=== PATIENT | male | born 1945 | race Caucasian/White ===

== ENCOUNTER 2016-02-27 20:24 | Inpatient (IN) | payer MEDICARE, MEDICAID ==
[~2016-02-27] VITALS: Ht 180.3 cm; Wt 106.1 kg
[~2016-02-27 20:24] MED LIST: ALLO100 PO; COLA100C3 PO; COUM4TAB PO; COUM5TAB PO; FURO1TAB60 PO; GEMF600 PO; ISOS30TA15 PO; METO-309 PO; NEUR600T PO; PAXI10TA2 PO; POTA-163 PO; PRED20 PO; SYMB160A INH; TAMS5CAP PO; ZOCO80TA PO
[2016-02-27 20:25] VITALS: O2SAT 93
[2016-02-27 20:37] VITALS: BP 107/61; PULSE 112; RESP 35; TEMP 97.7; O2SAT 77
--- NOTE | 2016-02-27 20:44 | PD ---
HPI Chief Complaint: Respiratory Distress Time Seen by Provider: 20:31 Travel History International Travel<30 days: No Contact w/Intl Traveler<30days: No History of Present Illness HPI 70 y/o male presents by ambulance with shortness of breath. On CPAP his oxygen saturation was 76 on arrival. Patient can talk in very short sentences through BiPAP and denies any chest pain. He confirms he does not want to be intubated and has a DNR status sheet with him. Significant additional history limited on initial evaluation. The ambulance team gave him 100 mg of Lasix and a dose of nitroglycerin additionally PFSH Past Medical History Narrative Medical By records Arthritis: Yes Asthma: No Autoimmune Disease: No Anxiety: Yes Depression: Yes Heart Rhythm Problems: Yes Cancer: No Cardiac Catheterization: Yes Cardiovascular Problems: Yes ([place], CHF, CABG, AICD 2009) High Cholesterol: Yes Chemotherapy: No Chest Pain: No Congestive Heart Failure: No COPD: No Cerebrovascular Accident: No Coronary Artery Disease: Yes Diabetes: No Diminished Hearing: No Endocrine: No Gastrointestinal Disorders: Yes (GERD) Genitourinary: No Headaches: Yes Hiatal Hernia: No Hypertension: Yes Immune Disorder: No Implanted Vascular Access Dvce: Yes Kidney Stones: No Musculoskeletal: Yes (OA, HX OF R TOTAL HIP) Neurologic: Yes (SHORT TERM MEMORY LOSS, HX OF SEIZURES) Psychiatric: Yes (COGNITIVE MEMORY LOSS, HX OF ANTISOCIAL PERSONALITY DISORDER) Reproductive: No Respiratory: Yes Immunizations Current: No Myocardial Infarction: Yes Radiation Therapy: No Renal Failure: No Seizures: Yes Sickle Cell Disease: No Sleep Apnea: No Thyroid Disease: No Past Surgical History Narrative Surgical By records Abdominal Surgery: No AICD: Yes (MEDTRONIC) Cardiac Surgery: Yes (3 VESSEL BYPASS , AICD IMPLANTED 2009) Coronary Artery Bypass Graft: Yes (3 VESSELS) Ear Surgery: No Endocrine Surgery: No Eye Surgery: No Genitourinary Surgery: Yes (PROSTATE) Gynecologic Surgery: No Joint Replacement: No Oral Surgery: Yes (MED INDUCED SEIZURES) Pacemaker: Yes Thoracic Surgery: No Other Surgery: Yes Social History Narrative Social History By records Alcohol Use: No Tobacco Use: Yes (2 PPD) Substance Use: No Allergies-Medications (Allergen,Severity, Reaction): Coded Allergies: Depakote (Verified Allergy, Severe, SEIZURES, 02/27/16) "doesn't control seizures" Dilantin (Verified Allergy, Severe, SEIZURES, 02/27/16) "doesn't control seizures" Tetanus Toxoid (Verified Allergy, Severe, SWELLING, 02/27/16) MAJOR LOCAL SWELLING *MDRO Multi-Drug Resistant Organism (Verified Allergy, Unknown, 02/27/16) Klebsiella pneumoniae ESBL + 08/2012 Reported Meds & Prescriptions Reported Meds & Active Scripts Active Prednisone 20 Mg Tab 20 Mg PO DAILY Symbicort Inh (Budesonide/Formoterol Fumarate) 160-4.5 Mcg/Act Aero 1 Puff INH Q12HR Lasix (Furosemide) 40 Mg Tab 40 Mg PO DAILY 30 Days Reported Metoprolol Tartrate 25 Mg Tab 25 Mg PO BID Metformin (Metformin HCl) 500 Mg Tab 500 Mg PO BIDPC With meals Flomax (Tamsulosin HCl) 0.4 Mg Cap 0.4 Mg PO HS Zocor (Simvastatin) 80 Mg Tab 80 Mg PO HS Coumadin (Warfarin) 5 Mg Tab 5 Mg PO DAILY, SAT & SUN Coumadin (Warfarin) 4 Mg Tab 4 Mg PO DAILY, MON-MON Neurontin (Gabapentin) 600 Mg Tab 1,200 Mg PO TID Colace (Docusate Sodium) 100 Mg Cap 100 Mg PO BID Potassium Chloride ER (Potassium Chloride) 20 Meq Tab 20 Meq PO DAILY Paxil (Paroxetine HCl) 10 Mg Tab 10 Mg PO DAILY Isosorbide Dinitrate 30 Mg Tab 30 Mg PO DAILY Zyloprim (Allopurinol) 100 Mg Tab 100 Mg PO DAILY Review of Systems ROS Limitations: Clinical Condition Physical Exam Exam Limitations: Clinical Condition Narrative General: In severe distress, focused exam performed Skin: Diaphoretic Eyes: Pupils equal Cardiovascular: irregular rate and rhythm Respiratory: Increased respiratory effort noted, Rales bilaterally Abdomen: Soft, nontender Extremities: Mild edema bilaterally Neuro: Moves all extremities, answers basic questions in short sentences, eyes open Data Data Last Documented VS Vital Signs Date Time Temp Pulse Resp B/P Pulse Ox O2 Delivery O2 Flow Rate FiO2 02/27/16 22:02 65 20 116/70 98 BiPAP 50 02/27/16 20:37 97.7 Orders Electrocardiogram (02/27/16 20:31) Complete Blood Count With Diff (02/27/16 20:31) Comprehensive Metabolic Panel (02/27/16 20:31) Prothrombin Time / Inr (Pt) (02/27/16 20:31) Act Partial Throm Time (Ptt) (02/27/16 20:31) Lactic Acid Sepsis Protocol (02/27/16 20:31) Magnesium (Mg) (02/27/16 20:31) Phosphorus (Po4) (02/27/16 20:31) Ckmb (Isoenzyme) Profile (02/27/16 20:31) Troponin I (02/27/16 20:31) Urinalysis - C+S If Indicated (02/27/16 20:31) Blood Culture (02/27/16 20:31) Chest, Single Ap (02/27/16 20:31) Blood Glucose (02/27/16 20:31) Ecg Monitoring (02/27/16 20:31) Iv Access Insert/Monitor (02/27/16 20:31) Oximetry (02/27/16 20:31) Oxygen Administration (02/27/16 20:31) Urinary Catheter Insert/Apply (02/27/16 20:31) Resp Bipap / Cpap Non Invas Vt (02/27/16 ) Code Status (02/27/16 20:40) Arterial Blood Gas (Abg) (02/27/16 21:30) B-Type Natriuretic Peptide (02/27/16 22:27) Cefepime Inj (Maxipime Inj) (02/27/16 22:29) Azithromycin Inj (Zithromax Inj) (02/27/16 22:29) Admit Order (Ed Use Only) (02/27/16 22:39) Labs Laboratory Tests Test 02/27/16 02/27/16 02/27/16 20:40 20:50 21:40 White Blood Count 11.5 TH/MM3 Red Blood Count 4.28 MIL/MM3 Hemoglobin 14.1 GM/DL Hematocrit 42.3 % Mean Corpuscular Volume 98.7 FL Mean Corpuscular Hemoglobin 32.8 PG Mean Corpuscular Hemoglobin 33.3 % Concent Red Cell Distribution Width 13.2 % Platelet Count 264 TH/MM3 Mean Platelet Volume 7.8 FL Neutrophils (%) (Auto) 52.5 % Lymphocytes (%) (Auto) 36.5 % Monocytes (%) (Auto) 8.8 % Eosinophils (%) (Auto) 1.8 % Basophils (%) (Auto) 0.4 % Neutrophils # (Auto) 6.1 TH/MM3 Lymphocytes # (Auto) 4.2 TH/MM3 Monocytes # (Auto) 1.0 TH/MM3 Eosinophils # (Auto) 0.2 TH/MM3 Basophils # (Auto) 0.0 TH/MM3 CBC Comment DIFF FINAL Differential Comment Prothrombin Time 25.0 SEC Prothromb Time International 2.2 RATIO Ratio Activated Partial 39.9 SEC Thromboplast Time Sodium Level 135 MEQ/L Potassium Level 3.7 MEQ/L Chloride Level 98 MEQ/L Carbon Dioxide Level 23.9 MEQ/L Anion Gap 13 MEQ/L Blood Urea Nitrogen 28 MG/DL Creatinine 1.78 MG/DL Estimat Glomerular Filtration 38 ML/MIN Rate Random Glucose 300 MG/DL Lactic Acid Level 5.5 mmol/L Calcium Level 8.9 MG/DL Phosphorus Level 5.5 MG/DL Magnesium Level 2.1 MG/DL Total Bilirubin 0.3 MG/DL Aspartate Amino Transf 12 U/L (AST/SGOT) Alanine Aminotransferase 17 U/L (ALT/SGPT) Alkaline Phosphatase 58 U/L Total Creatine Kinase 83 U/L Troponin I 0.05 NG/ML Total Protein 7.9 GM/DL Albumin 3.8 GM/DL Urine Color YELLOW Urine Turbidity CLEAR Urine pH 6.0 Urine Specific [place] 1.011 Urine Protein NEG mg/dL Urine Glucose (UA) NEG mg/dL Urine Ketones NEG mg/dL Urine Occult Blood NEG Urine Nitrite NEG Urine Bilirubin NEG Urine Urobilinogen LESS THAN 2.0 MG/DL Urine Leukocyte Esterase NEG Urine RBC LESS THAN 1 /hpf Urine WBC LESS THAN 1 /hpf Urine Hyaline Casts 5 /lpf Microscopic Urinalysis Comment CULT NOT INDICATED Blood Gas Puncture Site RT RADIAL Blood Gas Patient Temperature 98.6 Blood Gas HCO3 24 mmol/L Blood Gas Base Excess -1.8 mmol/L Blood Gas Oxygen Saturation 92 % Arterial Blood pH 7.31 Arterial Blood Partial 49 mmHg Pressure CO2 Arterial Blood Partial 363 mmHG Pressure O2 Arterial Blood Oxygen Content 19.8 Vol % Arterial Blood 5.1 % Carboxyhemoglobin Arterial Blood Methemoglobin 2.1 % Blood Gas Hemoglobin 14.6 G/DL Oxygen Delivery Device BIPAP 12PS 8 PEEP Blood Gas Inspired Oxygen 100 % MDM Medical Decision Making Medical Screen Exam Complete: Yes Emergency Medical Condition: Yes Medical Record Reviewed: Yes (past history confirm, prior EKG reviewed, recent hospitalization with non-STEMI at end of January) Interpretation(s) EKG is atrial fibrillation at 105 with left bundle branch block which limits full interpretation CBC & BMP Diagram 02/27/16 20:40 Last 24 hours Impressions Chest X-Ray 02/27/162030 Signed Impressions: Service Date/Time: Saturday, February 27, 2016 20:57 - CONCLUSION: Findings consistent with cardiac decompensation CHF Hakan Chilel MD lactic acid is elevated at 5.5 ABG shows pH of 7.3 and PCO2 of 48 with PO2 of 363 so we'll decrease FiO2 to 40 % and continue pressor support of 12 and decreased PEEP to 6 and will continue to monitor Differential Diagnosis [place], CHF exacerbation, pneumonia, anemia, renal failure..... Narrative Course will check labs, cxr, ekg and place on bipap and follow, already received Lasix and nitroglycerin On recheck patient feels better on BiPAP and oxygen saturation is 96%. We'll continue to monitor Patient has improved on BiPAP and with review of gas Will titrate down FiO2. He 'll need to be closely monitored in the ICU. His lactate is significantly elevated at 5.5 so will add antibiotic therapy of cefepime and azithromycin to cover but given he isn't an active CHF exacerbation he clearly does not need IV fluid hydration and would worsen in regards if given fluids and lactate is likely elevated given significant CHF exacerbation. Critical Care Narrative Aggregate critical care time was 55 minutes. Time to perform other separately billable procedures was not included in the critical care time. My time did not include minutes spent treating any other patients simultaneously or on activities that did not directly contribute to the patient's treatment. The services I provided to this patient were to treat and/or prevent clinically significant deterioration that could result in: Respiratory failure, [place] I provided critical care services requiring my management, as noted below: Chart data review, documentation time, medication orders and management, vital sign assessments/reviewing monitor data, ordering and reviewing lab tests, ordering and interpreting/reviewing x-rays and diagnostic studies, care of the patient and discussion of the patient with the admitting physicians. Physician Communication Physician Communication dr beal agrees to admit Diagnosis Primary Impression: CHF exacerbation Qualified Code: I50.9 - Acute on chronic congestive heart failure, unspecified congestive heart failure type Additional Impressions: Acute hypercapnic respiratory failure Renal insufficiency Lactic acidosis Admitting Information Admitting Physician Requests: Admit Zabrina Almanzar MD Feb 27, 2016 20:44 Zabrina Almanzar MD Feb 27, 2016 20:44
[2016-02-27 20:52] VITALS: RESP 35; O2SAT 99
[2016-02-27 21:10] VITALS: BP 100/56; PULSE 76; RESP 30; O2SAT 100
--- NOTE | 2016-02-27 21:10 | RADRPT ---
EXAM DATE/TIME: 02/27/2016 20:57 [facility] COMPARISON: CHEST SINGLE AP, December 23, 2013, 10:52. CHEST SINGLE AP, February 09, 2016, 0:49. INDICATIONS : Short of Breath MEDICAL HISTORY : Hypertension. Chronic obstructive pulmonary disease. SURGICAL HISTORY : Pacemaker. CABG. ENCOUNTER: Initial ACUITY: 1 day PAIN SCORE: 0/10 LOCATION: Bilateral chest FINDINGS: Note is evidence of prior median sternotomy cardiac surgery is left ventricular cardiomegaly and a bi polar pacemaker AICD device overlying the left hemithorax. Pulmonary vascularity is prominent particu larly in the bases with perivascular edema consistent with CHF CONCLUSION: Findings consistent with cardiac decompensation CHF Hakan Chilel MD on February 27, 2016 at 21:07 Board Certified Radiologist. This report was verified electronically.
[2016-02-27 21:13] LABS: AUTOMATED NEUTROPHIL # 6.1 TH/MM3 (1.8-7.7); BASOPHIL % 0.4 % (0.0-2.0); EOSINOPHIL # 0.2 TH/MM3 (0-0.4); EOSINOPHIL % 1.8 % (0.0-4.0); HEMATOCRIT 42.3 % (39.0-51.0); HEMO FLAGS DIFF FINAL; LYMPH % 36.5 % (9.0-44.0); LYMPHOCYTE # 4.2 TH/MM3 (1.0-4.8); MEAN CELL VOLUME 98.7 FL (80.0-100.0); MEAN CORPUSCULAR HEMOGLOBIN 32.8 PG (27.0-34.0); MEAN CORPUSCULAR HGB CONC 33.3 % (32.0-36.0); MONO % 8.8 % (0.0-8.0); NEUT % 52.5 % (16.0-70.0); PLATELET COUNT 264 TH/MM3 (150-450); RED BLOOD COUNT 4.28 MIL/MM3 (4.50-5.90); RED CELL DISTRIBUTION WIDTH 13.2 % (11.6-17.2); WHITE BLOOD COUNT 11.5 TH/MM3 (4.0-11.0)
[2016-02-27 21:24] LABS: APTT (PATIENT) 39.9 SEC (24.3-30.1); INTERNATIONAL NORMALIZED RATIO 2.2 RATIO
[2016-02-27 21:34] LABS: ANION GAP 13 MEQ/L (5-15); AST (GOT) 12 U/L (15-37); BICARBONATE 23.9 MEQ/L (21.0-32.0); BLOOD UREA NITROGEN 28 MG/DL (7-18); CHLORIDE 98 MEQ/L (98-107); GLOMERULAR FILTRATION RATE 38 ML/MIN (>89); MAGNESIUM 2.1 MG/DL (1.5-2.5); POTASSIUM 3.7 MEQ/L (3.5-5.1); SODIUM (NA) 135 MEQ/L (136-145)
[2016-02-27 21:35] LABS: BLOOD, URINE NEG (NEG); COMMENT (UR) CULT NOT INDICATED; CULTURE IF INDICATED CULT NOT INDICATED; GLUCOSE,URINE NEG (NEG); HYALINE CAST, URINE 5 /lpf (RARE); KETONE, URINE NEG (NEG); NITRITE,URINE NEG (NEG); URINE COLOR YELLOW (YELLW/STRAW)
[2016-02-27 21:38] LABS: ALKALINE PHOSPHATASE 58 U/L (45-117); ALT (GPT) 17 U/L (12-78); TOTAL BILIRUBIN ADULT 0.3 MG/DL (0.2-1.0)
[2016-02-27 21:54] LABS: CREATINE KINASE 83 U/L (39-308)
[2016-02-27 22:02] VITALS: BP 116/70; PULSE 65; RESP 20; O2SAT 98
[2016-02-27] MEDS ORDERED: METF500T PO (22:25)
[2016-02-27] MEDS ORDERED: METO25TA3 PO (22:25)
[2016-02-27] MEDS ORDERED: AZITHROMYCIN INJ 500 MG in SODIUM CHLOR 0.9% 250 ML INJ 250 ML IV STA (22:29)
[2016-02-27] MEDS ORDERED: CEFEPIME INJ 2,000 MG in SODIUM CHLORIDE 0.9% INJ 100 ML IV STA (22:29)
[2016-02-27 22:34] LABS: BLOOD GAS BASE EXCESS -1.8 mmol/L (-2-2); BLOOD GAS CARBOXYHEMOGLOBIN 5.1 % (0-4); BLOOD GAS HCO3 24 mmol/L (22-26); BLOOD GAS METHEMOGLOBIN 2.1 % (0-2); BLOOD GAS O2 HGB SATURATION 92 % (90-100); BLOOD GAS OXYGEN CONTENT 19.8 Vol % (12.0-20.0); BLOOD GAS PCO2 49 mmHg (38-42); BLOOD GAS PO2 363 mmHG (61-120); BLOOD GAS TOTAL HGB 14.6 G/DL (12.0-16.0); TEMP CORR TO 98.6
[2016-02-27 22:35] LABS: CRITICAL VALUE YES; DRAW SITE RT RADIAL; FIO2 100 %; NUMBER OF ARTERIAL PUNCTURES 1; OXYGEN DEVICE BIPAP 12PS 8 PEEP; STAT YES; ULNAR PULSE PRESENT
[2016-02-27 22:54] LABS: LACTIC ACID GHOST NOT REPORTABLE
[2016-02-27 23:00] VITALS: O2SAT 99
[2016-02-27] MEDS ORDERED: GLUCAGON 1 MG/ML VIAL OTHER PRN (23:00)
[2016-02-27] MEDS ORDERED: MORPHINE SULFATE 4 MG/ML INJ IV PRN (23:00)
[2016-02-27] MEDS ORDERED: ACETAMINOPHEN 325 MG TAB PO PRN (23:00)
[2016-02-27] MEDS ORDERED: SODIUM CHLORIDE 0.9% FLUSH 5 ML FLUSH FLUSH PRN (23:00)
[2016-02-27] MEDS ORDERED: DEXTROSE 50% IN WATER 50 ML VIAL(D50) IV PUSH PRN (23:00)
[2016-02-27] MEDS ORDERED: ONDANSETRON HCL 4 MG/2 ML VIAL IVP PRN (23:00)
[2016-02-27] MEDS ORDERED: BISACODYL 10 MG SUPP PR PRN (23:00)
[2016-02-27] MEDS ORDERED: ACETAMINOPHEN/HYDROcodone 325 MG/5 MG TAB PO PRN (23:00)
--- NOTE | 2016-02-27 23:02 | HHI.HP ---
[facility] Non-Staff Admission Diagnosis chf exacerbation Diagnoses: (1) CHF exacerbation Diagnosis: Principal (2) COPD (chronic obstructive pulmonary disease) Diagnosis: Principal (3) Acute hypercapnic respiratory failure Diagnosis: Principal (4) Lactic acidosis Diagnosis: Principal (5) KATE (acute kidney injury) Diagnosis: Principal (6) DNR (do not resuscitate) Diagnosis: Principal Travel History International Travel<30 Days: No Contact w/Intl Traveler <30 Da: No Traveled to Known Affected Are: No History of Present Illness This is a 70-year-old DNR male with a PMH of Anxiety, Depression, CHF (Echo w/ EF 40-45%), CAD s/p CABG, AICD, COPD, Tobacco Abuse and DM who was brought to the ER by EMS secondary to SOB and acute respiratory failure. On EMS arrival, O2 sat 77% on RA, s/p Lasix 100mg IV and placed on CPAP. Currently on BIPAP w/ FIO2 50%, O2 sat 98%. Pt confirms he is DNR/DNI. Denies fevers or chills. BP 100/56, HR 76, RR 30, O2 sat 100% on BiPAP w/ 100% FIO2. WBC 11.5. Creatinine 1.78, previously 1.23 on 02/10/16. Lactic Acid 5.5. Troponin 0.05. INR 2.2. UA negative. CXR with cardiac decompensation, CHF. Review of Systems Other ROS: Limited secondary to being on BiPAP however largely negative. Past Family Social History Past Medical History PMH: Anxiety, Depression, CHF (Echo 02/09/16 w/ EF 40-45%), CAD s/p CABG, AICD , COPD, Tobacco Abuse and DM Past Surgical History PAST SURGICAL HISTORY: AICD, CABG, Prostate Surgery Allergies: Coded Allergies: Depakote (Verified Allergy, Severe, SEIZURES, 02/27/16) "doesn't control seizures" Dilantin (Verified Allergy, Severe, SEIZURES, 02/27/16) "doesn't control seizures" Tetanus Toxoid (Verified Allergy, Severe, SWELLING, 02/27/16) MAJOR LOCAL SWELLING *MDRO Multi-Drug Resistant Organism (Verified Allergy, Unknown, 02/27/16) Klebsiella pneumoniae ESBL + 08/2012 Family History PAST FAMILY HISTORY: Reviewed, positive for DM and CAD. Social History PAST SOCIAL HISTORY: Smokes 2ppd. Negative for alcohol or drugs. Physical Exam Vital Signs Vital Signs Date Time Temp Pulse Resp B/P Pulse Ox O2 Delivery O2 Flow Rate FiO2 02/27/16 22:02 65 20 116/70 98 BiPAP 50 02/27/16 21:10 76 30 100/56 100 BiPAP 100 02/27/16 20:52 35 99 BiPAP 100 02/27/16 20:40 86 35 97 BiPAP 100 02/27/16 20:37 97.7 112 35 107/61 77 Physical Exam PE: GENERAL: Middle-aged white male in no acute distress. Currently on BiPAP HEENT: PERRLA, EOMI. No scleral icterus or conjunctival pallor. No lid lag or facial droop. CARDIOVASCULAR: Regular rate and rhythm. No obvious murmurs to auscultation. No chest tenderness to palpation. RESPIRATORY: No obvious rhonchi or wheezing. Clear to auscultation. Breath sounds equal bilaterally, decreased at bases. GASTROINTESTINAL: Abdomen soft, non-tender, nondistended. BS normal. MUSCULOSKELETAL: Extremities without clubbing, cyanosis, or edema. No obvious deformities. NEUROLOGICAL: Awake, alert and oriented x4. No focal neurologic deficits. Moving both upper and lower extremities spontaneously. Laboratory Laboratory Tests Test 02/27/16 02/27/16 02/27/16 20:40 20:50 21:40 White Blood Count 11.5 Red Blood Count 4.28 Hemoglobin 14.1 Hematocrit 42.3 Mean Corpuscular Volume 98.7 Mean Corpuscular Hemoglobin 32.8 Mean Corpuscular Hemoglobin 33.3 Concent Red Cell Distribution Width 13.2 Platelet Count 264 Mean Platelet Volume 7.8 Neutrophils (%) (Auto) 52.5 Lymphocytes (%) (Auto) 36.5 Monocytes (%) (Auto) 8.8 Eosinophils (%) (Auto) 1.8 Basophils (%) (Auto) 0.4 Neutrophils # (Auto) 6.1 Lymphocytes # (Auto) 4.2 Monocytes # (Auto) 1.0 Eosinophils # (Auto) 0.2 Basophils # (Auto) 0.0 CBC Comment DIFF FINAL Differential Comment Prothrombin Time 25.0 Prothromb Time International 2.2 Ratio Activated Partial 39.9 Thromboplast Time Sodium Level 135 Potassium Level 3.7 Chloride Level 98 Carbon Dioxide Level 23.9 Anion Gap 13 Blood Urea Nitrogen 28 Creatinine 1.78 Estimat Glomerular Filtration 38 Rate Random Glucose 300 Lactic Acid Level 5.5 Calcium Level 8.9 Phosphorus Level 5.5 Magnesium Level 2.1 Total Bilirubin 0.3 Aspartate Amino Transf 12 (AST/SGOT) Alanine Aminotransferase 17 (ALT/SGPT) Alkaline Phosphatase 58 Total Creatine Kinase 83 Troponin I 0.05 Total Protein 7.9 Albumin 3.8 Urine Color YELLOW Urine Turbidity CLEAR Urine pH 6.0 Urine Specific [place] 1.011 Urine Protein NEG Urine Glucose (UA) NEG Urine Ketones NEG Urine Occult Blood NEG Urine Nitrite NEG Urine Bilirubin NEG Urine Urobilinogen LESS THAN 2.0 Urine Leukocyte Esterase NEG Urine RBC LESS THAN 1 Urine WBC LESS THAN 1 Urine Hyaline Casts 5 Microscopic Urinalysis Comment CULT NOT INDICATED Blood Gas Puncture Site RT RADIAL Blood Gas Patient Temperature 98.6 Blood Gas HCO3 24 Blood Gas Base Excess -1.8 Blood Gas Oxygen Saturation 92 Arterial Blood pH 7.31 Arterial Blood Partial 49 Pressure CO2 Arterial Blood Partial 363 Pressure O2 Arterial Blood Oxygen Content 19.8 Arterial Blood 5.1 Carboxyhemoglobin Arterial Blood Methemoglobin 2.1 Blood Gas Hemoglobin 14.6 Oxygen Delivery Device BIPAP 12PS 8 PEEP Blood Gas Inspired Oxygen 100 Date/Time Procedure Status Source Growth 02/27/16 20:40 Aerobic Blood Culture Received Blood Peripheral Pending 02/27/16 20:40 Anaerobic Blood Culture Received Blood Peripheral Pending Result Diagram: 02/27/16203902/27/162039 Assessment and Plan Problem List: (1) CHF (congestive heart failure) ICD Code: I50.9 Status: Acute (2) COPD (chronic obstructive pulmonary disease) ICD Code: J44.9 Status: Acute (3) Acute hypercapnic respiratory failure ICD Code: J96.02 Status: Acute (4) Lactic acidosis ICD Code: E87.2 Status: Acute (5) KATE (acute kidney injury) ICD Code: N17.9 Status: Acute (6) Tobacco abuse ICD Code: Z72.0 Status: Acute (7) DNR (do not resuscitate) ICD Code: Z66 Status: Acute Assessment and Plan A/P: 1. Acute Respiratory Failure: Hypercapnic. Likely multifactorial-CHF and COPD. O2 sat 77% on RA upon EMS arrival, currently on BIPAP weaned to 60% FIO2 w/ O2 sat 96%. Continue BIPAP, wean as tolerated. Pt confirms DNR/DNI status. 2. CHF: Acute on Chronic. Systolic. Echo 02/09/16 w/ EF 40-45%. BNP pending. CXR w/ CHF, images reviewed by me. S/p Lasix 100mg IV en route to ER , continue Lasix 40mg IV bid-caution w/ renal insufficiency. 3. COPD: Chronic Respiratory Failure w/ Acute Exacerbation. DuoNeb q4h and q2h prn. Resume home MDI. 4. Lactic Acidosis: Lactate 5.5, likely secondary to hypoxia rather than Sepsis. No infectious etiology noted, however will treat empirically for CAP w / Rocephin/Zithro. Repeat Lactic Acid in am. 5. KATE: Creatinine 1.78, previously 1.23 on 02/10/16. Likely dehydration from increased respiratory losses in combination w/ diuretic therapy. U/a negative, repeat labs in am. 6. DM: Sliding scale w/ Accu-Cheks. 7. DVT Prophylaxis: On Coumadin, INR therapeutic at 2.2. 8. Social work for d/c planning as needed. 9. Case discussed w/ ER physician at length. Physician Certification 2 Midnight Certification Type: Admission for Inpatient Services Order for Inpatient Services The services are ordered in accordance with Medicare regulations or non- Medicare payer requirements, as applicable. In the case of services not specified as inpatient-only, they are appropriately provided as inpatient services in accordance with the 2-midnight benchmark. Estimated LOS (days): 2 days is the estimated time the patient will need to remain in the hospital, assuming treatment plan goals are met and no additional complications. Post-Hospital Plan: Not yet determined Problem Qualifiers (1) CHF exacerbation: Qualified Code: I50.9 - Acute on chronic congestive heart failure, unspecified congestive heart failure type Carmen Jewell MD Feb 27, 2016 23:01
[2016-02-27] MEDS ORDERED: RESP: ALBUTEROL 2.5 MG/IPRATROPIUM 0.5 MG NEB (PRN) NEB (23:30)
[2016-02-28] VITALS (14 sets, daily range): BP systolic 98–130; BP diastolic 58–89; PULSE 61–89; RESP 16–22; TEMP 97.8–99; O2SAT 93–99
[2016-02-28] MEDS ORDERED: AZITHROMYCIN INJ 500 MG in SODIUM CHLOR 0.9% 250 ML INJ 250 ML IV SCH ×2 (01:00→23:00)
[2016-02-28] MEDS: cefTRIAXone INJ 1,000 MG in SODIUM CHLORIDE 0.9% INJ 100 ML IV SCH ×2 (02:00→23:06)
--- NOTE | 2016-02-28 05:18 | PD.CONS ---
[facility] Service Critical Care Medicine Consult Requested By Dr. Almanzar Reason for Consult CHF, respiratory failure on Bipap Primary Care Physician Non-Staff History of Present Illness 70 year-old male with past medical history of ischemic cardiomyopathy with chronic systolic heart failure (EF 40-45%), prior CABG, AICD, atrial fibrillation on chronic anticoagulation with warfarin, COPD, tobacco abuse, CKD stage III, with history of medical nonadherence who presents to [facility] with shortness of breath which she states began yesterday evening. He states he has had a very minimal nonproductive cough. He denies chest pain or hemoptysis. [facility] administered Lasix 100 mg IV and nitroglycerin. He was placed on CPAP per [facility] and arrived with sats in mid 70s. Was placed on Bipap per Dr. Almanzar, 01/27 and FIO2 was titrated to 40%. He indicated he is DNR/DNI to Dr. Almanzar and he confirms this to me as well. Following diuretics, he has had 1500 UOP. He has just been taken off Bipap and appears comfortable on 4 L nasal cannula with sats 99%. He is admitted to the hospitalist service. Review of Systems Respiratory: COMPLAINS OF: Shortness of breath Cardiovascular: COMPLAINS OF: Lower Extremity Edema Past Family Social History Allergies: Coded Allergies: Depakote (Verified Allergy, Severe, SEIZURES, 02/27/16) "doesn't control seizures" Dilantin (Verified Allergy, Severe, SEIZURES, 02/27/16) "doesn't control seizures" Tetanus Toxoid (Verified Allergy, Severe, SWELLING, 02/27/16) MAJOR LOCAL SWELLING *MDRO Multi-Drug Resistant Organism (Verified Allergy, Unknown, 02/27/16) Klebsiella pneumoniae ESBL + 08/2012 Past Medical History Hypertension Coronary artery disease with prior myocardial infarction Prior history of CABG Chronic systolic heart failure with ejection fraction of 40-45% Atrial fibrillation on chronic anticoagulations with warfarin Chronic kidney disease stage III COPD Tobacco abuse Depression Diabetes Peripheral neuropathy Past Surgical History 3 vessel CABG AICD 2009 Prostatectomy Social History He is an ongoing smoker 2 packs of cigarettes per day Denies use of alcohol or illicit drugs Physical Exam Vital Signs Vital Signs Date Time Temp Pulse Resp B/P Pulse Ox O2 Delivery O2 Flow Rate FiO2 02/28/16 04:00 65 02/28/16 04:00 98.0 65 19 109/76 94 02/28/16 03:41 97.8 65 19 130/77 94 02/28/16 01:30 99 4.00 02/28/16 00:01 70 18 114/66 99 BiPAP 40 02/27/16 23:00 99 40 02/27/16 22:02 65 20 116/70 98 BiPAP 50 02/27/16 21:10 76 30 100/56 100 BiPAP 100 02/27/16 20:52 35 99 BiPAP 100 02/27/16 20:40 86 35 97 BiPAP 100 02/27/16 20:37 97.7 112 35 107/61 77 02/27/16 20:25 93 100 Physical Exam Temp 97.8 HR 60s BP 136/77 sats 99% 4 L NC GENERAL: Well-nourished, well-developed patient sitting up in ED [facility]. SKIN: Warm and dry. HEAD: Atraumatic. Normocephalic. EYES: No scleral icterus. No injection or drainage. ENT: No nasal bleeding or discharge. Mucous membranes pink and moist. NECK: Trachea midline. No JVD. CARDIOVASCULAR: irregularly irregular. No murmurs rubs or gallops. RESPIRATORY: Bibasilar rales, breathing comfortably without accesssory muscle use. . GASTROINTESTINAL: Abdomen soft, non-tender, nondistended. MUSCULOSKELETAL: Extremities without clubbing, cyanosis, . 1+ bipedal edema. NEUROLOGICAL: Awake and alert. No obvious cranial nerve deficits. Motor grossly within normal limits. Normal speech. Laboratory Laboratory Tests Test 02/27/16 02/27/16 02/27/16 20:40 20:50 21:40 White Blood Count 11.5 Red Blood Count 4.28 Hemoglobin 14.1 Hematocrit 42.3 Mean Corpuscular Volume 98.7 Mean Corpuscular Hemoglobin 32.8 Mean Corpuscular Hemoglobin 33.3 Concent Red Cell Distribution Width 13.2 Platelet Count 264 Mean Platelet Volume 7.8 Neutrophils (%) (Auto) 52.5 Lymphocytes (%) (Auto) 36.5 Monocytes (%) (Auto) 8.8 Eosinophils (%) (Auto) 1.8 Basophils (%) (Auto) 0.4 Neutrophils # (Auto) 6.1 Lymphocytes # (Auto) 4.2 Monocytes # (Auto) 1.0 Eosinophils # (Auto) 0.2 Basophils # (Auto) 0.0 CBC Comment DIFF FINAL Differential Comment Prothrombin Time 25.0 Prothromb Time International 2.2 Ratio Activated Partial 39.9 Thromboplast Time Sodium Level 135 Potassium Level 3.7 Chloride Level 98 Carbon Dioxide Level 23.9 Anion Gap 13 Blood Urea Nitrogen 28 Creatinine 1.78 Estimat Glomerular Filtration 38 Rate Random Glucose 300 Lactic Acid Level 5.5 Calcium Level 8.9 Phosphorus Level 5.5 Magnesium Level 2.1 Total Bilirubin 0.3 Aspartate Amino Transf 12 (AST/SGOT) Alanine Aminotransferase 17 (ALT/SGPT) Alkaline Phosphatase 58 Total Creatine Kinase 83 Troponin I 0.05 Total Protein 7.9 Albumin 3.8 B-Type Natriuretic Peptide 1162 Urine Color YELLOW Urine Turbidity CLEAR Urine pH 6.0 Urine Specific [place] 1.011 Urine Protein NEG Urine Glucose (UA) NEG Urine Ketones NEG Urine Occult Blood NEG Urine Nitrite NEG Urine Bilirubin NEG Urine Urobilinogen LESS THAN 2.0 Urine Leukocyte Esterase NEG Urine RBC LESS THAN 1 Urine WBC LESS THAN 1 Urine Hyaline Casts 5 Microscopic Urinalysis Comment CULT NOT INDICATED Blood Gas Puncture Site RT RADIAL Blood Gas Patient Temperature 98.6 Blood Gas HCO3 24 Blood Gas Base Excess -1.8 Blood Gas Oxygen Saturation 92 Arterial Blood pH 7.31 Arterial Blood Partial 49 Pressure CO2 Arterial Blood Partial 363 Pressure O2 Arterial Blood Oxygen Content 19.8 Arterial Blood 5.1 Carboxyhemoglobin Arterial Blood Methemoglobin 2.1 Blood Gas Hemoglobin 14.6 Oxygen Delivery Device BIPAP 12PS 8 PEEP Blood Gas Inspired Oxygen 100 Date/Time Procedure Status Source Growth 02/27/16 20:40 Aerobic Blood Culture Received Blood Peripheral Pending 02/27/16 20:40 Anaerobic Blood Culture Received Blood Peripheral Pending Result Diagram: 02/27/16203902/27/162039 Assessment and Plan Assessment and Plan NEURO: Depression Peripheral neuropathy Continue Paxil 10 mg po daily Continue gabapentin 1200 tid RESP: Acute hypercapnic and hypoxemic respiratory failure on BiPAP (resolved) Pulmonary edema, improved COPD Nasal cannula wean as tolerated. Use BiPAP as needed. s/p Lasix 100 mg IV per [facility]. Lasix 40 mg IV q12 Continue Symbicort q 12 hours Continue DuoNeb every 4 hours. Albuterol every 2 hours when necessary. CV: Acute decompensated heart failure Chronic systolic heart failure Atrial fibrillation Hypertension Hyperlipidemia Continue Isordil 30 mg po daily Continue pravastatin 80 mg by mouth daily at bedtime Continue Lasix as per above. On chronic anticoagulation with warfarin for A. fib. INR is therapeutic GI: Heart healthy diet, 2000-calorie ADA FEN/RENAL: Chronic kidney disease stage III Regalado is in place as he is on diuretics. After his respiratory status improves Regalado catheter removed. ID: Leukocytosis Has been started on empiric antimicrobial coverage with ceftriaxone and azithromycin per primary team. HEME: Chronic anticoagulation Monitor CBC On chronic anticoagulation with warfarin for A. fib. INR is therapeutic ENDO: Diabetes mellitus Metformin on hold. Low-dose insulin sliding scale with bedside glucose AC/hs PROPH: Anticoagulation with warfarin will provide DVT prophylaxis as well. Stress ulcer prophylaxis is not indicated. ACCESS: Peripheral IV providing adequate access at this time. Level 3 consult. Patient has responded to diuresis and is currently off BiPAP. He is on nasal cannula and appears comfortable. Continue management per hospitalist service. Ana Muro MD Feb 28, 2016 05:18
[2016-02-28 05:45] LABS: AUTOMATED NEUTROPHIL # 8.3 TH/MM3 (1.8-7.7); BASOPHIL # 0.1 TH/MM3 (0-0.2); EOSINOPHIL % 0.3 % (0.0-4.0); HEMATOCRIT 38.8 % (39.0-51.0); HEMO FLAGS DIFF FINAL; LYMPHOCYTE # 1.4 TH/MM3 (1.0-4.8); MEAN CELL VOLUME 95.6 FL (80.0-100.0); MEAN CORPUSCULAR HEMOGLOBIN 32.4 PG (27.0-34.0); MEAN CORPUSCULAR HGB CONC 33.9 % (32.0-36.0); MONO % 9.8 % (0.0-8.0); NEUT % 75.9 % (16.0-70.0); PLATELET COUNT 212 TH/MM3 (150-450); RED BLOOD COUNT 4.06 MIL/MM3 (4.50-5.90); WHITE BLOOD COUNT 10.9 TH/MM3 (4.0-11.0)
[2016-02-28 06:20] LABS: ALKALINE PHOSPHATASE 50 U/L (45-117); ALT (GPT) 25 U/L (12-78); ANION GAP 7 MEQ/L (5-15); AST (GOT) 152 U/L (15-37); BLOOD UREA NITROGEN 26 MG/DL (7-18); CHLORIDE 100 MEQ/L (98-107); GLOMERULAR FILTRATION RATE 54 ML/MIN (>89); INTERNATIONAL NORMALIZED RATIO 2.6 RATIO; POTASSIUM 3.7 MEQ/L (3.5-5.1); PROTHROMBIN TIME - PATIENT 29.4 SEC (9.8-11.6); SODIUM (NA) 136 MEQ/L (136-145); TOTAL BILIRUBIN ADULT 0.4 MG/DL (0.2-1.0)
[2016-02-28] MEDS: INSULIN ASPART SUPPLEMENTAL SCALE SQ SCH ×4 (06:39→20:39)
[2016-02-28] MEDS: RESP: ALBUTEROL 2.5 MG/IPRATROPIUM 0.5 MG NEB (SCH) NEB ×4 (07:32→19:36)
--- NOTE | 2016-02-28 08:47 | HHI.FPPN ---
Subjective Remarks Admitted to the ICU overnight secondary to hypoxemia requiring BiPAP. Patient is now stable on 2 L nasal cannula. He denies any shortness of breath or chest pain. Denies cough or fever. States he is feeling much better than yesterday. (Lacey Mooney MD R3) Objective Vitals Vital Signs Date Time Temp Pulse Resp B/P Pulse Ox O2 Delivery O2 Flow Rate FiO2 02/28/16 07:33 97 Nasal Cannula 3.00 02/28/16 06:00 61 02/28/16 04:00 65 02/28/16 04:00 98.0 65 19 109/76 94 02/28/16 03:41 97.8 65 19 130/77 94 02/28/16 02:05 99 Nasal Cannula 3.00 02/28/16 02:00 94 Nasal Cannula 3.00 02/28/16 01:30 99 4.00 02/28/16 00:01 70 18 114/66 99 BiPAP 40 02/27/16 23:00 99 40 02/27/16 22:02 65 20 116/70 98 BiPAP 50 02/27/16 21:10 76 30 100/56 100 BiPAP 100 02/27/16 20:52 35 99 BiPAP 100 02/27/16 20:40 86 35 97 BiPAP 100 02/27/16 20:37 97.7 112 35 107/61 77 02/27/16 20:25 93 100 I/O 02/27/16 02/27/16 02/27/16 02/28/16 02/28/16 02/28/16 07:00 15:00 23:00 07:00 15:00 23:00 Intake Total 400 ml Output Total 2300 ml Balance -1900 ml Intake Oral 250 ml IV Total 150 ml Output Urine Total 2300 ml # Bowel Movements 0 (Lacey Mooney MD R3) Result Diagram: 02/28/1652402/28/16 0525 Objective Remarks Gen.: No acute distress. On 2 L nasal cannula satting 96% Head: Normocephalic. Atraumatic. EENT: Pupils equal round and reactive to light. Nose without drainage. Airway intact. Throat without injection. Cardiovascular: Regular rate and rhythm. No murmurs, rubs or gallops. Respiratory: Lungs clear to auscultation bilaterally. No wheezes or rhonchi. Abdomen: Soft, nontender, nondistended. No peritoneal signs. Musculoskeletal: No gross deformities. No edema. Skin: No obvious rashes or erythema. Neuro: Sensory and motor grossly intact. Cranial nerves II through XII grossly intact. Psych: Appropriate mood and affect (Lacey Mooney MD R3) A/P Assessment and Plan 70-year-old male with a past medical history significant for COPD, CAD, CHF, AICD, status post CABG and diabetes mellitus presented to the emergency department with acute respiratory failure. 1. Acute respiratory failure: Patient has been successfully weaned off BiPAP and is now stable on 2 L nasal cannula. Patient is DNR/DNI. Will likely need oxygen upon discharge, walk test ordered. 2. CHF: Acute on chronic. Echo 02/09/16 with EF of 4045%. BNP 1587. Continue Lasix 40 mg IV twice a day. 3. COPD: Continue home medications. Oxygen as above. Treatment for community- acquired pneumonia with Rocephin/azithromycin. 4. Lactic acidosis: Resolved. 5.5 on admission now 1.7. Likely secondary to acute respiratory failure not sepsis. 5. Acute Kidney injury: Creatinine improving. Monitor 6. Diabetes mellitus: Sliding scale insulin with Accu-Cheks 7. FEN Fluids: Hep-Lock IV. Continue aggressive diuresis for acute on chronic CHF exacerbation Electrolytes: Replete when necessary Nutrition: Diet heart healthy Transfer to floor today. (Lacey Mooney MD R3) Attending Attestation Patient seen and examined. Case reviewed and discussed with the resident team. Agree with plan of care as discussed with me and documented in the resident note. (Shelley Lowry MD) Problem List: (1) CHF exacerbation Status: Acute (2) COPD (chronic obstructive pulmonary disease) Status: Chronic (3) DNR (do not resuscitate) Status: Acute (4) KATE (acute kidney injury) Status: Acute (5) Lactic acidosis Status: Acute (6) Acute hypercapnic respiratory failure Status: Acute (Lacey Mooney MD R3) Problem Qualifiers (1) CHF exacerbation: Qualified Code: I50.9 - Acute on chronic congestive heart failure, unspecified congestive heart failure type Lacey Mooney MD R3 Feb 28, 2016 08:47 Shelley Lowry MD Feb 28, 2016 15:50
[2016-02-28] MEDS: BUDESONIDE-FORMOTEROL 160/4.5 MCG INHALER INH SCH ×2 (08:50→20:44)
[2016-02-28] MEDS: FUROSEMIDE 40 MG/4 ML VIAL IV PUSH SCH ×2 (08:52→16:07)
[2016-02-28] MEDS: PARoxetine HCL 20 MG TAB PO SCH (08:56)
[2016-02-28] MEDS: METOPROLOL TARTRATE 25 MG TAB PO SCH ×2 (08:56→20:38)
[2016-02-28] MEDS: SODIUM CHLORIDE 0.9% FLUSH 5 ML FLUSH FLUSH SCH ×2 (08:56→20:39)
[2016-02-28] MEDS: GABAPENTIN 300 MG CAP PO SCH ×3 (08:56→16:07)
[2016-02-28] MEDS: ALLOPURINOL 100 MG TAB PO SCH (08:56)
[2016-02-28] MEDS: ISOSORBIDE DINITRATE 10 MG TAB PO SCH (10:24)
--- NOTE | 2016-02-28 16:39 | EKG ---
Date Performed: 02/27/2016 Time Performed: 20:29:35 PTAGE: 70 years EKG: ATRIAL FIBRILLATION WITH RAPID VENTRICULAR RESPONSE Left bundle branch block with secondary ST/T wave changes ABNORMAL ECG Compared to the PREVIOUS TRACING from 02/09/16 14:23, now in atrial fibrillation with further LBBB DOCTOR: Contreras Mike Interpretating Date/Time 02/28/2016 16:37:48
[2016-02-28] MEDS ORDERED: PRAVASTATIN SOD 80 MG TAB PO SCH (21:00)
[2016-02-28] MEDS ORDERED: TAMSULOSIN HCL 0.4 MG CAP PO SCH (21:00)
[2016-02-29 00:15] VITALS: BP 102/60; PULSE 81; RESP 20; TEMP 98.5; O2SAT 93
[2016-02-29 04:00] VITALS: BP 100/57; PULSE 63; RESP 18; TEMP 98.1; O2SAT 95
[2016-02-29 06:08] LABS: AUTOMATED NEUTROPHIL # 7.2 TH/MM3 (1.8-7.7); BASOPHIL % 0.4 % (0.0-2.0); EOSINOPHIL % 0.4 % (0.0-4.0); HEMATOCRIT 37.4 % (39.0-51.0); HEMO FLAGS DIFF FINAL; LYMPH % 17.9 % (9.0-44.0); LYMPHOCYTE # 1.8 TH/MM3 (1.0-4.8); MEAN CELL VOLUME 95.1 FL (80.0-100.0); MEAN CORPUSCULAR HEMOGLOBIN 32.4 PG (27.0-34.0); MEAN CORPUSCULAR HGB CONC 34.1 % (32.0-36.0); MONO % 10.8 % (0.0-8.0); NEUT % 70.5 % (16.0-70.0); PLATELET COUNT 203 TH/MM3 (150-450); RED BLOOD COUNT 3.93 MIL/MM3 (4.50-5.90); RED CELL DISTRIBUTION WIDTH 13.5 % (11.6-17.2); WHITE BLOOD COUNT 10.1 TH/MM3 (4.0-11.0)
[2016-02-29 06:26] LABS: BICARBONATE 33.3 MEQ/L (21.0-32.0); POTASSIUM 3.4 MEQ/L (3.5-5.1)
[2016-02-29] MEDS: INSULIN ASPART SUPPLEMENTAL SCALE SQ SCH ×2 (06:31→12:22)
[2016-02-29] MEDS ORDERED: POTASSIUM CHLORIDE 10 MEQ CONTROLLED RELEASE TAB PO ONE (07:15)
[2016-02-29 08:00] VITALS: BP 120/57; PULSE 60; PULSE 66; RESP 22; TEMP 97.6; O2SAT 96
[2016-02-29 08:13] VITALS: O2SAT 95
[2016-02-29] MEDS: RESP: ALBUTEROL 2.5 MG/IPRATROPIUM 0.5 MG NEB (SCH) NEB ×2 (08:13→11:36)
--- NOTE | 2016-02-29 08:51 | MB ---
cc: VALE CAMACHO MD DATE OF CONSULTATION 02/29/2016 REASON FOR CONSULTATION V-tach. HISTORY OF PRESENT ILLNESS Ms. Ring is a 70-year-old man who does have a history of an ischemic cardiomyopathy with ICD. He was admitted at the end of last month for CHF secondary to non-compliance. He was discharged home and had been doing well. He reports this week that he had several nights with bad food, so he had several bags of Cheetos for dinner. He subsequently had progressive shortness of breath which precipitated his visit. ALLERGIES DEPAKOTE. DILANTIN. TETANUS. PAST MEDICAL HISTORY: Significant for - 1. CAD with prior infarction. 2. COPD. 3. CHF. 4. Tobacco abuse. 5. Chronic kidney disease. OUTPATIENT MEDICATIONS 1. Symbicort. 2. Prednisone. 3. Flomax. 4. Coumadin. 5. Neurontin. 6. Paxil. 7. Zyloprim. 8. Metoprolol. 9. Metformin. 10. Docusate. 11. Gemfibrozil. 12. Simvastatin. 13. Lasix. 14. Imdur. 15. Potassium. FAMILY HISTORY Noncontributory. REVIEW OF SYSTEMS Except as mentioned in the HPI, all 12 systems are negative. PHYSICAL EXAMINATION Vital Signs; 98.1, 63, 18, 100/57. General: He is a well-appearing man who is in no apparent distress. Neck: Free from JVD. Lungs: Bilaterally clear auscultation. Cardiovascular Examination: We have a normal S1 and S2. No rubs or gallops are appreciated. Abdomen: Soft. Extremities: Free from edema. EKG There does appear to be a wide complex tachycardia. It is not clear if this is paced or not at this point. IMPRESSIONS V-tach - The patient certainly has a history of an ischemic cardiomyopathy with an ICD. He is on metoprolol and I would continue the same. No further evaluation is indicated at this time. Acute on chronic systolic heart failure - This is clearly secondary to noncompliance. I am going to switch the patient to p.o. and it is reasonable for him to be discharged today as he is clearly back to baseline. Ischemic cardiomyopathy - As above. The patient is on beta-edouard. Disposition - Would like to get the patient back to his facility today. Karishma Juarez/SSB /8:18 AM 8:40 AM
[2016-02-29] MEDS: ALLOPURINOL 100 MG TAB PO SCH (08:54)
[2016-02-29] MEDS: METOPROLOL TARTRATE 25 MG TAB PO SCH (08:54)
[2016-02-29] MEDS: ISOSORBIDE DINITRATE 10 MG TAB PO SCH (08:54)
[2016-02-29] MEDS: GABAPENTIN 300 MG CAP PO SCH ×2 (08:54→12:22)
[2016-02-29] MEDS: PARoxetine HCL 20 MG TAB PO SCH (08:55)
[2016-02-29] MEDS: SODIUM CHLORIDE 0.9% FLUSH 5 ML FLUSH FLUSH SCH (08:56)
[2016-02-29] MEDS: BUDESONIDE-FORMOTEROL 160/4.5 MCG INHALER INH SCH (08:56)
[2016-02-29] MEDS ORDERED: FUROSEMIDE 40 MG TAB PO SCH (09:00)
--- NOTE | 2016-02-29 09:28 | HHI.PR ---
Subjective Remarks Follow up for systolic CHF exacerbated by too much salt intake. Mr. Ring is currently doing well. No acute concerns. Denies any chest pain, SOB, fever, chills. Objective Vitals Vital Signs Date Time Temp Pulse Resp B/P Pulse Ox O2 Delivery O2 Flow Rate FiO2 02/29/16 08:13 95 Nasal Cannula 2.00 02/29/16 04:00 98.1 63 18 100/57 95 02/29/16 01:40 20 02/29/16 00:15 98.5 81 20 102/60 93 02/28/16 20:00 99.0 84 18 108/61 94 02/28/16 20:00 Nasal Cannula 2.00 02/28/16 20:00 89 02/28/16 19:37 94 Nasal Cannula 2.00 02/28/16 16:00 98.8 73 16 98/61 94 02/28/16 12:00 98.3 64 16 102/58 94 02/28/16 11:32 93 Nasal Cannula 2.00 02/28/16 10:00 63 I/O 02/28/16 02/28/16 02/28/16 02/29/16 02/29/16 02/29/16 07:00 15:00 23:00 07:00 15:00 23:00 Intake Total 400 ml 612 ml 320 ml 590 ml Output Total 2300 ml 1370 ml 900 ml 450 ml Balance -1900 ml -758 ml -580 ml 140 ml Intake Oral 250 ml 580 ml 320 ml 240 ml IV Total 150 ml 32 ml 0 ml 350 ml Output Urine Total 2300 ml 1370 ml 900 ml 450 ml # Bowel Movements 0 0 Result Diagram: 02/29/1644 02/29/1644 Imaging Last Impressions Chest X-Ray 02/27/162030 Signed Impressions: Service Date/Time: Saturday, February 27, 2016 20:57 - CONCLUSION: Findings consistent with cardiac decompensation CHF Hakan Chilel MD Objective Remarks GENERAL: Alert, NAD. SKIN: Warm and dry. HEAD: Normocephalic. EYES: No scleral icterus. No injection or drainage. NECK: Supple, trachea midline. No JVD or lymphadenopathy. CARDIOVASCULAR: Regular rate and rhythm without murmurs, gallops, or rubs. RESPIRATORY: Breath sounds equal bilaterally. No accessory muscle use. GASTROINTESTINAL: Abdomen soft, non-tender, nondistended. MUSCULOSKELETAL: No cyanosis, or edema. BACK: Nontender without obvious deformity. No CVA tenderness. Procedures None. A/P Problem List: (1) CHF (congestive heart failure) ICD Code: I50.9 Status: Acute (2) COPD (chronic obstructive pulmonary disease) ICD Code: J44.9 Status: Chronic (3) Acute hypercapnic respiratory failure ICD Code: J96.02 Status: Acute (4) Lactic acidosis ICD Code: E87.2 Status: Acute (5) KATE (acute kidney injury) ICD Code: N17.9 Status: Acute (6) Tobacco abuse ICD Code: Z72.0 Status: Acute (7) DNR (do not resuscitate) ICD Code: Z66 Status: Acute Assessment and Plan 70-year-old male with a past medical history significant for COPD, CAD, CHF, AICD, status post CABG and diabetes mellitus presented to the emergency department with acute respiratory failure. 1. Acute respiratory failure: Patient has been successfully weaned off BiPAP and is now stable on 2 L nasal cannula. Patient is DNR/DNI. walk test ordered and pending. 2. CHF: Acute on chronic. Echo 02/09/16 with EF of 4045%. BNP 1587. Continue Lasix 40 mg PO once day on discharge. Will keep additional lasix 20mg Qday PRN if weight changes more than 3 lbs. 3. COPD: Continue home medications. Patient's respiratory symptoms were likely due to CHF exacerbation not from infectious etiology. 4. Lactic acidosis: Resolved. 5.5 on admission now 1.7. Likely secondary to acute respiratory failure not sepsis. Patient received empiric abx with Ceftriaxone and Azithromycin. Will continue azithromycin 250mg Qday X 4 days. 5. Acute Kidney injury: Creatinine 1.78 --> 1.3, 1.4. Expect creatinine to improve once we reduce Lasix dosage. Will repeat BMP in one week. 6. Diabetes mellitus: Sliding scale insulin with Accu-Cheks Discussed with Manager Php who cleared patient for discharge. DNR. On warfarin, INR 2.6. Kimberly Edgar DO Feb 29, 2016 9:27 am
[2016-02-29] MEDS ORDERED: FURO1TAB62 PO (09:38)
[2016-02-29] MEDS ORDERED: AZIT250T3 PO (09:38)
[2016-02-29] MEDS ORDERED: OXYGENTANK NAS.CANULA (09:43)
[2016-02-29 12:00] VITALS: BP 119/56; PULSE 42; RESP 22; TEMP 97.8; O2SAT 91
[2016-08-08] MEDS ORDERED: COLA100C PO (13:33)
[2016-08-08] MEDS ORDERED: ISOS60TA PO (13:33)
== END 2016-02-29 12:31 | DRG 291 ==
LOC: NEPC 20:24 → NEDA 22:41 → HIME 02-28 03:22 → N04A 02-28 10:45
PROVIDERS: ADMIT Hospitalist; ATTEND Hospitalist
PROC: 5A09357 Assistance with Respiratory Ventilation, Less than 24 Consecutive Hours, Continuous Positive Airway Pressure (ICD-10-PCS; principal; 2016-02-27)
DX: I13.0 Hypertensive heart and chronic kidney disease with heart failure and stage 1 through stage 4 chronic kidney disease, or unspecified chronic kidney disease (principal); J96.21 Acute and chronic respiratory failure with hypoxia; J96.22 Acute and chronic respiratory failure with hypercapnia; I50.23 Acute on chronic systolic (congestive) heart failure; J18.9 Pneumonia, unspecified organism; N17.9 Acute kidney failure, unspecified; I47.2 Ventricular tachycardia; E87.2 Acidosis; N18.3 Chronic kidney disease, stage 3 (moderate); J44.1 Chronic obstructive pulmonary disease with (acute) exacerbation; J44.0 Chronic obstructive pulmonary disease with (acute) lower respiratory infection; E11.22 Type 2 diabetes mellitus with diabetic chronic kidney disease; I48.91 Unspecified atrial fibrillation; E86.0 Dehydration; M19.90 Unspecified osteoarthritis, unspecified site; F60.2 Antisocial personality disorder; I25.2 Old myocardial infarction; I25.10 Atherosclerotic heart disease of native coronary artery without angina pectoris; K21.9 Gastro-esophageal reflux disease without esophagitis; I44.7 Left bundle-branch block, unspecified; I25.5 Ischemic cardiomyopathy; G62.9 Polyneuropathy, unspecified; E78.5 Hyperlipidemia, unspecified; F32.9 Major depressive disorder, single episode, unspecified; F41.9 Anxiety disorder, unspecified; F17.210 Nicotine dependence, cigarettes, uncomplicated; Z66 Do not resuscitate; Z79.01 Long term (current) use of anticoagulants; Z79.84 Long term (current) use of oral hypoglycemic drugs; Z88.7 Allergy status to serum and vaccine; Z88.8 Allergy status to other drugs, medicaments and biological substances; Z95.1 Presence of aortocoronary bypass graft; Z95.810 Presence of automatic (implantable) cardiac defibrillator; Z96.641 Presence of right artificial hip joint; Z91.19 Patient's noncompliance with other medical treatment and regimen
CPT/HCPCS: 36600; 51702; 71010; 80048; 80053; 81001; 82550; 82805; 82948; 83605; 83735; 83880; 84100; 84484; 85025; 85610; 85730; 87040; 93005; 94002; 94620; 94640; 94664; J0456; J0692; J0696; J1815; J1940; J7050

== ENCOUNTER 2016-08-19 11:34 | Observation (INO) | payer MEDICARE, MEDICAID ==
[~2016-08-19] VITALS: Ht 182.9 cm; Wt 94.0 kg
[2016-08-19] VITALS (7 sets, daily range): BP systolic 113–118; BP diastolic 67–75; PULSE 60–65; RESP 18–20; TEMP 97.2–97.9; O2SAT 93–99
[~2016-08-19 11:34] MED LIST changes: -ALLO100 PO; +COLA100C PO; -COLA100C3 PO; -ISOS30TA15 PO; +ISOS60TA PO; +METF500T PO; -METO-309 PO; +METO25TA3 PO; +OXYGENTANK NAS.CANULA; -ZOCO80TA PO
--- NOTE | 2016-08-19 12:07 | PD ---
HPI Chief Complaint: Respiratory Distress Time Seen by Provider: 12:03 Travel History International Travel<30 days: No Contact w/Intl Traveler<30days: No Traveled to known affect area: No History of Present Illness HPI 70-year-old male that presents to the ED for evaluation of shortness of breath with exertion. Patient has had this for the past 2-3 weeks. Patient lives at the assisted living facility and his been noted to whenever he exerts himself he gets some chest discomfort as well as shortness of breath. Has a history chronic bypass. He has a history of COPD and CHF. He states that he is compliant with his medications and takes Coumadin. Per patient he the fibular went off about a week ago. He states that the chest pain feels like a pressure. Per patient he continues to smoke and per patient he quit "5 days ago ". He denies any abdominal discomfort but per paramedics she was being treated for a UTI with pain in his left flank that he complained of. Patient states that his pain at this time is 2 out of 10. Per patient when he sits or lays he has no symptoms. Patient is supposed to have an appointment with his doctor soon but he stated that he couldn't wait anymore because of the symptoms and inability to ambulate without getting short of breath which is what made him come here. PFSH Past Medical History Hx Anticoagulant Therapy: Yes (COUMADIN) Arthritis: Yes Asthma: No Autoimmune Disease: No Anxiety: Yes Depression: Yes Heart Rhythm Problems: Yes Cancer: No Cardiac Catheterization: Yes Cardiovascular Problems: Yes High Cholesterol: Yes Chemotherapy: No Chest Pain: No Congestive Heart Failure: No COPD: No Cerebrovascular Accident: No Coronary Artery Disease: Yes Diabetes: Yes Patient Takes Glucophage: Yes Diminished Hearing: No Endocrine: No Gastrointestinal Disorders: Yes (GERD) Genitourinary: No Headaches: Yes Hiatal Hernia: No Hypertension: Yes Immune Disorder: No Implanted Vascular Access Dvce: Yes Kidney Stones: No Musculoskeletal: Yes (OA, HX OF R TOTAL HIP) Neurologic: Yes (SHORT TERM MEMORY LOSS, HX OF SEIZURES) Psychiatric: Yes (COGNITIVE MEMORY LOSS, HX OF ANTISOCIAL PERSONALITY DISORDER) Reproductive: No Respiratory: Yes Immunizations Current: No Myocardial Infarction: Yes Radiation Therapy: No Renal Failure: No Seizures: Yes Sickle Cell Disease: No Sleep Apnea: No Thyroid Disease: No Tetanus Vaccination: Unknown Influenza Vaccination: No ?: Not Past Surgical History Abdominal Surgery: No AICD: Yes ([employer]) Cardiac Surgery: Yes (3 VESSEL BYPASS , AICD IMPLANTED 2009) Coronary Artery Bypass Graft: Yes (3 VESSELS) Ear Surgery: No Endocrine Surgery: No Eye Surgery: No Genitourinary Surgery: Yes (PROSTATE) Gynecologic Surgery: No Joint Replacement: No Oral Surgery: Yes (MED INDUCED SEIZURES) Pacemaker: Yes Thoracic Surgery: No Other Surgery: Yes Social History Alcohol Use: No Tobacco Use: No ("QUIT 4 DAYS AGO") Substance Use: No Allergies-Medications (Allergen,Severity, Reaction): Coded Allergies: Depakote (Verified Allergy, Severe, SEIZURES, 08/08/16) "doesn't control seizures" Dilantin (Verified Allergy, Severe, SEIZURES, 08/08/16) "doesn't control seizures" Tetanus Toxoid (Verified Allergy, Severe, SWELLING, 08/08/16) MAJOR LOCAL SWELLING *MDRO Multi-Drug Resistant Organism (Verified Allergy, Unknown, 08/08/16) Klebsiella pneumoniae ESBL + 08/2012 Reported Meds & Prescriptions Reported Meds & Active Scripts Active Oxygen tank (Oxygen) 1 Ea Tank 2 Liter AJ.[email or web address] CONTINUOUS Oxygen Concentrator Portable Gaseous 2 L/min via Nasal Cannula Continuous For 99 months Prednisone 20 Mg Tab 20 Mg PO DAILY Symbicort Inh (Budesonide/Formoterol Fumarate) 160-4.5 Mcg/Act Aero 1 Puff INH Q12HR Lasix (Furosemide) 40 Mg Tab 40 Mg PO DAILY 30 Days Reported Colace (Docusate Sodium) 100 Mg Capsule 100 Mg PO BID Isosorbide Mononitrate ER (Isosorbide Mononitrate) 60 Mg Tab 60 Mg PO DAILY Metoprolol Tartrate 25 Mg Tab 25 Mg PO BID Metformin (Metformin HCl) 500 Mg Tab 500 Mg PO BIDPC With meals Flomax (Tamsulosin HCl) 0.4 Mg Cap 0.4 Mg PO HS Coumadin (Warfarin) 5 Mg Tab 5 Mg PO DAILY, SAT & SUN Coumadin (Warfarin) 4 Mg Tab 4 Mg PO DAILY, MON-FRI Neurontin (Gabapentin) 600 Mg Tab 1,200 Mg PO TID Lopid (Gemfibrozil) 600 Mg Tab 600 Mg PO BIDAC Take 30 minutes prior to breakfast and dinner Potassium Chloride ER (Potassium Chloride) 20 Meq Tab 20 Meq PO DAILY Paxil (Paroxetine HCl) 10 Mg Tab 10 Mg PO DAILY Review of Systems Except as stated in HPI: all other systems reviewed are Neg Physical Exam Narrative GENERAL: SKIN: Warm and dry. HEAD: Atraumatic. Normocephalic. EYES: Pupils equal and round. No scleral icterus. No injection or drainage. ENT: No nasal bleeding or discharge. Mucous membranes pink and moist. Tongue is midline. No uvula deviation. NECK: Trachea midline. No JVD. CARDIOVASCULAR: Regular rate and rhythm. No murmurs, S3, S4. RESPIRATORY: No accessory muscle use. Clear to auscultation. Breath sounds equal bilaterally. GASTROINTESTINAL: Abdomen soft, non-tender, nondistended. Hepatic and splenic margins not palpable. MUSCULOSKELETAL: Extremities without clubbing, cyanosis, or edema. No obvious deformities. Full range of motion of the upper and lower extremities bilaterally. 2+ pulses bilaterally. NEUROLOGICAL: Awake and alert. No obvious cranial nerve deficits. Motor grossly within normal limits. Five out of 5 muscle strength in the arms and legs. Normal speech. PSYCHIATRIC: Appropriate mood and affect; insight and judgment normal. Data Data Last Documented VS Vital Signs Date Time Temp Pulse Resp B/P Pulse Ox O2 Delivery O2 Flow Rate FiO2 08/19/16 11:52 66 18 100 Room Air 08/19/16 11:52 97.9 117/73 Orders Electrocardiogram (08/19/16 11:43) Complete Blood Count With Diff (08/19/16 11:43) Comprehensive Metabolic Panel (08/19/16 11:43) Ckmb (Isoenzyme) Profile (08/19/16 11:43) Troponin I (08/19/16 11:43) B-Type Natriuretic Peptide (08/19/16 11:43) Prothrombin Time / Inr (Pt) (08/19/16 11:43) Act Partial Throm Time (Ptt) (08/19/16 11:43) Urinalysis - C+S If Indicated (08/19/16 11:43) Magnesium (Mg) (08/19/16 11:43) Chest, Single Ap (08/19/16 11:43) Iv Access Insert/Monitor (08/19/16 11:43) Ecg Monitoring (08/19/16 11:43) Oximetry (08/19/16 11:43) Furosemide Inj (Lasix Inj) (08/19/16 13:00) Admit Order (Ed Use Only) (08/19/16 13:39) Labs Laboratory Tests Test 08/19/16 11:58 White Blood Count 6.0 TH/MM3 Red Blood Count 3.97 MIL/MM3 Hemoglobin 12.8 GM/DL Hematocrit 37.8 % Mean Corpuscular Volume 95.3 FL Mean Corpuscular Hemoglobin 32.3 PG Mean Corpuscular Hemoglobin 33.9 % Concent Red Cell Distribution Width 15.0 % Platelet Count 199 TH/MM3 Mean Platelet Volume 8.9 FL Neutrophils (%) (Auto) 70.2 % Lymphocytes (%) (Auto) 17.2 % Monocytes (%) (Auto) 10.4 % Eosinophils (%) (Auto) 1.7 % Basophils (%) (Auto) 0.5 % Neutrophils # (Auto) 4.2 TH/MM3 Lymphocytes # (Auto) 1.0 TH/MM3 Monocytes # (Auto) 0.6 TH/MM3 Eosinophils # (Auto) 0.1 TH/MM3 Basophils # (Auto) 0.0 TH/MM3 CBC Comment DIFF FINAL Differential Comment Prothrombin Time 23.1 SEC Prothromb Time International 2.0 RATIO Ratio Activated Partial 40.4 SEC Thromboplast Time Sodium Level 134 MEQ/L Potassium Level 4.2 MEQ/L Chloride Level 100 MEQ/L Carbon Dioxide Level 29.4 MEQ/L Anion Gap 5 MEQ/L Blood Urea Nitrogen 15 MG/DL Creatinine 1.11 MG/DL Estimat Glomerular Filtration 66 ML/MIN Rate Random Glucose 94 MG/DL Calcium Level 9.1 MG/DL Magnesium Level 2.0 MG/DL Total Bilirubin 0.9 MG/DL Aspartate Amino Transf 15 U/L (AST/SGOT) Alanine Aminotransferase 21 U/L (ALT/SGPT) Alkaline Phosphatase 57 U/L Total Creatine Kinase 67 U/L Troponin I LESS THAN 0.02 NG/ML B-Type Natriuretic Peptide 2078 PG/ML Total Protein 6.7 GM/DL Albumin 3.4 GM/DL MDM Medical Decision Making Medical Screen Exam Complete: Yes Emergency Medical Condition: Yes Medical Record Reviewed: Yes Interpretation(s) Last Impressions Chest X-Ray 08/19/16 1143 Signed Impressions: Service Date/Time: Friday, August 19, 2016 11:47 - CONCLUSION: Mild congestive failure with minimal parenchymal changes right base. Pacemaker. Michael Xie MD FACR CBC & BMP Diagram 08/19/16 11:58 troponin negative CKMB negative BNP in the 1999s Coags with INR of 2 Differential Diagnosis CHF exacerbation versus ACS versus kidney injury versus COPD exacerbation versus COPD versus UTI versus sepsis Narrative Course 70-year-old male that presents to the ED for evaluation of shortness of breath. Patient was properly examined and was found to have signs and symptoms concerning for cardiac versus COPD. On exam patient doesn't really have much wheezing. He is asymptomatic as long as he does not ambulate. He chronically uses oxygen. Labs and imaging showed what appears to be CHF. This time patient is not symptomatic malaise he ambulate. With ambulation patient's symptoms are reproduced and his O2 does come down. At this time recommend admission for CHF exacerbation. Patient in agreement with this plan. [employer] the common evaluated the patient and states that patient only had one episode of DVT that required 1 shock which she is sexually terminated the rhythm on 14 August. Otherwise no other arrhythmias or abnormalities noted on the pacemaker. HEPAS was paged and Dr Diaz agrees with plan. Diagnosis Primary Impression: CHF exacerbation Qualified Code: I50.9 - Acute on chronic congestive heart failure, unspecified congestive heart failure type Admitting Information Admitting Physician Requests: Santo Perez Aug 19, 2016 12:07
[2016-08-19 12:20] LABS: AUTOMATED NEUTROPHIL # 4.2 TH/MM3 (1.8-7.7); BASOPHIL % 0.5 % (0.0-2.0); EOSINOPHIL # 0.1 TH/MM3 (0-0.4); EOSINOPHIL % 1.7 % (0.0-4.0); HEMATOCRIT 37.8 % (39.0-51.0); HEMO FLAGS DIFF FINAL; LYMPH % 17.2 % (9.0-44.0); MEAN CELL VOLUME 95.3 FL (80.0-100.0); MEAN CORPUSCULAR HEMOGLOBIN 32.3 PG (27.0-34.0); MEAN CORPUSCULAR HGB CONC 33.9 % (32.0-36.0); MONO % 10.4 % (0.0-8.0); NEUT % 70.2 % (16.0-70.0); PLATELET COUNT 199 TH/MM3 (150-450); RED BLOOD COUNT 3.97 MIL/MM3 (4.50-5.90)
--- NOTE | 2016-08-19 12:23 | RADRPT ---
EXAM DATE/TIME: 08/19/2016 11:47 [facility] COMPARISON: CHEST SINGLE AP, February 27, 2016, 20:57. INDICATIONS : Chest pain and shortness of breath. MEDICAL HISTORY : Hypertension. Myocardial infarction. Chronic obstructive pulmonary disease. SURGICAL HISTORY : CABG. Pacemaker. ENCOUNTER: Initial ACUITY: 1 day PAIN SCORE: 7/10 LOCATION: Bilateral chest FINDINGS: Pacer is implanted on the left. The heart is enlarged with mild interstitial edema and minimal paren chymal changes in the right base. The portion of the bony skeleton visualized is unremarkable. CONCLUSION: Mild congestive failure with minimal parenchymal changes right base. Pacemaker. Michael Xie MD FACR on August 19, 2016 at 12:19 Board Certified Radiologist. This report was verified electronically.
[2016-08-19 12:34] LABS: APTT (PATIENT) 40.4 SEC (24.3-30.1); PROTHROMBIN TIME - PATIENT 23.1 SEC (9.8-11.6)
[2016-08-19 12:39] LABS: ANION GAP 5 MEQ/L (5-15); AST (GOT) 15 U/L (15-37); BICARBONATE 29.4 MEQ/L (21.0-32.0); BLOOD UREA NITROGEN 15 MG/DL (7-18); CHLORIDE 100 MEQ/L (98-107); GLOMERULAR FILTRATION RATE 66 ML/MIN (>89); POTASSIUM 4.2 MEQ/L (3.5-5.1); SODIUM (NA) 134 MEQ/L (136-145)
[2016-08-19 12:40] LABS: ALT (GPT) 21 U/L (12-78)
[2016-08-19 12:44] LABS: ALKALINE PHOSPHATASE 57 U/L (45-117); TOTAL BILIRUBIN ADULT 0.9 MG/DL (0.2-1.0)
[2016-08-19 12:50] LABS: CREATINE KINASE 67 U/L (39-308)
[2016-08-19] MEDS ORDERED: FUROSEMIDE 40 MG/4 ML VIAL IV PUSH ONE (13:00)
[2016-08-19 14:08] LABS: BLOOD, URINE NEG (NEG); GLUCOSE,URINE NEG (NEG); KETONE, URINE NEG (NEG); NITRITE,URINE NEG (NEG); PH, URINE 6.5 (5.0-8.5); URINE COLOR LIGHT-YELLOW (YELLW/STRAW)
[2016-08-19 14:17] LABS: COMMENT (UR) CULT NOT INDICATED; CULTURE IF INDICATED CULT NOT INDICATED
--- NOTE | 2016-08-19 14:23 | EKG ---
Date Performed: 08/19/2016 Time Performed: 12:10:53 PTAGE: 70 years EKG: ELECTRONIC ATRIAL PACEMAKER ELECTRONIC VENTRICULAR PACEMAKER ABNORMAL RHYTHM ECG COMPARED T O PRIOR ELECTROCARDIOGRAM, Dual-chamber pacemaker is present. PREVIOUS TRACING : 02/27/2016 20.29 DOCTOR: Edy Xavier Interpretating Date/Time 08/19/2016 14:22:23
[2016-08-19] MEDS ORDERED: WARFARIN SOD 4 MG TAB PO SCH (16:00)
[2016-08-19] MEDS: GEMFIBROZIL 600 MG TAB PO SCH (16:39)
[2016-08-19] MEDS: WARFARIN SOD 5 MG TAB PO SCH (16:39)
--- NOTE | 2016-08-19 17:49 | HHI.HP ---
[facility] Service [facility] Primary Care Physician Non-Staff Admission Diagnosis CHF exacerbation, dyspnea with exertion Diagnoses: Chief Complaint: Shortness Of breath and generalized weakness Travel History International Travel<30 Days: No Contact w/Intl Traveler <30 Da: No Traveled to Known Affected Are: No History of Present Illness Patient is a very pleasant 70-year-old female who is a resident of [facility]-living [facility], history of ischemic cardiomyopathy status post AICD, on chronic nasal cannula 2-3 L/m who states that he is still pretty much independent occasionally uses a walker for long walks. Was brought into the emergency room complaining of shortness of breath which patient states started about a week ago associated with generalized weakness. Patient weighs himself and noted that he gained 3 pounds. Baseline two-pillow orthopnea. This morning with worsening shortness of breath. Denies any chest pains. Some mild leg swelling. Prompted consult to ER and was noted to be in elevated BNP and heart failure. Patient was promptly given IV Lasix with good results. Patient admitted overnight for observation. Patient denies any fever chills nausea vomiting diarrhea constipation. States about 5 days ago there was one episode of VT noted. Review of Systems Constitutional: DENIES: Diaphoretic episodes, Fatigue, Fever, Weight gain, Weight loss, Chills, Dizziness, Change in appetite, Night Sweats Endocrine: DENIES: Heat/cold intolerance, Polydipsia, Polyuria, Polyphagia Eyes: DENIES: Blurred vision, Diplopia, Eye inflammation, Eye pain, Vision loss , Photosensitivity, Double Vision Ears, nose, mouth, throat: DENIES: Tinnitus, Hearing loss, Vertigo, Nasal discharge, Oral lesions, Throat pain, Hoarseness, Ear Pain, Running Nose, Epistaxis, Sinus Pain, Toothache, Odynophagia Respiratory: COMPLAINS OF: Shortness of breath Cardiovascular: COMPLAINS OF: Dyspnea on Exertion, Lower Extremity Edema Gastrointestinal: DENIES: Abdominal pain, Black stools, Bloody stools, Constipation, Diarrhea, Nausea, Vomiting, Difficulty Swallowing, Anorexia Genitourinary: DENIES: Sexual dysfunction, Urinary frequency, Urinary incontinence, Urgency, Hematuria, Dysuria, Nocturia, Penile Discharge, Testicular Pain, Testicular Swelling Musculoskeletal: DENIES: Joint pain, Muscle aches, Stiffness, Joint Swelling, Back pain, Neck pain Integumentary: DENIES: Abnormal pigmentation, Nail changes, Pruritus, Rash Hematologic/lymphatic: DENIES: Bruising, Lymphadenopathy Immunologic/allergic: DENIES: Eczema, Urticaria Neurologic: DENIES: Abnormal gait, Headache, Localized weakness, Paresthesias, Seizures, Speech Problems, Tremor, Poor Balance Psychiatric: DENIES: Anxiety, Confusion, Mood changes, Depression, Hallucinations, Agitation, Suicidal Ideation, Homicidal Ideation, Delusions Past Family Social History Past Medical History History of hypertension History of ischemic cardiomyopathy with known ejection fraction of 20-25% status post AICD pacemaker History of chronic kidney insufficiency Past Surgical History CABG Bladder surgery Female surgery Reported Medications Metformin 500 mg twice a day metoprolol 25 mg twice a day Symbicort 160/4.5 g one puff twice a day Flomax 0.4 mg daily gabapentin 1200 mg by mouth every 8 Coumadin 4 mg Monday through Monday 5 mg Monday Lasix 40 mg daily Imdur 60 mg daily Paxil 10 mg daily Kader 20 mEq daily Colace 100 mg twice a day Lopid 600 mg twice a day Allergies: Coded Allergies: Depakote (Verified Allergy, Severe, SEIZURES, 08/08/16) "doesn't control seizures" Dilantin (Verified Allergy, Severe, SEIZURES, 08/08/16) "doesn't control seizures" Tetanus Toxoid (Verified Allergy, Severe, SWELLING, 08/08/16) MAJOR LOCAL SWELLING *MDRO Multi-Drug Resistant Organism (Verified Allergy, Unknown, 08/08/16) Klebsiella pneumoniae ESBL + 08/2012 Family History Noncontributory Social History Patient stills states smoked but quit 4 days ago No alcohol use since 45 years ago next and denies any IV drug use Physical Exam Vital Signs Vital Signs Date Time Temp Pulse Resp B/P Pulse Ox O2 Delivery O2 Flow Rate FiO2 08/19/16 15:30 60 18 115/71 93 Nasal Cannula 2 08/19/16 13:00 65 18 118/70 96 Room Air 08/19/16 11:52 66 18 100 Room Air 08/19/16 11:52 99 Room Air 08/19/16 11:52 97.9 60 18 117/73 99 Room Air 08/19/16 11:49 97.9 60 20 117/73 99 Physical Exam GENERAL: This is a well-nourished, well-developed patient, in no apparent distress. On exam able to talk in full sentences SKIN: No rashes, ecchymoses or lesions. Cool and dry. HEAD: Atraumatic. Normocephalic. No temporal or scalp tenderness. EYES: Pupils equal round and reactive. Extraocular motions intact. No scleral icterus. No injection or drainage. ENT: Nose without bleeding, purulent drainage or septal hematoma. Throat without erythema, tonsillar hypertrophy or exudate. Uvula midline. Airway patent. NECK: Trachea midline. No JVD or lymphadenopathy. Supple, nontender, no meningeal signs. CARDIOVASCULAR: Regular rate and rhythm soft 2/6 systolic murmur left sternal border RESPIRATORY: Decreased Breath sounds equal bilaterally. No wheezes, rales, or rhonchi. GASTROINTESTINAL: Abdomen soft, non-tender, nondistended. No hepato-splenomegaly , or palpable masses. No guarding. MUSCULOSKELETAL: Extremities without clubbing, cyanosis, or edema. No joint tenderness, effusion, or edema noted. No calf tenderness. Negative Homans sign bilaterally. Trace pretibial edema NEUROLOGICAL: Awake and alert. Cranial nerves II through XII intact. Motor and sensory grossly within normal limits. Five out of 5 muscle strength in all muscle groups. Normal speech. Laboratory Laboratory Tests Test 08/19/16 08/19/16 11:58 13:55 White Blood Count 6.0 Red Blood Count 3.97 Hemoglobin 12.8 Hematocrit 37.8 Mean Corpuscular Volume 95.3 Mean Corpuscular Hemoglobin 32.3 Mean Corpuscular Hemoglobin 33.9 Concent Red Cell Distribution Width 15.0 Platelet Count 199 Mean Platelet Volume 8.9 Neutrophils (%) (Auto) 70.2 Lymphocytes (%) (Auto) 17.2 Monocytes (%) (Auto) 10.4 Eosinophils (%) (Auto) 1.7 Basophils (%) (Auto) 0.5 Neutrophils # (Auto) 4.2 Lymphocytes # (Auto) 1.0 Monocytes # (Auto) 0.6 Eosinophils # (Auto) 0.1 Basophils # (Auto) 0.0 CBC Comment DIFF FINAL Differential Comment Prothrombin Time 23.1 Prothromb Time International 2.0 Ratio Activated Partial 40.4 Thromboplast Time Sodium Level 134 Potassium Level 4.2 Chloride Level 100 Carbon Dioxide Level 29.4 Anion Gap 5 Blood Urea Nitrogen 15 Creatinine 1.11 Estimat Glomerular Filtration 66 Rate Random Glucose 94 Calcium Level 9.1 Magnesium Level 2.0 Total Bilirubin 0.9 Aspartate Amino Transf 15 (AST/SGOT) Alanine Aminotransferase 21 (ALT/SGPT) Alkaline Phosphatase 57 Total Creatine Kinase 67 Troponin I LESS THAN 0.02 B-Type Natriuretic Peptide 2078 Total Protein 6.7 Albumin 3.4 Urine Color LIGHT-YELLOW Urine Turbidity CLEAR Urine pH 6.5 Urine Specific [place] 1.004 Urine Protein NEG Urine Glucose (UA) NEG Urine Ketones NEG Urine Occult Blood NEG Urine Nitrite NEG Urine Bilirubin NEG Urine Urobilinogen LESS THAN 2.0 Urine Leukocyte Esterase NEG Urine RBC LESS THAN 1 Urine WBC LESS THAN 1 Microscopic Urinalysis Comment CULT NOT INDICATED Result Diagram: 08/19/16 1158 08/19/16 1158 Imaging Last 24 hours Impressions Chest X-Ray 08/19/16 1143 Signed Impressions: Service Date/Time: Friday, August 19, 2016 11:47 - CONCLUSION: Mild congestive failure with minimal parenchymal changes right base. Pacemaker. Michael Xie MD FACR Assessment and Plan Assessment and Plan 70-year-old male with acute CHF with a background of ischemic cardiomyopathy known EF of 15-20% We'll increase Lasix to 40 mg twice a day Continue on medications home meds Will add a stool regimen lisinopril 2.5 mg daily Continue on Coumadin. History of diabetes type 2 continue on metformin History of COPD continue O2 nasal cannula. Continue on inhalers. Continue on prednisone- decrease to 10 mg po daily- maintenance dose on monitor History of BPH continue Flomax If stable tomorrow discharged back to [facility] and of dictation Discussed Condition With Patient Claudine Diaz MD Aug 19, 2016 17:49
[2016-08-19] MEDS: GABAPENTIN 400 MG CAP PO SCH (18:30)
[2016-08-19] MEDS: metFORMIN HCL 500 MG TAB PO SCH (18:30)
[2016-08-19] MEDS: LISINOPRIL 5 MG TAB PO SCH ×2 (19:30→23:56)
[2016-08-19] MEDS: METOPROLOL TARTRATE 25 MG TAB PO SCH (21:00)
[2016-08-19] MEDS ORDERED: TAMSULOSIN HCL 0.4 MG CAP PO SCH (21:00)
[2016-08-19] MEDS ORDERED: FUROSEMIDE 20 MG TAB PO SCH (21:00)
[2016-08-19] MEDS: DOCUSATE SODIUM 100 MG CAP PO SCH (23:56)
[2016-08-19] MEDS: BUDESONIDE-FORMOTEROL 160/4.5 MCG INHALER INH SCH (23:57)
[2016-08-19] MEDS: FUROSEMIDE 40 MG TAB PO SCH (23:57)
[2016-08-20 04:25] VITALS: BP 102/64; PULSE 60; RESP 20; TEMP 98.1; O2SAT 95
[2016-08-20] MEDS: GEMFIBROZIL 600 MG TAB PO SCH ×2 (06:39→16:13)
[2016-08-20 08:23] VITALS: BP 116/70; PULSE 60; RESP 20; TEMP 98; O2SAT 95
[2016-08-20] MEDS: BUDESONIDE-FORMOTEROL 160/4.5 MCG INHALER INH SCH (08:40)
[2016-08-20] MEDS: FUROSEMIDE 40 MG TAB PO SCH (08:41)
[2016-08-20] MEDS: LISINOPRIL 5 MG TAB PO SCH (08:41)
[2016-08-20] MEDS: DOCUSATE SODIUM 100 MG CAP PO SCH (08:41)
[2016-08-20] MEDS: metFORMIN HCL 500 MG TAB PO SCH (08:41)
[2016-08-20] MEDS: GABAPENTIN 400 MG CAP PO SCH ×2 (08:41→13:10)
[2016-08-20] MEDS: METOPROLOL TARTRATE 25 MG TAB PO SCH (08:42)
[2016-08-20] MEDS ORDERED: POTASSIUM CHLORIDE 20 MEQ CONTROLLED RELEASE TAB PO SCH (09:00)
[2016-08-20] MEDS ORDERED: predniSONE 20 MG TAB PO SCH (09:00)
[2016-08-20] MEDS ORDERED: PARoxetine HCL 20 MG TAB PO SCH (09:00)
[2016-08-20] MEDS ORDERED: ISOSORBIDE MONONITRATE 60 MG TAB PO SCH (09:00)
[2016-08-20 10:54] LABS: BICARBONATE 34.8 MEQ/L (21.0-32.0); POTASSIUM 3.4 MEQ/L (3.5-5.1)
[2016-08-20 11:48] VITALS: BP 120/70; PULSE 68; RESP 18; TEMP 97.9; O2SAT 96
--- NOTE | 2016-08-20 14:08 | HHI.PR ---
Subjective Remarks patient feeling better up and ambulating laying almost flat in bed Objective Vitals Vital Signs Date Time Temp Pulse Resp B/P Pulse Ox O2 Delivery O2 Flow Rate FiO2 08/20/16 11:48 97.9 68 18 120/70 96 08/20/16 09:49 Nasal Cannula 3.00 08/20/16 08:23 98.0 60 20 116/70 95 08/20/16 04:25 98.1 60 20 102/64 95 08/19/16 23:46 97.6 60 18 116/75 95 08/19/16 22:00 95 Nasal Cannula 3.00 08/19/16 19:14 97.2 60 20 113/67 96 08/19/16 15:30 60 18 115/71 93 Nasal Cannula 2 I/O 08/19/16 08/19/16 08/19/16 08/20/16 08/20/16 08/20/16 07:00 15:00 23:00 07:00 15:00 23:00 Output Total 1300 ml 1600 ml 300 ml Balance -1300 ml -1600 ml -300 ml Output Urine Total 1300 ml 1600 ml 300 ml # Voids 3 4 Result Diagram: 08/19/16 1158 08/20/16 1000 Imaging Last 72 hours Impressions Chest X-Ray 08/19/16 1143 Signed Impressions: Service Date/Time: Friday, August 19, 2016 11:47 - CONCLUSION: Mild congestive failure with minimal parenchymal changes right base. Pacemaker. Michael Xie MD FACR Objective Remarks awake and alert, nad anicteric lungs no rales or wheezes regular rhythm abdomen soft, nontender extremities no edema neuro exam- unremarkable A/P Assessment and Plan 70-year-old male with acute CHF with a background of ischemic cardiomyopathy known EF of 15-20%- improved -Lasix to 40 mg twice a day- Continue on medications home meds - added lisinopril 2.5 mg daily Continue on Coumadin 5 mg daily. INR as OP monitoring History of diabetes type 2 continue on metformin History of COPD continue O2 nasal cannula. Continue on inhalers. Continue on prednisone decrease to 10 mg daily History of BPH continue Flomax DC to [facility] today- patient agrees- does not want any skilled Diet- heart health activity as tolerated no strenuous activity New Meds- Lasix 40 mg bid Lisinopril 2.5 mg po daily KCl 20 meq po bid Prednisone 10 mg daily- taper per PO EDMOND continue home meds doses FF up with PCP in 2-3 days - Monday Claudine Diaz MD Aug 20, 2016 14:08
[2016-08-20] MEDS ORDERED: POTASSIUM CHLORIDE 20 MEQ CONTROLLED RELEASE TAB PO ONE (14:15)
[2016-08-20] MEDS ORDERED: LISI-519 PO (14:16)
[2016-08-20] MEDS ORDERED: FURO40TA PO (14:16)
[2016-08-20] MEDS ORDERED: PRED10 PO ×2 (14:17→14:40)
[2016-08-20] MEDS ORDERED: POTA20TA5 PO (14:25)
[2016-08-20] MEDS ORDERED: COUM5TAB PO (14:29)
--- NOTE | 2016-08-20 14:31 | HHI.DS ---
Discharge Summary Admission Date Aug 19, 2016 at 13:41 Discharge Date: Aug 20, 2016 Admitting Diagnosis CHF exacerbation, dyspnea with exertion (1) Acute exacerbation of CHF (congestive heart failure) ICD Code: I50.9 Diagnosis: Principal Procedures none Brief History - From Admission Patient is a very pleasant 70-year-old female who is a resident of [facility] assisted-living [facility], history of ischemic cardiomyopathy status post AICD, on chronic nasal cannula 2-3 L/m who states that he is still pretty much independent occasionally uses a walker for long walks. Was brought into the emergency room complaining of shortness of breath which patient states started about a week ago associated with generalized weakness. Patient weighs himself and noted that he gained 3 pounds. Baseline two-pillow orthopnea. This morning with worsening shortness of breath. Denies any chest pains. Some mild leg swelling. Prompted consult to ER and was noted to be in elevated BNP and heart failure. Patient was promptly given IV Lasix with good results. Patient admitted overnight for observation. Patient denies any fever chills nausea vomiting diarrhea constipation. States about 5 days ago there was one episode of VT noted. CBC/BMP: 08/19/16 1158 08/20/16 1000 Significant Findings Laboratory Tests Test 08/19/16 08/20/16 11:58 10:00 Red Blood Count 3.97 MIL/MM3 (4.50-5.90) Hemoglobin 12.8 GM/DL (13.0-17.0) Hematocrit 37.8 % (39.0-51.0) Neutrophils (%) (Auto) 70.2 % (16.0-70.0) Monocytes (%) (Auto) 10.4 % (0.0-8.0) Prothrombin Time 23.1 SEC (9.8-11.6) Activated Partial 40.4 SEC Thromboplast Time (24.3-30.1) Sodium Level 134 MEQ/L (136-145) Estimat Glomerular Filtration 66 ML/MIN (>89) 63 ML/MIN (>89) Rate Troponin I LESS THAN 0.02 NG/ML (0.02-0.05) B-Type Natriuretic Peptide 2078 PG/ML (0-100) Potassium Level 3.4 MEQ/L (3.5-5.1) Carbon Dioxide Level 34.8 MEQ/L (21.0-32.0) Anion Gap 4 MEQ/L (5-15) Random Glucose 148 MG/DL (74-106) Imaging Last 72 hours Impressions Chest X-Ray 08/19/16 1143 Signed Impressions: Service Date/Time: Friday, August 19, 2016 11:47 - CONCLUSION: Mild congestive failure with minimal parenchymal changes right base. Pacemaker. Michael Xie MD FACR PE at Discharge awake and alert, nad, good sats anicteric lungs no rales or wheezes regular rhythm abdomen soft, nontender extremities no edema neuro exam- unremarkable Pt update on day of discharge good sats no shortness of breath or chest pains Hospital Course 70-year-old male with acute CHF with a background of ischemic cardiomyopathy known EF of 15-20%- improved -Lasix to 40 mg twice a day- Continue on medications home meds - added lisinopril 2.5 mg daily Continue on Coumadin 5 mg daily. INR as OP monitoring History of diabetes type 2 continue on metformin History of COPD continue O2 nasal cannula. Continue on inhalers. Continue on prednisone decrease to 10 mg daily History of BPH continue Flomax DC to INTERMEDIATE today- patient agrees- does not want any skilled Diet- heart health activity as tolerated no strenuous activity New Meds- Lasix 40 mg bid Lisinopril 2.5 mg po daily KCl 20 meq po bid Prednisone 10 mg daily- taper per INTERMEDIATE continue home meds doses FF up with PCP in 2-3 days - Monday Pt Condition on Discharge: Stable Discharge Disposition: ACLF/PO Discharge Time: <= 30 minutes Discharge Instructions DIET: Follow Instructions for: Heart Healthy Diet Speech Therapy-Diet Recommends: Regular Activities you can perform: Weight Bearing as Andre Activities to Avoid: Prolonged Standing, Strenuous Activity Follow up Referrals: PCP Follow-up - 08/22/16 with PO director New Orders: BASIC METABOLIC PROF - 08/22/16 PT/INR - 08/22/16 New Medications: Prednisone (Prednisone) 10 Mg Tab 10 MG PO DAILY COPD Days 7 Ref 0 TAB Furosemide (Furosemide) 40 Mg Tab 40 MG PO BID@09,18 CMP Days 30 TAB Lisinopril (Lisinopril) 5 Mg Tab 2.5 MG PO DAILY CMP Days 30 TAB Potassium Chloride Microencaps (Potassium Chloride Microencaps) 20 Meq Tab 20 MEQ PO BID CMP Days 30 TAB Warfarin (Coumadin) 5 Mg Tab 5 MG PO DAILY@1600 CMP Days 30 TAB Continued Medications: Budesonide-Formoterol Inh (Symbicort Inh) 160-4.5 Mcg/Act Aero 1 PUFF INH Q12HR #1 INHALER Docusate Sodium (Colace) 100 Mg Capsule 100 MG PO BID Gabapentin (Neurontin) 600 Mg Tab 1200 MG PO TID #60 Ref 0 TAB Gemfibrozil (Lopid) 600 Mg Tab 600 MG PO BIDAC Take 30 minutes prior to breakfast and dinner #60 Ref 0 TAB Isosorbide Mononitrate ER (Isosorbide Mononitrate ER) 60 Mg Tab 60 MG PO DAILY Prevent Chest Pain #30 Ref 0 TAB Metformin (Metformin) 500 Mg Tab 500 MG PO BIDPC With meals Blood Sugar Management #60 Ref 0 TAB Metoprolol Tartrate (Metoprolol Tartrate) 25 Mg Tab 25 MG PO BID #60 Ref 0 TAB Paroxetine (Paxil) 10 Mg Tab 10 MG PO DAILY #30 Ref 0 TAB Tamsulosin (Flomax) 0.4 Mg Cap 0.4 MG PO HS Manage Prostate Problems #30 Ref 0 CAP Discontinued Medications: Potassium Chloride ER (Potassium Chloride ER) 20 Meq Tab 20 MEQ PO DAILY Electrolyte Replacement #30 Ref 0 TAB Prednisone (Prednisone) 20 Mg Tab 20 MG PO DAILY #2 TAB Warfarin (Coumadin) 4 Mg Tab 4 MG PO DAILY, MON-FRI Prevent Blood Clot #30 Ref 0 TAB Warfarin (Coumadin) 5 Mg Tab 5 MG PO DAILY, SAT & SUN Blood Clot Prevention #30 Ref 0 TAB Claudine Diaz MD Aug 20, 2016 14:31
[2016-08-20] MEDS: WARFARIN SOD 5 MG TAB PO SCH (16:13)
[2016-08-21] MEDS ORDERED: predniSONE 10 MG TAB PO SCH (09:00)
== END 2016-08-20 18:29 ==
LOC: NEPC 11:34 → NEDA 13:41 → NEPGCP 16:10
PROVIDERS: ADMIT Internal Medicine; ATTEND Internal Medicine
DX: I13.0 Hypertensive heart and chronic kidney disease with heart failure and stage 1 through stage 4 chronic kidney disease, or unspecified chronic kidney disease (principal); E11.22 Type 2 diabetes mellitus with diabetic chronic kidney disease; I25.5 Ischemic cardiomyopathy; N18.9 Chronic kidney disease, unspecified; I50.9 Heart failure, unspecified; R53.1 Weakness; R01.1 Cardiac murmur, unspecified; R91.8 Other nonspecific abnormal finding of lung field; N39.0 Urinary tract infection, site not specified; R94.31 Abnormal electrocardiogram [ECG] [EKG]; R60.0 Localized edema; R06.00 Dyspnea, unspecified; I25.10 Atherosclerotic heart disease of native coronary artery without angina pectoris; I25.2 Old myocardial infarction; E78.00 Pure hypercholesterolemia, unspecified; F41.9 Anxiety disorder, unspecified; F32.9 Major depressive disorder, single episode, unspecified; N40.0 Benign prostatic hyperplasia without lower urinary tract symptoms; M19.90 Unspecified osteoarthritis, unspecified site; J44.9 Chronic obstructive pulmonary disease, unspecified; R06.02 Shortness of breath; K21.9 Gastro-esophageal reflux disease without esophagitis; R41.3 Other amnesia; F60.2 Antisocial personality disorder; Z87.891 Personal history of nicotine dependence; Z95.810 Presence of automatic (implantable) cardiac defibrillator; Z95.1 Presence of aortocoronary bypass graft; Z79.899 Other long term (current) drug therapy; Z79.84 Long term (current) use of oral hypoglycemic drugs; Z79.01 Long term (current) use of anticoagulants
CPT/HCPCS: 71010; 80048; 80053; 81001; 82550; 83735; 83880; 84484; 85025; 85610; 85730; 93005; 96374; 99285; G0378; J1940; J7512

== ENCOUNTER 2017-02-24 06:17 | Inpatient (IN) | payer MEDICARE, MEDICAID ==
[~2017-02-24] VITALS: Ht 182.9 cm; Wt 87.0 kg
[2017-02-24] VITALS (18 sets, daily range): BP systolic 116–202; BP diastolic 58–99; PULSE 71–107; RESP 17–30; TEMP 97.5–99; O2SAT 88–99
[~2017-02-24 06:17] MED LIST changes: -COLA100C PO; +COLA100C5 PO; -COUM4TAB PO; -FURO1TAB60 PO; +FURO40TA PO; +LISI-519 PO; -PAXI10TA2 PO; +PAXI10TA8 PO; -POTA-163 PO; +POTA20TA5 PO; +PRED10 PO; -PRED20 PO
[2017-02-24] MEDS ORDERED: SODIUM CHLORIDE 0.9% FLUSH 10 ML FLUSH IVF PRN (06:30)
[2017-02-24] MEDS ORDERED: methylPREDNISolone SOD SUCC 125 MG/2 ML VIAL IV PUSH ONE (06:30)
--- NOTE | 2017-02-24 06:49 | PD ---
HPI Chief Complaint: Respiratory Distress Time Seen by Provider: 06:25 Travel History International Travel<30 days: No Contact w/Intl Traveler<30days: No Traveled to known affect area: No History of Present Illness HPI 71-year-old male with history of CHF, COPD on home O2, brought in by EMS from home for evaluation of 2 days of worsening shortness of breath. EMS noted severe respiratory distress with poor air movement bilaterally with wheezes bilaterally with an O2 saturation in the 80s on room air. They administered 2 albuterol nebulized treatments as well as 125 mg of IV Solu-Medrol en route to the hospital. Upon arrival the patient is in moderate respiratory distress, speaking a few words at a time with very poor air movement bilaterally. He notes only minimal improvement with the treatment he had received by EMS. He states his symptoms have been progressively worsening over the last 2 days with shortness of breath at rest, worse with exertion. He denies chest pain. He has had a nonproductive cough. He has not noted any fevers or chills. He is also had some worsening bilateral lower extremity edema. He states his gum remover is Dr. Bolanos. [facility] Past Medical History Hx Anticoagulant Therapy: Yes (COUMADIN) Arthritis: Yes Asthma: No Autoimmune Disease: No Anxiety: Yes Depression: Yes Heart Rhythm Problems: Yes Cancer: No Cardiac Catheterization: Yes Cardiovascular Problems: Yes High Cholesterol: Yes Chemotherapy: No Chest Pain: Yes Congestive Heart Failure: Yes COPD: Yes Cerebrovascular Accident: No Coronary Artery Disease: Yes Diabetes: Yes Patient Takes Glucophage: Yes Diminished Hearing: No Endocrine: No Gastrointestinal Disorders: Yes (GERD) Genitourinary: No Headaches: Yes Hiatal Hernia: No Hypertension: Yes Immune Disorder: No Implanted Vascular Access Dvce: Yes Kidney Stones: No Musculoskeletal: Yes (OA, HX OF R TOTAL HIP) Neurologic: Yes (SHORT TERM MEMORY LOSS, HX OF SEIZURES) Psychiatric: Yes (COGNITIVE MEMORY LOSS, HX OF ANTISOCIAL PERSONALITY DISORDER) Reproductive: No Respiratory: Yes Integumentary: Yes Immunizations Current: No Myocardial Infarction: Yes Radiation Therapy: No Renal Failure: No Seizures: Yes Sickle Cell Disease: No Sleep Apnea: No Thyroid Disease: No Ulcer: Yes Past Surgical History Abdominal Surgery: No AICD: Yes (MEDTRONIC) Body Medical Devices: pacemaker Cardiac Surgery: Yes (3 VESSEL BYPASS , AICD IMPLANTED 2009) Coronary Artery Bypass Graft: Yes (3 VESSELS) Ear Surgery: No Endocrine Surgery: No Eye Surgery: No Genitourinary Surgery: Yes (PROSTATE) Gynecologic Surgery: No Joint Replacement: No Oral Surgery: Yes (MED INDUCED SEIZURES) Pacemaker: Yes Thoracic Surgery: No Other Surgery: Yes Social History Alcohol Use: No Tobacco Use: No ("QUIT 4 DAYS AGO") Substance Use: No Allergies-Medications (Allergen,Severity, Reaction): Coded Allergies: divalproex sodium (Unverified Allergy, Severe, SEIZURES, 02/24/17) "doesn't control seizures" phenytoin (Unverified Allergy, Severe, SEIZURES, 02/24/17) "doesn't control seizures" tetanus toxoid, adsorbed (Unverified Allergy, Severe, SWELLING, 02/24/17) MAJOR LOCAL SWELLING *MDRO Multi-Drug Resistant Organism (Verified Allergy, Unknown, 02/24/17) Klebsiella pneumoniae ESBL + 08/2012 Reported Meds & Prescriptions Reported Meds & Active Scripts Active Prednisone 10 Mg Tab 10 Mg PO DAILY 7 Days Coumadin (Warfarin) 5 Mg Tab 5 Mg PO DAILY@1600 30 Days Potassium Chloride Microencaps 20 Meq Tab 20 Meq PO BID 30 Days Prednisone 10 Mg Tab 10 Mg PO DAILY 7 Days Lisinopril 5 Mg Tab 2.5 Mg PO DAILY 30 Days Furosemide 40 Mg Tab 40 Mg PO BID@09,18 30 Days Oxygen tank (Oxygen) 1 Ea Tank 2 Liter AJ.CANULA CONTINUOUS Oxygen Concentrator Portable Gaseous 2 L/min via Nasal Cannula Continuous For 99 months Symbicort Inh (Budesonide/Formoterol Fumarate) 160-4.5 Mcg/Act Aero 1 Puff INH Q12HR Reported Colace (Docusate Sodium) 100 Mg Capsule 100 Mg PO BID Isosorbide Mononitrate ER (Isosorbide Mononitrate) 60 Mg Tab 60 Mg PO DAILY Metoprolol Tartrate 25 Mg Tab 25 Mg PO BID Metformin (Metformin HCl) 500 Mg Tab 500 Mg PO BIDPC With meals Flomax (Tamsulosin HCl) 0.4 Mg Cap 0.4 Mg PO HS Neurontin (Gabapentin) 600 Mg Tab 1,200 Mg PO TID Lopid (Gemfibrozil) 600 Mg Tab 600 Mg PO BIDAC Take 30 minutes prior to breakfast and dinner Paxil (Paroxetine HCl) 10 Mg Tab 10 Mg PO DAILY Review of Systems Except as stated in HPI: all other systems reviewed are Neg Physical Exam Narrative GENERAL: Well-developed, well-nourished, moderate to severe respiratory distress , speaking a few words at a time. SKIN: Focused skin assessment warm/dry. HEAD: Atraumatic. Normocephalic. EYES: Pupils equal and round. No scleral icterus. No injection or drainage. ENT: No nasal bleeding or discharge. Mucous membranes pink and moist. NECK: Trachea midline. No JVD. CARDIOVASCULAR: Regular rate and rhythm. RESPIRATORY: Moderate to severe respiratory distress. Speaking a few words at a time. Poor air movement bilaterally. Slight end expiratory wheezes bilaterally with slight rales noted at the bases bilaterally. GASTROINTESTINAL: Abdomen soft, non-tender, nondistended. MUSCULOSKELETAL: No obvious deformities. No clubbing. No cyanosis. Significant bilateral lower extremity edema from foot to thigh. NEUROLOGICAL: Awake and alert. No obvious cranial nerve deficits. Motor grossly within normal limits. Normal speech. PSYCHIATRIC: Appropriate mood and affect; insight and judgment normal. Data Data Last Documented VS Vital Signs Date Time Temp Pulse Resp B/P (MAP) Pulse Ox O2 Delivery O2 Flow Rate FiO2 02/24/17 06:47 22 99 BiPAP 02/24/17 06:38 100 02/24/17 06:23 97.5 122/77 (92) Orders Orders Complete Blood Count With Diff (02/24/17 06:25) Comprehensive Metabolic Panel (02/24/17 06:25) B-Type Natriuretic Peptide (02/24/17 06:25) Act Partial Throm Time (Ptt) (02/24/17 06:25) Prothrombin Time / Inr (Pt) (02/24/17 06:25) Ckmb (Isoenzyme) Profile (02/24/17 06:25) Troponin I (02/24/17 06:25) Arterial Blood Gas (Abg) (02/24/17 06:25) Influenzae A/B Antigen (02/24/17 06:25) Blood Culture (02/24/17 06:25) Iv Access Insert/Monitor (02/24/17 06:25) Electrocardiogram (02/24/17 06:25) Ecg Monitoring (02/24/17 06:25) Oximetry (02/24/17 06:25) Oxygen Administration (02/24/17 06:25) Chest, Single Ap (02/24/17 06:25) Sodium Chloride 0.9% Flush (Ns Flush) (02/24/17 06:30) Methylprednisolone So Succ Inj (Solumedr (02/24/17 06:30) Albuterol-Ipratropium Neb (Duoneb Neb) (02/24/17 06:30) Resp Bipap / Cpap Non Invas Vt (02/24/17 06:25) Ceftriaxone Inj (Rocephin Inj) (02/24/17 07:00) Azithromycin Inj (Zithromax Inj) (02/24/17 07:00) MDM Medical Decision Making Medical Screen Exam Complete: Yes Emergency Medical Condition: Yes Interpretation(s) EKG: A. fib rate 102, leftward axis, LVH, left bundle branch block pattern which is old, lateral ST depressions and T-wave inversions, no ST elevations. Differential Diagnosis Pulmonary edema, CHF, COPD exacerbation, pneumonia, pneumothorax, ACS, PE Narrative Course Patient's O2 saturation was 83% on 2 L nasal cannula with significant respiratory distress. He was placed on BiPAP and had almost immediate improvement in respiratory status. Chest x-ray was promptly read and shows some bilateral pulmonary edema with pulmonary infiltrate. The patient was started on IV Rocephin and azithromycin. At approximately 7:00 AM at the end of my shift the patient was signed out to oncoming provider Dr. Donohue who will follow up with labs, reassessments, and disposition the patient. Lyndon Burleson MD Feb 24, 2017 06:49
--- NOTE | 2017-02-24 06:50 | RADRPT ---
EXAM DATE/TIME: 02/24/2017 06:33 [facility] COMPARISON: CHEST SINGLE AP, December 23, 2013, 10:52. CHEST SINGLE AP, August 19, 2016, 11:47. INDICATIONS : Shortness of breath MEDICAL HISTORY : Hypertension. Myocardial infarction. Chronic obstructive pulmonary disease. SURGICAL HISTORY : CABG. Pacemaker. ENCOUNTER: Initial ACUITY: 1 day PAIN SCORE: 7/10 LOCATION: Bilateral chest FINDINGS: Single AP view of the chest. New left lower lobe pulmonary consolidation and small bilateral pleural effusions. 8 cm rounded opacity lateral left mid lung zone. AICD in place. Mild cardiac silhouette en largement. Old left clavicle fracture. CONCLUSION: 1. Left lower lobe consolidation and small bilateral pleural effusions. 2. Rounded lateral left midlung opacity may represent fluid within the major fissure or pulmonary par enchymal opacity. Lateral chest radiograph could be performed for further characterization. Nicolas Dsouza MD on February 24, 2017 at 6:46 Board Certified Radiologist. This report was verified electronically.
[2017-02-24] MEDS: RESP: ALBUTEROL 2.5 MG/IPRATROPIUM 0.5 MG NEB (SCH) INH ×4 (06:58→21:07)
[2017-02-24] MEDS ORDERED: AZITHROMYCIN INJ 500 MG in SODIUM CHLOR 0.9% 250 ML INJ 250 ML IV ONE (07:00)
[2017-02-24] MEDS ORDERED: cefTRIAXone INJ 1,000 MG in SODIUM CHLORIDE 0.9% INJ 100 ML IV ONE (07:00)
[2017-02-24] MEDS ORDERED: FURO20TA PO (07:06)
[2017-02-24] MEDS ORDERED: SPIR25TA PO (07:06)
[2017-02-24] MEDS ORDERED: VESI5TAB2 PO (07:06)
[2017-02-24] MEDS ORDERED: ISOS30TA3 PO (07:06)
[2017-02-24] MEDS ORDERED: BUME2TAB PO (07:06)
--- NOTE | 2017-02-24 07:10 | PD ---
Physical Exam Narrative Received sign out from previous team to follow up labs and admit. 71yo M with PMH of COPD, CHF here with sob for 1 day. Pt found to be in respiratory distress and saturating at 83% with 2L NC. Pt was placed on BIPAP by previous team and is doing much better. Pt evaluated at bedside and is feeling better, speaking in complete sentences. O2 sat is 100% but pt is on 100 % on BIPAP. Pt denies any chest pain. Coarse breath sounds bilaterally. Marked edema in bilateral lower extremity. CXR showed left lower lobe consolidation and small bilateral pleural effusions. Rounded lateral mid lung opacity may represent fluid within the major fissure or pulmonary parenchymal opacity. Pt given ceftriaxone and azithromycin as well as methylprednisolone and duonebs by previous team. Labs reviewed, no leukocytosis. BNP elevated at 713. K: 4.0 with slight hemolysis noted. BUN mildly elevated at 27 with normal creatinine at 1.18. Pt was initially normotensive, repeat BP at 7:19am showed BP of 202/99. Lasix 40mg IV given. Discussed with Dr. Garcia from ICU and accepted to her service. Data Data Last Documented VS Vital Signs Date Time Temp Pulse Resp B/P (MAP) Pulse Ox O2 Delivery O2 Flow Rate FiO2 02/24/17 07:19 71 20 202/99 (133) 96 Room Air 02/24/17 07:16 100 02/24/17 06:23 97.5 Orders Orders Complete Blood Count With Diff (02/24/17 06:25) Comprehensive Metabolic Panel (02/24/17 06:25) B-Type Natriuretic Peptide (02/24/17 06:25) Act Partial Throm Time (Ptt) (02/24/17 06:25) Prothrombin Time / Inr (Pt) (02/24/17 06:25) Ckmb (Isoenzyme) Profile (02/24/17 06:25) Troponin I (02/24/17 06:25) Arterial Blood Gas (Abg) (02/24/17 06:25) Influenzae A/B Antigen (02/24/17 06:25) Blood Culture (02/24/17 06:25) Iv Access Insert/Monitor (02/24/17 06:25) Electrocardiogram (02/24/17 06:25) Ecg Monitoring (02/24/17 06:25) Oximetry (02/24/17 06:25) Oxygen Administration (02/24/17 06:25) Chest, Single Ap (02/24/17 06:25) Sodium Chloride 0.9% Flush (Ns Flush) (02/24/17 06:30) Methylprednisolone So Succ Inj (Solumedr (02/24/17 06:30) Albuterol-Ipratropium Neb (Duoneb Neb) (02/24/17 06:30) Resp Bipap / Cpap Non Invas Vt (02/24/17 06:25) Ceftriaxone Inj (Rocephin Inj) (02/24/17 07:00) Azithromycin Inj (Zithromax Inj) (02/24/17 07:00) CKMB (02/24/17 06:35) CKMB% (02/24/17 06:35) Furosemide Inj (Lasix Inj) (02/24/17 08:00) Admit Order (Ed Use Only) (02/24/17 08:19) Labs Laboratory Tests Test 02/24/17 06:35 02/24/17 06:47 White Blood Count 6.0 TH/MM3 Red Blood Count 4.39 MIL/MM3 Hemoglobin 13.5 GM/DL Hematocrit 40.1 % Mean Corpuscular Volume 91.2 FL Mean Corpuscular Hemoglobin 30.8 PG Mean Corpuscular Hemoglobin Concent 33.7 % Red Cell Distribution Width 15.0 % Platelet Count 183 TH/MM3 Mean Platelet Volume 7.5 FL Neutrophils (%) (Auto) 71.9 % Lymphocytes (%) (Auto) 13.5 % Monocytes (%) (Auto) 13.1 % Eosinophils (%) (Auto) 0.2 % Basophils (%) (Auto) 1.3 % Neutrophils # (Auto) 4.3 TH/MM3 Lymphocytes # (Auto) 0.8 TH/MM3 Monocytes # (Auto) 0.8 TH/MM3 Eosinophils # (Auto) 0.0 TH/MM3 Basophils # (Auto) 0.1 TH/MM3 CBC Comment DIFF FINAL Differential Comment Prothrombin Time 33.0 SEC Prothromb Time International Ratio 3.3 RATIO Activated Partial Thromboplast Time 48.5 SEC Blood Urea Nitrogen 27 MG/DL Creatinine 1.18 MG/DL Random Glucose 108 MG/DL Total Protein 7.8 GM/DL Albumin 3.1 GM/DL Calcium Level 9.3 MG/DL Alkaline Phosphatase 64 U/L Aspartate Amino Transf (AST/SGOT) 126 U/L Alanine Aminotransferase (ALT/SGPT) 69 U/L Total Bilirubin 1.1 MG/DL Sodium Level 130 MEQ/L Potassium Level 4.0 MEQ/L Chloride Level 84 MEQ/L Carbon Dioxide Level 35.7 MEQ/L Anion Gap 10 MEQ/L Estimat Glomerular Filtration Rate 61 ML/MIN Total Creatine Kinase 257 U/L Creatine Kinase MB 3.4 NG/ML Troponin I 0.04 NG/ML B-Type Natriuretic Peptide 713 PG/ML Blood Gas Puncture Site LT RADIAL Blood Gas Patient Temperature 98.6 Blood Gas HCO3 35 mmol/L Blood Gas Base Excess 9.9 mmol/L Blood Gas Oxygen Saturation 98 % Arterial Blood pH 7.42 Arterial Blood Partial Pressure CO2 55 mmHg Arterial Blood Partial Pressure O2 142 mmHG Arterial Blood Oxygen Content 18.4 Vol % Arterial Blood Carboxyhemoglobin 1.1 % Arterial Blood Methemoglobin 0.5 % Blood Gas Hemoglobin 13.3 G/DL Oxygen Delivery Device BIPAP Blood Gas Ventilator Setting SEE COMMENTS Blood Gas Inspired Oxygen 100 % MDM Supervised Visit with SALVATORE: No Critical Care Narrative Aggregate critical care time was 35 minutes. Time to perform other separately billable procedures was not included in the critical care time. My time did not include minutes spent treating any other patients simultaneously or on activities that did not directly contribute to the patient's treatment. The services I provided to this patient were to treat and/or prevent clinically significant deterioration that could result in: Respiratory distress or . I provided critical care services requiring my management, as noted below: Chart data review, documentation time, medication orders and management, vital sign assessments/reviewing monitor data, ordering and reviewing lab tests, ordering and interpreting/reviewing x-rays and diagnostic studies, care of the patient and discussion of the patient with the admitting physicians. Diagnosis Primary Impression: Pulmonary edema Qualified Codes: J81.0 - Acute pulmonary edema Additional Impression: Pneumonia Qualified Codes: J18.1 - Lobar pneumonia, unspecified organism Admitting Information Admitting Physician Requests: Admit Rika Donohue DO Feb 24, 2017 07:10
[2017-02-24 07:12] LABS: AUTOMATED NEUTROPHIL # 4.3 TH/MM3 (1.8-7.7); BASOPHIL # 0.1 TH/MM3 (0-0.2); BASOPHIL % 1.3 % (0.0-2.0); EOSINOPHIL % 0.2 % (0.0-4.0); HEMATOCRIT 40.1 % (39.0-51.0); HEMOGLOBIN 13.5 GM/DL (13.0-17.0); LYMPH % 13.5 % (9.0-44.0); LYMPHOCYTE # 0.8 TH/MM3 (1.0-4.8); MEAN CELL VOLUME 91.2 FL (80.0-100.0); MEAN CORPUSCULAR HEMOGLOBIN 30.8 PG (27.0-34.0); MEAN CORPUSCULAR HGB CONC 33.7 % (32.0-36.0); MEAN PLATELET VOLUME 7.5 FL (7.0-11.0); MONO % 13.1 % (0.0-8.0); MONOCYTE # 0.8 TH/MM3 (0-0.9); NEUT % 71.9 % (16.0-70.0); PLATELET COUNT 183 TH/MM3 (150-450); RED BLOOD COUNT 4.39 MIL/MM3 (4.50-5.90)
[2017-02-24 07:26] LABS: INTERNATIONAL NORMALIZED RATIO 3.3 RATIO
[2017-02-24 07:42] LABS: ALBUMIN 3.1 GM/DL (3.4-5.0); ALKALINE PHOSPHATASE 64 U/L (45-117); ALT (GPT) 69 U/L (12-78); AST (GOT) 126 U/L (15-37); BICARBONATE 35.7 MEQ/L (21.0-32.0); BLOOD UREA NITROGEN 27 MG/DL (7-18); CALCIUM 9.3 MG/DL (8.5-10.1); CHLORIDE 84 MEQ/L (98-107); CREATININE 1.18 MG/DL (0.60-1.30); GLOMERULAR FILTRATION RATE 61 ML/MIN (>89); GLUCOSE,RANDOM 108 MG/DL (74-106); SODIUM (NA) 130 MEQ/L (136-145); TOTAL BILIRUBIN ADULT 1.1 MG/DL (0.2-1.0); TOTAL PROTEIN 7.8 GM/DL (6.4-8.2); TROPONIN I 0.04 NG/ML (0.02-0.05)
[2017-02-24] MEDS ORDERED: FUROSEMIDE 40 MG/4 ML VIAL IV PUSH ONE (08:00)
[2017-02-24] MEDS ORDERED: HEPARIN SODIUM - SQ 10,000 UNITS/ML VIAL SQ SCH (08:45)
[2017-02-24] MEDS ORDERED: RESP: ALBUTEROL 2.5 MG/IPRATROPIUM 0.5 MG NEB (PRN) INH (08:45)
[2017-02-24] MEDS ORDERED: MAGNESIUM HYDROXIDE SUSP 30 ML CUP PO PRN (08:45)
[2017-02-24] MEDS ORDERED: CHLORHEXIDINE GLUCONATE 2 % 1 PACK (2 CLOTHS) TOP PRN (08:45)
[2017-02-24] MEDS ORDERED: ACETAMINOPHEN 325 MG TAB PO PRN (08:45)
[2017-02-24] MEDS ORDERED: LACTULOSE SYRUP 20 GM/30 ML CUP PO PRN (08:45)
[2017-02-24] MEDS ORDERED: SODIUM CHLORIDE 0.9% FLUSH 10 ML FLUSH IV FLUSH PRN (08:45)
[2017-02-24] MEDS ORDERED: MISCELLANEOUS NURSING INFORMATION XX SCH (08:45)
[2017-02-24] MEDS ORDERED: BISACODYL 10 MG SUPP RECTAL PRN (08:45)
[2017-02-24] MEDS ORDERED: ONDANSETRON HCL 4 MG/2 ML VIAL IV PUSH PRN (08:45)
[2017-02-24] MEDS ORDERED: SENNOSIDES 8.6 MG TAB PO PRN (08:45)
[2017-02-24] MEDS: DOCUSATE SODIUM 50 MG/SENNA 8.6 MG TAB PO SCH ×2 (09:00→20:25)
[2017-02-24] MEDS: SODIUM CHLORIDE 0.9% FLUSH 10 ML FLUSH IV FLUSH SCH ×2 (09:00→20:25)
[2017-02-24] MEDS: FAMOTIDINE 20 MG/2 ML VIAL IV PUSH SCH ×2 (11:50→20:25)
--- NOTE | 2017-02-24 13:38 | HHI.HP ---
HPI Service Critical Care Medicine Primary Care Physician Non-Staff Admission Diagnosis Pulmonary edema, pneumonia Diagnosis: Travel History International Travel<30 Days: No Contact w/Intl Traveler <30 Da: No Traveled to Known Affected Are: No History of Present Illness This is a 71-year-old male with a PMH of CHF, COPD on home O2 @ 4LPM, with two- pillow orthopnea was brought in by EMS from home for evaluation of 2 days of worsening shortness of breath, no appetite, and malaise. Per EMS report the patient had severe respiratory distress with poor air movement bilaterally with wheezes bilaterally with an O2 saturation in the 80s on room air. They administered 2 albuterol nebulized treatments as well as 125 mg of IV Solu- Medrol en route to the hospital. Upon arrival to the ED, the patient was in moderate respiratory distress, speaking a few words at a time with very poor air movement bilaterally. He notes only minimal improvement with the treatment he had received by EMS. He denied chest pain. He has had a nonproductive cough. He has not noted any fevers or chills. He is also had some worsening bilateral lower extremity edema. His gauge operator is Dr. Bolanos. In the ED the patient was noted to be in A. fib RVR heart rate 101, and was placed on BiPAP, and given 40 mg of Lasix, and 40 mg of methylprednisolone with improvement of his symptoms. Critical care medicine was consulted. History PFSH Past Medical History Hx Anticoagulant Therapy: Yes (COUMADIN) Arthritis: Yes Asthma: No Autoimmune Disease: No Anxiety: Yes Depression: Yes Heart Rhythm Problems: Yes Cancer: No Cardiac Catheterization: Yes Cardiovascular Problems: Yes High Cholesterol: Yes Chemotherapy: No Chest Pain: Yes Congestive Heart Failure: Yes COPD: Yes Cerebrovascular Accident: No Coronary Artery Disease: Yes Diabetes: Yes Patient Takes Glucophage: Yes Diminished Hearing: No Endocrine: No Gastrointestinal Disorders: Yes (GERD) Genitourinary: No Headaches: Yes Hiatal Hernia: No Hypertension: Yes Immune Disorder: No Implanted Vascular Access Dvce: Yes Kidney Stones: No Musculoskeletal: Yes (OA, HX OF R TOTAL HIP) Neurologic: Yes (SHORT TERM MEMORY LOSS, HX OF SEIZURES) Psychiatric: Yes (COGNITIVE MEMORY LOSS, HX OF ANTISOCIAL PERSONALITY DISORDER) Reproductive: No Respiratory: Yes Integumentary: Yes Immunizations Current: No Myocardial Infarction: Yes Radiation Therapy: No Renal Failure: No Seizures: Yes Sickle Cell Disease: No Sleep Apnea: No Thyroid Disease: No Ulcer: Yes Past Surgical History Abdominal Surgery: No AICD: Yes (MEDTRONIC) Body Medical Devices: pacemaker Cardiac Surgery: Yes (3 VESSEL BYPASS , AICD IMPLANTED 2009) Coronary Artery Bypass Graft: Yes (3 VESSELS) Ear Surgery: No Endocrine Surgery: No Eye Surgery: No Genitourinary Surgery: Yes (PROSTATE) Gynecologic Surgery: No Joint Replacement: No Oral Surgery: Yes (MED INDUCED SEIZURES) Pacemaker: Yes Thoracic Surgery: No Other Surgery: Yes Social History Alcohol Use: No Tobacco Use: No ("QUIT 4 DAYS AGO") Substance Use: No Allergies-Medications Allergies-Medications (Allergen,Severity, Reaction): Coded Allergies: divalproex sodium (Unverified Allergy, Severe, SEIZURES, 02/24/17) "doesn't control seizures" phenytoin (Unverified Allergy, Severe, SEIZURES, 02/24/17) "doesn't control seizures" tetanus toxoid, adsorbed (Unverified Allergy, Severe, SWELLING, 02/24/17) MAJOR LOCAL SWELLING *MDRO Multi-Drug Resistant Organism (Verified Allergy, Unknown, 02/24/17) Klebsiella pneumoniae ESBL + 08/2012 Reported Meds & Prescriptions Reported Meds & Active Scripts Active Prednisone 10 Mg Tab 10 Mg PO DAILY 7 Days Coumadin (Warfarin) 5 Mg Tab 5 Mg PO DAILY@1600 30 Days Potassium Chloride Microencaps 20 Meq Tab 20 Meq PO BID 30 Days Prednisone 10 Mg Tab 10 Mg PO DAILY 7 Days Lisinopril 5 Mg Tab 2.5 Mg PO DAILY 30 Days Furosemide 40 Mg Tab 40 Mg PO BID@09,18 30 Days Oxygen tank (Oxygen) 1 Ea Tank 2 Liter AJ.CANULA CONTINUOUS Oxygen Concentrator Portable Gaseous 2 L/min via Nasal Cannula Continuous For 99 months Symbicort Inh (Budesonide/Formoterol Fumarate) 160-4.5 Mcg/Act Aero 1 Puff INH Q12HR Reported Colace (Docusate Sodium) 100 Mg Capsule 100 Mg PO BID Isosorbide Mononitrate ER (Isosorbide Mononitrate) 60 Mg Tab 60 Mg PO DAILY Metoprolol Tartrate 25 Mg Tab 25 Mg PO BID Metformin (Metformin HCl) 500 Mg Tab 500 Mg PO BIDPC With meals Flomax (Tamsulosin HCl) 0.4 Mg Cap 0.4 Mg PO HS Neurontin (Gabapentin) 600 Mg Tab 1,200 Mg PO TID Lopid (Gemfibrozil) 600 Mg Tab 600 Mg PO BIDAC Take 30 minutes prior to breakfast and dinner Paxil (Paroxetine HCl) 10 Mg Tab 10 Mg PO DAILY ROS Review of Systems Except as stated in HPI: all other systems reviewed are Neg Physical Exam Vital Signs Vital Signs Date Time Temp Pulse Resp B/P (MAP) Pulse Ox O2 Delivery O2 Flow Rate FiO2 02/24/17 10:26 95 45 02/24/17 09:50 95 17 118/77 (91) 97 BiPAP 02/24/17 09:00 96 45 02/24/17 07:19 71 20 202/99 (133) 96 Room Air 02/24/17 07:16 94 100 02/24/17 07:06 104 27 132/82 (99) 99 BiPAP 02/24/17 06:47 22 99 BiPAP 02/24/17 06:38 100 BiPAP 100 02/24/17 06:35 98 100 02/24/17 06:31 95 BiPAP 100 02/24/17 06:23 97.5 122/77 (92) 88 Physical Exam GENERAL: Well-developed well-nourished gentleman looking older than stated age currently on BiPAP, in mild respiratory distress SKIN: Warm and dry. HEAD: Atraumatic. Normocephalic. EYES: Pupils equal and round. No scleral icterus. No injection or drainage. ENT: No nasal bleeding or discharge. Mucous membranes pink and moist. NECK: Trachea midline. No JVD. CARDIOVASCULAR: Normal rate, irregular rhythm. RESPIRATORY: No accessory muscle use. Coarse expiratory wheezing bilaterally. Breath sounds equal bilaterally. Currently on BiPAP 14/5/0.75 GASTROINTESTINAL: Abdomen soft, non-tender, nondistended. No guarding. Normoactive bowel sounds MUSCULOSKELETAL: Extremities without clubbing, cyanosis, or edema. No obvious deformities. 3+ pedal / lower extremity edema NEUROLOGICAL: Awake and alert. RASS 0. No gross focal/sensory deficits. Follows commands in all 4 extremities. Laboratory Laboratory Tests Test 02/24/17 06:35 02/24/17 06:47 White Blood Count 6.0 Red Blood Count 4.39 Hemoglobin 13.5 Hematocrit 40.1 Mean Corpuscular Volume 91.2 Mean Corpuscular Hemoglobin 30.8 Mean Corpuscular Hemoglobin Concent 33.7 Red Cell Distribution Width 15.0 Platelet Count 183 Mean Platelet Volume 7.5 Neutrophils (%) (Auto) 71.9 Lymphocytes (%) (Auto) 13.5 Monocytes (%) (Auto) 13.1 Eosinophils (%) (Auto) 0.2 Basophils (%) (Auto) 1.3 Neutrophils # (Auto) 4.3 Lymphocytes # (Auto) 0.8 Monocytes # (Auto) 0.8 Eosinophils # (Auto) 0.0 Basophils # (Auto) 0.1 CBC Comment DIFF FINAL Differential Comment Prothrombin Time 33.0 Prothromb Time International Ratio 3.3 Activated Partial Thromboplast Time 48.5 Blood Urea Nitrogen 27 Creatinine 1.18 Random Glucose 108 Total Protein 7.8 Albumin 3.1 Calcium Level 9.3 Alkaline Phosphatase 64 Aspartate Amino Transf (AST/SGOT) 126 Alanine Aminotransferase (ALT/SGPT) 69 Total Bilirubin 1.1 Sodium Level 130 Potassium Level 4.0 Chloride Level 84 Carbon Dioxide Level 35.7 Anion Gap 10 Estimat Glomerular Filtration Rate 61 Total Creatine Kinase 257 Creatine Kinase MB 3.4 Troponin I 0.04 B-Type Natriuretic Peptide 713 Blood Gas Puncture Site LT RADIAL Blood Gas Patient Temperature 98.6 Blood Gas HCO3 35 Blood Gas Base Excess 9.9 Blood Gas Oxygen Saturation 98 Arterial Blood pH 7.42 Arterial Blood Partial Pressure CO2 55 Arterial Blood Partial Pressure O2 142 Arterial Blood Oxygen Content 18.4 Arterial Blood Carboxyhemoglobin 1.1 Arterial Blood Methemoglobin 0.5 Blood Gas Hemoglobin 13.3 Oxygen Delivery Device BIPAP Blood Gas Ventilator Setting SEE COMMENTS Blood Gas Inspired Oxygen 100 Date/Time Source Procedure Growth Status 02/24/17 06:35 Blood Peripheral Aerobic Blood Culture Pending Received 02/24/17 06:35 Blood Peripheral Anaerobic Blood Culture Pending Received 02/24/17 06:50 Nasal Washing Influenza Types A,B Antigen (CESAR) - Final NEGATIVE FOR FLU A AND B ANTIGEN.... Complete Result Diagram: 02/24/1763402/24/17634 Imaging Last Impressions Chest X-Ray 02/24/17624 Signed Impressions: Service Date/Time: Friday, February 24, 2017 06:33 - CONCLUSION: 1. Left lower lobe consolidation and small bilateral pleural effusions. 2. Rounded lateral left midlung opacity may represent fluid within the major fissure or pulmonary parenchymal opacity. Lateral chest radiograph could be performed for further characterization. Nicolas Dsouza MD Septic Shock Reassessment Septic shock perfusion: reassessment completed Caprini VTE Risk Assessment Caprini VTE Risk Assessment: Mod/High Risk (score >= 2) VTE Pharm Contraindication: Coagulopathy,INR elevated Caprini Risk Assessment Model Point Value = 1 Point Value = 2 Point Value = 3 Point Value = 5 Age 41-60 Minor surgery BMI > 25 kg/m2 Swollen legs Varicose veins or History of unexplained or recurrent spontaneous Oral contraceptives or hormone replacement Sepsis (< 1 month) Serious lung disease, including pneumonia (< 1 month) Abnormal pulmonary function Acute myocardial infarction Congestive heart failure (< 1 month) History of inflammatory bowel disease Medical patient at bed rest Age 61-74 Arthroscopic surgery Major open surgery (> 45 min) Laparoscopic surgery (> 45 min) Malignancy Confined to bed (> 72 hours) Immobilizing plaster cast Central venous access Age >= 75 History of VTE Family history of VTE Factor V Leiden Prothrombin [id number] Lupus anticoagulant Anticardiolipin antibodies Elevated serum homocysteine Heparin-induced thrombocytopenia Other congenital or acquired thrombophilia Stroke (< 1 month) Elective arthroplasty Hip, pelvis, or leg fracture Acute spinal cord injury (< 1 month) Prophylaxis Regimen Total Risk Factor Score Risk Level Prophylaxis Regimen 0-1 Low Early ambulation 2 Moderate Order ONE of the following: *Sequential Compression Device (SCD) *Heparin 5000 units SQ BID 3-4 Higher Order ONE of the following medications: *Heparin 5000 units SQ TID *Enoxaparin/Lovenox 40 mg SQ daily (WT < 150 kg, CrCl > 30 mL/min) *Enoxaparin/Lovenox 30 mg SQ daily (WT < 150 kg, CrCl > 10-29 mL/min) *Enoxaparin/Lovenox 30 mg SQ BID (WT < 150 kg, CrCl > 30 mL/min) AND/OR *Sequential Compression Device (SCD) 5 or more Highest Order ONE of the following medications: *Heparin 5000 units SQ TID (Preferred with Epidurals) *Enoxaparin/Lovenox 40 mg SQ daily (WT < 150 kg, CrCl > 30 mL/min) *Enoxaparin/Lovenox 30 mg SQ daily (WT < 150 kg, CrCl > 10-29 mL/min) *Enoxaparin/Lovenox 30 mg SQ BID (WT < 150 kg, CrCl > 30 mL/min) AND *Sequential Compression Device (SCD) Assessment and Plan Problem List: (1) Respiratory distress ICD Code: R06.00 - Dyspnea, unspecified Status: Acute (2) Hypoxia ICD Code: R09.02 - Hypoxemia Status: Acute (3) Demand ischemia ICD Code: I24.8 - Other forms of acute ischemic heart disease; R65.20 - Severe sepsis without septic shock Status: Acute (4) Sepsis ICD Code: A41.9 - Sepsis, unspecified organism Status: Acute (5) Chronic anticoagulation ICD Code: Z79.01 - assisted (current) use of anticoagulants Status: Chronic (6) CHF (congestive heart failure) ICD Code: I50.9 - Heart failure, unspecified Status: Acute (7) COPD (chronic obstructive pulmonary disease) ICD Code: J44.9 - Chronic obstructive pulmonary disease, unspecified Status: Chronic (8) Acute exacerbation of CHF (congestive heart failure) ICD Code: I50.9 - Heart failure, unspecified Status: Acute (9) Pneumonia ICD Code: J18.9 - Pneumonia, unspecified organism Status: Acute (10) Pulmonary edema ICD Code: J81.1 - Chronic pulmonary edema Status: Acute (11) CHF exacerbation ICD Code: I50.9 - Heart failure, unspecified Status: Acute (12) History of atrial fibrillation ICD Code: Z86.79 - History of atrial fibrillation Status: Acute (13) Diabetes mellitus, type II ICD Code: E11.9 - Type 2 diabetes mellitus Status: Acute (14) Hyperlipidemia ICD Code: E78.5 - Hyperlipidemia Status: Acute Assessment and Plan This is a 71-year-old male with past medical history significant for ischemic cardiomyopathy, with AICD. With a medical history significant for COPD and now presents with exacerbation of CHF and probable pneumonia. Discussion with patient he is a DNR however would like to be intubated if his respiratory status declines. Palliative medicine consulted for clarification of the fine goals of treatment. Admit to ICU. Plan by systems: Neurologic: Diabetic neuropathy Avoid long-acting sedative type medications Tylenol 650 mg every 6 hours when necessary for pain and/or temperature > 101.0 Patient normally on gabapentin 1200 mg 3 times a day, and paroxetine 10 mg/day will hold for now Respiratory: COPD Possible HCAP Pulmonary edema Home O2 dependency @4LPM Maintain O2 sat greater than 92% Continue BiPAP currently at 14/7 FiO2 of 0.45%, until you to wean FiO2 Duo nebs every 6 hours scheduled Patient received methylprednisolone 40 mg 1 dose in ED, continue methylprednisolone 40 mg twice a day Patient received Lasix 40 mg in the ED-greater than 600 cc output, continue Lasix 40 mg twice a day 02/24 chest x-ray Left lower lobe consolidation, a centimeter opacity lateral left midlung, small bilateral pleural effusions Patient's baseline is 2 pillow orthopnea with 4 L home O2 dependency Repeat chest x-ray in a.m. Obtain ABG Cardiovascular: CHF exacerbation Ischemic cardiomyopathy with AICD A. fib RVR History of hypertension Initial presentation patient in A. fib RVR HR 101, upon application of BiPAP HR normalized 80s Initial troponin 0.04, continue to follow trend Echo 02/09/16 EF 40-45%, mild MR, trace AR BMP 713 Continue Isordil 30 mg/day, metoprolol 25 mg twice a day, lisinopril 5 mg/day and spironolactone 25 mg/day Renal: Renal insufficiency Place Regalado catheter patient receiving diuretics to measure adequate urinary output -- Strict I/Os FEN/GI: Hypercholesterolemia GERD Electrolyte derangement Maintain nothing by mouth status except meds for now Bedside swallow this afternoon Zofran for nausea Famotidine GI prophylaxis Sodium 130, possible chronic continue to monitor Replete electrolytes per ICU protocol Continue gemfibrozil 600 mg twice a day Heme/ID: Chronic anticoagulation Patient normally on Coumadin 5 mg/day-INR 3.3 this a.m., will hold Coumadin dosing today Repeat INR in a.m.-maintain INR 2.0-3.0 Obtain urine and blood cultures Obtain pneumococcal antigen 02/24 Influenza A- negative Endocrine: Diabetes mellitus Glucose monitoring per ICU protocol Hold metformin -- SSI Prophylaxis: GI Prophylaxis Famotidine BID DVT Prophylaxis -- SCDs Patient on chronic anticoagulation, Coumadin, INR 3.3 Lines: Peripheral IVs 2. Central line if indicated Dispo: my billing statement This patient remains critically ill with one or more organ systems which are or may become a threat to life. I have spent in excess of 47 minutes discontinuously in the care and management of this patient. This time is exclusive of procedures, and includes, but is not limited to, evaluation of the patient, review of the medical record, discussions with family, consultants, nursing staff, or respiratory therapy, and documentation in the medical record. Code Status DNR, but patient requesting intubation if clinically indicated . Discussed Condition With Dr. Donohue, ED RN , PEARL TECHNICIAN at bedside (Susana) Problem Qualifiers (1) Pneumonia: Qualified Codes: J18.1 - Lobar pneumonia, unspecified organism (2) Pulmonary edema: Qualified Codes: J81.0 - Acute pulmonary edema Esther Garcia MD Feb 24, 2017 13:38
[2017-02-24] MEDS ORDERED: SODIUM PHOSPHATE INJ 30 MMOL in SODIUM CHLOR 0.9% 250 ML INJ 240 ML IV PRN (13:45)
[2017-02-24] MEDS ORDERED: POTASSIUM CHLORIDE 25 MEQ EFFERVESCENT TAB PO PRN (13:45)
[2017-02-24] MEDS ORDERED: MAGNESIUM SULFATE INJ 2 GM in SODIUM CHLORIDE 0.9% INJ 96 ML IV PRN (13:45)
[2017-02-24] MEDS ORDERED: POTASSIUM CHLOR 20 MEQ PREMIX 100 ML IV PRN (13:45)
[2017-02-24] MEDS ORDERED: POTASSIUM CHLOR 40 MEQ PREMIX 100 ML IV PRN ×2 (13:45)
[2017-02-24] MEDS ORDERED: POTASSIUM PHOSPHATE INJ 30 MMOL in SODIUM CHLOR 0.9% 250 ML INJ 250 ML IV PRN (13:45)
[2017-02-24] MEDS ORDERED: MAGNESIUM OXIDE 400 MG TAB PO PRN (13:45)
[2017-02-24] MEDS ORDERED: GLUCAGON 1 MG/ML VIAL OTHER PRN (13:45)
[2017-02-24] MEDS ORDERED: DEXTROSE 50% IN WATER 50 ML VIAL(D50) IV PUSH PRN (13:45)
[2017-02-24] MEDS ORDERED: MAGNESIUM SULFATE INJ 4 GM in SODIUM CHLORIDE 0.9% INJ 92 ML IV PRN (13:45)
[2017-02-24] MEDS ORDERED: POTASSIUM PHOSPHATE MONOBASIC 500 MG TAB PO/TUBE PRN (13:45)
[2017-02-24] MEDS ORDERED: POTASSIUM PHOSPHATE MONOBASIC 500 MG TAB PO PRN (13:45)
[2017-02-24] MEDS ORDERED: PILL SPLITTER OTHER PRN (14:15)
[2017-02-24 14:53] LABS: PHOSPHORUS 4.2 MG/DL (2.5-4.9)
[2017-02-24 14:55] LABS: TROPONIN I 0.04 NG/ML (0.02-0.05)
[2017-02-24] MEDS: SODIUM CHLOR 0.9% 1000 ML INJ 1,000 ML IV SCH (15:01)
[2017-02-24] MEDS: CEFEPIME INJ 2,000 MG in SODIUM CHLORIDE 0.9% INJ 100 ML IV SCH ×2 (15:01→22:26)
[2017-02-24] MEDS: GEMFIBROZIL 600 MG TAB PO SCH (16:00)
[2017-02-24] MEDS: INSULIN ASPART SUPPLEMENTAL SCALE SQ SCH ×2 (17:00→20:57)
[2017-02-24] MEDS: methylPREDNISolone SOD SUCC 40 MG/1 ML VIAL IV PUSH SCH (18:00)
--- NOTE | 2017-02-24 19:15 | PD.CONS ---
Consult Service Palliative Care . Consult Requested By Isaias Cifuentes . Primary Care Physician Non-Staff . Reason for Consultation a. To assist with evaluation and management of symptoms including: dyspnea ; generalized weakness b. To assist medical decision maker(s) with: better understanding of current medical conditions; weighing benefits/burdens of medical treatment options; making medical treatment decisions. . HPI History of Present Illness Mr. Ring is a 71-year-old male with a known history of ischemic cardiomyopathy status post pacemaker and AICD placement; CHF; coronary artery disease status post three-vessel bypass surgery in the ; osteoarthritis; anxiety/ depression; hyperlipidemia; COPD; diabetes; GERD; headaches; hypertension; who was brought by EMS from his assisted living facility to the emergency department because of a 2 day history of worsening shortness of breath accompanied by poor appetite and malaise. The patient is normally on home O2 at 4 L a minute 24 hours a day. He normally has 2 pillow orthopnea. Upon EMS arrival at the facility the patient appeared in severe respiratory distress. There were bilateral wheezes. O2 saturations were in the 80s on room air. The patient received a beauty Sandeep nebulizer treatments as well as IV steroids en route to the hospital. He was able to speak a few words at a time. The patient denied chest pain. He normally has a productive cough. He denied any recent fevers or chills. He had reported some worsening bilateral lower extremity edema. This is the patient's fifth hospitalization here since 2015. The patient's wrecking supervisor is Dr. Bolanos. Her consultation notes have indicated there have been problems with compliance particularly with diet and smoking. In the emergency department, vital signs were as follows: Temperature 97.5; respiratory rate 22; BP 122/77; pulse oximetry 99% on BiPAP at 100% FiO2 Initial examination in the emergency department found the patient in moderate to severe respiratory distress. He was able to speak a few words at a time. There was poor air movement bilaterally. There were slight expiratory wheezes and slight rale's at both lung bases. Heart rate was regular. Abdominal exam was benign. There was significant bilateral lower extremity edema from foot to thigh. The patient was awake and alert. Initial diagnostic testing revealed the following: * CBC showed WBC 6.0; hemoglobin 13.5; platelet count was 183 * Coagulation profile showed PT 33; INR 3.3; PTT 48.5 * Chemistry profile showed BUN 27; creatinine 1.18; glucose 108; total protein 7.8; albumin 3.1; calcium 9.3; alkaline phosphatase 64; AST 126; ALT 69; total bilirubin 1.1; sodium 1:30; potassium 4.0; chloride 84; CO2 35.7; anion gap 10; GFR 61 * Cardiac serology show total CK 257; CK-MB 3.4; troponin 0.04; B-type natriuretic peptide 713 * ABGs on BiPAP at 100% FiO2 showed pH 7.42; PCO2 55; PO2 142; bicarbonate 35; base excess 9.9 * Chest x-ray showed left lower lobe consolidation and small bilateral pleural effusions. There was a rounded lateral mid lung opacity. * Electrocardiogram showed atrial fibrillation with rapid ventricular rate of 102. There were some nonspecific T-wave changes. The patient was started on IV Rocephin and azithromycin in the emergency department. He was placed on BiPAP. He was admitted to the critical care unit. The steel division supervisor was consulted. At the time of my visit, the patient is verbal. He has to pause midsentence to catch his breath, however. Patient reported having some pain in the buttocks area. No other complaints at this time. . Function/Cognitive Trajectory As noted above, the patient is a resident of an assisted living facility where he shares a room with another resident. He is on oxygen 24 hours a day. He normally walks with a walker. He reports he is able to toilet himself, dress himself, bathe himself, and feed himself. Patient reports significant weight loss. Hospital records show he was in the range of 106-110 kg about a year ago. More recently he has been between 91 and 95 kg. . Review of Systems Constitutional: COMPLAINS OF: Fatigue, Weight loss, Change in appetite, Pain, Generalized weakness, DENIES: Fever, Chills, Dizziness, Night Sweats Endocrine: DENIES: Polydipsia, Polyuria, Polyphagia Eyes: COMPLAINS OF: Vision loss, DENIES: Blurred vision, Double Vision Ears, nose, mouth, throat: COMPLAINS OF: Hearing loss, DENIES: Throat pain, Epistaxis Respiratory: COMPLAINS OF: Cough, Snoring, Wheezing, Sputum production, Shortness of breath, DENIES: Apneas, Hemoptysis Cardiovascular: COMPLAINS OF: Chest pain, Palpitations, Dyspnea on Exertion, Lower Extremity Edema, DENIES: Syncope Gastrointestinal: DENIES: Abdominal pain, Black stools, Bloody stools, Constipation, Diarrhea, Nausea, Vomiting, Difficulty Swallowing, Anorexia, Dyspepsia or heartburn, Vomiting blood Genitourinary: COMPLAINS OF: Hematuria, Nocturia, DENIES: Urinary frequency, Urinary incontinence Musculoskeletal: COMPLAINS OF: Joint pain, DENIES: Back pain, Neck pain Integumentary: DENIES: Nail changes, Rash Hematologic/Lymphatics: COMPLAINS OF: Bruising Immunologic/Allergic: DENIES: Urticaria Neurologic: COMPLAINS OF: Abnormal gait, Headache, Seizures, DENIES: Localized weakness Psychiatric: COMPLAINS OF: Anxiety, Depression Past Family Social History Coded Allergies: divalproex sodium (Unverified Allergy, Severe, SEIZURES, 02/24/17) "doesn't control seizures" phenytoin (Unverified Allergy, Severe, SEIZURES, 02/24/17) "doesn't control seizures" tetanus toxoid, adsorbed (Unverified Allergy, Severe, SWELLING, 02/24/17) MAJOR LOCAL SWELLING *MDRO Multi-Drug Resistant Organism (Verified Allergy, Unknown, 02/24/17) Klebsiella pneumoniae ESBL + 08/2012 Past Medical History ischemic cardiomyopathy status post pacemaker and AICD placement; CHF; coronary artery disease status post three-vessel bypass surgery in the ; osteoarthritis; anxiety/depression; hyperlipidemia; COPD; diabetes; GERD; headaches; hypertension; Hypertension Coronary artery disease with prior myocardial infarction Prior history of CABG Ischemic cardiomyopathy--Chronic systolic heart failure with ejection fraction of 40-45% Atrial fibrillation on chronic anticoagulations with warfarin Chronic kidney disease stage III COPD Tobacco abuse Depression Diabetes Peripheral neuropathy GERD Headaches Osteoarthritis Status post AICD and pacemaker placement. BPH with history of obstruction. Microhematuria followed by urology. Bilateral adrenal adenomasreportedly stable. Nephrolithiasis. Past Surgical History * Right total hip surgery. * Three-vessel coronary artery bypass surgery in the . * Prostate surgery * Pacemaker placement * AICD placement * Cystoscopy . Reported Medications Prehospitalization medications included the following: Prednisone 10 Mg Tab 10 Mg PO DAILY 7 Days Coumadin (Warfarin) 5 Mg Tab 5 Mg PO DAILY@1600 30 Days Potassium Chloride Microencaps 20 Meq Tab 20 Meq PO BID 30 Days Prednisone 10 Mg Tab 10 Mg PO DAILY 7 Days Lisinopril 5 Mg Tab 2.5 Mg PO DAILY 30 Days Furosemide 40 Mg Tab 40 Mg PO BID@18 30 Days Oxygen tank (Oxygen) 1 Ea Tank 2 Liter AJ.CANULA CONTINUOUS Symbicort Inh (Budesonide/Formoterol Fumarate) 160-4.5 Mcg/Act Aero 1 Puff INH Q12HR Colace (Docusate Sodium) 100 Mg Capsule 100 Mg PO BID Isosorbide Mononitrate ER (Isosorbide Mononitrate) 60 Mg Tab 60 Mg PO DAILY Metoprolol Tartrate 25 Mg Tab 25 Mg PO BID Metformin (Metformin HCl) 500 Mg Tab 500 Mg PO BIDP With meals Flomax (Tamsulosin HCl) 0.4 Mg Cap 0.4 Mg PO HS Neurontin (Gabapentin) 600 Mg Tab 1,200 Mg PO TID Lopid (Gemfibrozil) 600 Mg Tab 600 Mg PO BIDAC Take 30 minutes prior to breakfast and dinner Paxil (Paroxetine HCl) 10 Mg Tab 10 Mg PO DAILY . Current Medications Medications (Trade) Dose Ordered Sig/Kiel Route Start Time Stop Time Status Last Admin (NS Flush) 2 ml UNSCH PRN IV FLUSH 02/24/17 08:45 (NS Flush) 2 ml BID IV FLUSH 02/24/17 09:00 02/24/17 09:00 (Tylenol) 650 mg Q6H PRN PO 02/24/17 08:45 (Pepcid Inj) 20 mg Q12HR IV PUSH 02/24/17 09:00 02/24/17 11:50 (Zofran Inj) 4 mg Q6H PRN IV PUSH 02/24/17 08:45 (Duoneb Neb) 1 ampule Q6HR NEB INH 02/24/17 10:00 02/24/17 16:33 (Duoneb Neb) 1 ampule Q2HR NEB PRN INH 02/24/17 08:45 Miscellaneous Information 1 Q361D XX 02/24/17 08:45 02/24/17 08:45 (Chlorhexidine 2% Cloth) 3 pack Taper DAILY@04 TOP 02/25/17 04:00 02/21/18 03:59 (Chlorhexidine 2% Cloth) 3 pack UNSCH PRN TOP 02/24/17 08:45 (Bina-Colace) 1 tab BID PO 1/5/18 09:00 (Milk Of Magnesia Liq) 30 ml Q12H PRN PO 02/24/17 08:45 (Senokot) 17.2 mg Q12H PRN PO 02/24/17 08:45 (Dulcolax Supp) 10 mg DAILY PRN RECTAL 02/24/17 08:45 (Lactulose Liq) 30 ml DAILY PRN PO 02/24/17 08:45 Cefepime HCl 2000 mg/Sodium Chloride 100 ml @ 200 mls/hr Q8H IV 02/24/17 15:00 02/24/17 15:01 Azithromycin 500 mg/Sodium Chloride 250 ml @ 250 mls/hr Q24H IV 02/25/17 08:00 (SoluMEDROL INJ) 40 mg Q12H IV PUSH 02/24/17 18:00 (Lopid) 600 mg BIDAC PO 02/24/17 16:00 (Imdur) 30 mg DAILY@0700 PO 02/25/17 07:00 (Prinivil) 2.5 mg DAILY PO 02/25/17 09:00 (Lopressor) 25 mg BID PO 02/24/17 21:00 (Aldactone) 25 mg DAILY PO 02/25/17 09:00 (D50w (Vial) Inj) 50 ml UNSCH PRN IV PUSH 02/24/17 13:45 (Glucagon Inj) 1 mg UNSCH PRN OTHER 02/24/17 13:45 (NovoLOG SUPPLEMENTAL SCALE) 1 ACHS SLIDING SCALE SQ 02/24/17 17:00 Potassium Chloride 100 ml @ 50 mls/hr Q2H PRN IV 02/24/17 13:45 Potassium Chloride 100 ml @ 50 mls/hr Q2H PRN IV 02/24/17 13:45 (K-Lyte Cl Eff) 50 meq UNSCH PRN PO 02/24/17 13:45 Potassium Chloride 100 ml @ 25 mls/hr UNSCH PRN IV 02/24/17 13:45 Potassium Chloride 100 ml @ 50 mls/hr Q2H PRN IV 02/24/17 13:45 Magnesium Sulfate 4 gm/Sodium Chloride 100 ml @ 50 mls/hr UNSCH PRN IV 02/24/17 13:45 (Mag-Ox) 800 mg UNSCH PRN PO 02/24/17 13:45 Magnesium Sulfate 2 gm/Sodium Chloride 100 ml @ 50 mls/hr UNSCH PRN IV 02/24/17 13:45 (K-Phos) 2,000 mg Q4H PRN PO 02/24/17 13:45 Sodium Phosphate 30 mmol/Sodium Chloride 250 ml @ 42 mls/hr UNSCH PRN IV 02/24/17 13:45 (K-Phos) 2,000 mg UNSCH PRN PO/TUBE 02/24/17 13:45 Potassium Phosphate 30 mmol/ Sodium Chloride 260 ml @ 42 mls/hr UNSCH PRN IV 02/24/17 13:45 (Pill Splitter) 1 ea UNSCH PRN OTHER 02/24/17 14:15 Sodium Chloride 1,000 ml @ 5 mls/hr Q24H IV 02/24/17 15:00 02/24/17 15:01 . Family History * Family history is significant for atherosclerotic heart disease. Both mother and father had myocardial infarctions. All 3 of the patient's siblings of heart disease. Diabetes also runs in the family. . Substance Use Tobacco: Patient started smoking at age 17 and continued to smoke until recently. At times he was a 2 pack per day smoker. Alcohol: Reports history of significant alcohol use during much of his adult life. No significant current use. Prescription med abuse: No known abuse of prescription medications. Illicits: No known use of illicits . Psychosocial History The patient is originally from [facility]. He has lived in [place] about 26 years. The patient has a 10th grade education. No service. 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 The patient was one time. His approximately 7 years ago he has no children. He had 3 siblings all of whom have predeceased him. The patient has been living in [facility] assisted living facility. . Spiritual/Cultural Factors The patient reports that druze and spirituality are an important part of his life. He identifies himself as a Yazdanism. He is open to farm machinery mechanic visits. . Living Will: Never completed Health Care Surrogate: Copy in medical record Durable Power of Career Center Advisor: Never completed Date completed: There is no living will on file. There is a written designation of health care surrogate scanned into the electronic medical record. It is dated 09/18/15. / Health Care Surrogate(s): The patient has designated the following as his health care surrogate... Gonzalez and/or Christoph Salvador [address] [facility] [address] He has designated his alternate to be.. Rafi Roberts [address] [place] [id number] These individuals are apparently friends. . Documented care wishes: There is no written documentation of patient's healthcare preferences or wishes. . Today's verbally stated goals: Patient indicates that he still wants to continue with aggressive care. However , he states that he does not want to be put on a ventilator. He indicates to me that he would like to be shocked. Apparently there was a different conversation earlier with a different provider. I will want to reconcile these. . Family/friends goals: No family/friends at bedside. . Ethical and Legal Issues Patient is currently capacitated to make his own health care decisions. There are no known ethical or legal conflicts at this time. . Physical Exam Vital Signs Date Time Temp Pulse Resp B/P (MAP) Pulse Ox O2 Delivery O2 Flow Rate FiO2 02/24/17 16:34 94 Nasal Cannula 4.00 02/24/17 16:21 96 35 02/24/17 16:00 99.0 107 23 127/58 (81) 91 02/24/17 13:17 95 35 02/24/17 12:00 98.4 91 18 116/73 (87) 97 02/24/17 10:26 95 45 02/24/17 09:50 95 17 118/77 (91) 97 BiPAP 02/24/17 09:00 96 45 02/24/17 07:19 71 20 202/99 (133) 96 Room Air 02/24/17 07:16 94 100 02/24/17 07:06 104 27 132/82 (99) 99 BiPAP 02/24/17 06:47 22 99 BiPAP 02/24/17 06:38 100 BiPAP 100 02/24/17 06:35 98 100 02/24/17 06:31 95 BiPAP 100 02/24/17 06:23 97.5 122/77 (92) 88 . 02/24/17 02/25/17 19:00 07:00 Intake Total 350 ml Balance 350 ml Intake IV Total 350 ml Exam CONSTITUTIONAL/GENERAL: This is an adequately nourished patient in an intensive care unit bed. He is awake, alert, and able to smile. Conversation is slightly difficult because of tachypnea. TUBES/LINES/DRAINS: Peripheral IV; Regalado catheter; SCDs; nasal cannula oxygen. SKIN: No jaundice, rashes, or lesions. Ecchymoses on upper extremities. No wounds seen anteriorly. Skin temperature appropriate. Not diaphoretic. HEAD: Atraumatic. Normocephalic. EYES: Pupils equal and round and reactive. Extraocular motions intact. No scleral icterus. No injection or drainage. Fundi not examined. ENT: Hearing grossly normal. Nose without bleeding or purulent drainage. Throat without visible erythema, exudates, masses, or lesions. NECK: Trachea midline. Supple, nontender. No palpable thyroid enlargement or nodularity. CARDIOVASCULAR: Irregularly irregular rate and rhythm without murmurs, gallops, or rubs. JVD is present.. Peripheral pulses symmetric. RESPIRATORY/CHEST: Symmetric, unlabored respirations. Breath sounds diminished bilaterally but significantly worse on left. Scattered rhonchi. No audible wheezes at time of my visit. GASTROINTESTINAL: Abdomen soft, non-tender, nondistended. No hepato-splenomegaly , or palpable masses. No guarding. Bowel sounds present. GENITOURINARY: Without palpable bladder distension. Regalado catheter in place. MUSCULOSKELETAL: Extremities without clubbing, cyanosis. 3-4+ edema bilateral lower extremities. No joint tenderness or effusion noted. No calf tenderness. No mottling or clubbing. LYMPHATICS: No palpable cervical or supraclavicular adenopathy. NEUROLOGICAL: Awake and alert. Motor and sensory grossly within normal limits. Follows commands. Cognitively sharp. Moves all extremities. PSYCHIATRIC: No obvious anxiety/depression. no apparent hallucinations or other psychotic thought process. . Diagnostic Tests Laboratory Laboratory Tests Test 02/24/17 06:35 02/24/17 06:47 02/24/17 13:00 02/24/17 14:02 White Blood Count 6.0 TH/MM3 (4.0-11.0) Red Blood Count 4.39 MIL/MM3 (4.50-5.90) Hemoglobin 13.5 GM/DL (13.0-17.0) Hematocrit 40.1 % (39.0-51.0) Mean Corpuscular Volume 91.2 FL (80.0-100.0) Mean Corpuscular Hemoglobin 30.8 PG (27.0-34.0) Mean Corpuscular Hemoglobin Concent 33.7 % (32.0-36.0) Red Cell Distribution Width 15.0 % (11.6-17.2) Platelet Count 183 TH/MM3 (150-450) Mean Platelet Volume 7.5 FL (7.0-11.0) Neutrophils (%) (Auto) 71.9 % (16.0-70.0) Lymphocytes (%) (Auto) 13.5 % (9.0-44.0) Monocytes (%) (Auto) 13.1 % (0.0-8.0) Eosinophils (%) (Auto) 0.2 % (0.0-4.0) Basophils (%) (Auto) 1.3 % (0.0-2.0) Neutrophils # (Auto) 4.3 TH/MM3 (1.8-7.7) Lymphocytes # (Auto) 0.8 TH/MM3 (1.0-4.8) Monocytes # (Auto) 0.8 TH/MM3 (0-0.9) Eosinophils # (Auto) 0.0 TH/MM3 (0-0.4) Basophils # (Auto) 0.1 TH/MM3 (0-0.2) CBC Comment DIFF FINAL Differential Comment Prothrombin Time 33.0 SEC (9.8-11.6) Prothromb Time International Ratio 3.3 RATIO Activated Partial Thromboplast Time 48.5 SEC (24.3-30.1) Blood Urea Nitrogen 27 MG/DL (7-18) Creatinine 1.18 MG/DL (0.60-1.30) Random Glucose 108 MG/DL (74-106) Total Protein 7.8 GM/DL (6.4-8.2) Albumin 3.1 GM/DL (3.4-5.0) Calcium Level 9.3 MG/DL (8.5-10.1) Alkaline Phosphatase 64 U/L (45-117) Aspartate Amino Transf (AST/SGOT) 126 U/L (15-37) Alanine Aminotransferase (ALT/SGPT) 69 U/L (12-78) Total Bilirubin 1.1 MG/DL (0.2-1.0) Sodium Level 130 MEQ/L (136-145) Potassium Level 4.0 MEQ/L (3.5-5.1) Chloride Level 84 MEQ/L (98-107) Carbon Dioxide Level 35.7 MEQ/L (21.0-32.0) Anion Gap 10 MEQ/L (5-15) Estimat Glomerular Filtration Rate 61 ML/MIN (>89) Total Creatine Kinase 257 U/L (39-308) Creatine Kinase MB 3.4 NG/ML (0.5-3.6) Troponin I 0.04 NG/ML (0.02-0.05) 0.04 NG/ML (0.02-0.05) B-Type Natriuretic Peptide 713 PG/ML (0-100) Blood Gas Puncture Site LT RADIAL RT RADIAL Blood Gas Patient Temperature 98.6 98.6 Blood Gas HCO3 35 mmol/L (22-26) 36 mmol/L (22-26) Blood Gas Base Excess 9.9 mmol/L (-2-2) 10.3 mmol/L (-2-2) Blood Gas Oxygen Saturation 98 % (90-100) 93 % (90-100) Arterial Blood pH 7.42 (7.380-7.420) 7.39 (7.380-7.420) Arterial Blood Partial Pressure CO2 55 mmHg (38-42) 60 mmHg (38-42) Arterial Blood Partial Pressure O2 142 mmHG (61-120) 74 mmHg (61-120) Arterial Blood Oxygen Content 18.4 Vol % (12.0-20.0) 16.5 Vol % (12.0-20.0) Arterial Blood Carboxyhemoglobin 1.1 % (0-4) 1.1 % (0-4) Arterial Blood Methemoglobin 0.5 % (0-2) 0.7 % (0-2) Blood Gas Hemoglobin 13.3 G/DL (12.0-16.0) 12.6 G/DL (12.0-16.0) Oxygen Delivery Device BIPAP BiPAP Blood Gas Ventilator Setting SEE COMMENTS [id number]/[id number] Blood Gas Inspired Oxygen 100 % 35 % Phosphorus Level 4.2 MG/DL (2.5-4.9) Test 02/24/17 16:30 Nasal Screen MRSA (PCR) MRSA DETECTED (NOT DETECT) . Result Diagram: 02/24/17 0635 02/24/17 0635 Microbiology Microbiology Date/Time Source Procedure Growth Status 02/24/17 06:35 Blood Peripheral Aerobic Blood Culture Pending Received 02/24/17 06:35 Blood Peripheral Anaerobic Blood Culture Pending Received 02/24/17 06:25 Blood Peripheral Aerobic Blood Culture Pending Received 02/24/17 06:25 Blood Peripheral Anaerobic Blood Culture Pending Received 02/24/17 06:50 Nasal Washing Influenza Types A,B Antigen (CESAR) - Final NEGATIVE FOR FLU A AND B ANTIGEN.... Complete . Imaging Last Impressions Chest X-Ray 02/24/17624 Signed Impressions: Service Date/Time: Friday, February 24, 2017 06:33 - CONCLUSION: 1. Left lower lobe consolidation and small bilateral pleural effusions. 2. Rounded lateral left midlung opacity may represent fluid within the major fissure or pulmonary parenchymal opacity. Lateral chest radiograph could be performed for further characterization. Nicolas Dsouza MD . Patient/Family Conference Present at Family Conference: Patient only. . Family Conference Time (mins): 45 Family Conference Location: Bedside Issues Discussed: * Palliative care role, purpose, approach * Additional medical, psychosocial, and spiritual history * Patients general health, functional status, and cognitive changes in the months leading up to the current hospitalization * Patient understanding of the current medical problems * Patient understanding of prognosis * Patients goals of medical treatment * Current medical treatment options and benefits/burdens of those options * Questions answered to the best of my ability * Palliative care contact information provided . Assessment and Plan Disease Oriented Problem List: (1) CHF exacerbation (2) Pleural effusion (3) COPD (chronic obstructive pulmonary disease) (4) Pneumonia (5) Adrenal adenoma (6) Tobacco abuse (7) Hyperlipidemia (8) Diabetes mellitus, type II (9) Chronic anticoagulation (10) History of atrial fibrillation (11) Microhematuria (12) BPH with urinary obstruction Symptom Scale: (1) Dyspnea 0-10 Scale: 8 (2) Generalized weakness 0-10 Scale: Unable to quantify Pertinent Non-Medical Issues Psychosocial: Lives in an assisted living facility. Patient is a . No children. Spiritual: Patient self identifies as Yazdanism. Yazidi and spirituality are important to him would welcome farm machinery mechanic visits. Legal: There is no living will on the chart per patient does have a written designation of health care surrogate which has been scanned into the electronic medical record. Ethical issues impacting care: Patient is capacitated to make his own health care decisions at this time. No known at that are legal conflicts at this time. . Important Contacts Gonzalez and/or Christoph Salvador (friends, health care surrogate) [address] [facility] [address] He friend has been designated his alternatesurrogate... Rafi Roberts [address] [place] [id number] . Prognosis Patient has had multiple hospitalizations for both COPD and congestive heart failure exacerbations. So far, he has managed to improve with treatment and get back to his assisted living facility. He does seem to be losing weight now. They're certainly more hospitalizations over the last year that there were in the preceding year. Overall there has been declined. I would not be surprised if patient within the next year. . Plan == Code Status: Apparently the patient has given different information on his preferred resuscitation status to different providers. He told me that he does not want to go on a ventilator. On the other hand, he said he would want both shock and chest compressions if necessary. I would like to repeat my conversation with patient on CODE STATUS when his breathing is a little more comfortable. I will not change his CODE STATUS from what the other physician as understood. == Decision making: Patient is currently capacitated to make his own health care decisions. Should he become incapacitated he has designated his friends, Gonzalez and/or Christoph Salvador, as his health care surrogate. == Goals of medical treatment.: Patient very much hopes that he will improve and get back to his assisted living facility. He is told me that he is not ready to stop fighting. He feels that his quality of life is worth fighting for it this point in time. == Symptoms * Pain: Patient is complaining of some buttock type pain. Denies pain elsewhere at this time. If necessary, patient could probably tolerate a very low dose opiate without having a significant detrimental effect on respiratory status. * Dyspnea: Dyspnea appears to be managed at this time with supplemental oxygen , nebulizer treatments, steroids, diuresis, antibiotics. Dyspnea is probably a combination of congestive heart failure and COPD exacerbation. As above if necessary, low-dose opiate and or a benzodiazepine could help alleviate air hunger without significantly compromising respiratory status. * Generalized weakness == Palliative care will try and have patient completed a living well prior to discharge. == If the patient confirms that he wants "no code" status, it will be important at time of discharge to send him home with a yellow, [facility] , DNR form == Palliative care we'll continue to follow to assist with symptom management and to further clarify goals of care as the clinical course evolves. Time Spent Total Floor Time (mins): 80 (Total floor time included chart review, patient examination, review of advance directive, bedside conversation with patient regarding his functional status, trajectory of decline, and goals of medical treatment. Time also spent on documentation.) Face to Face Time (mins): 55 >50% Counseling/Coord of Care: Yes Thank you for the opportunity to participate in the care of Mr. Ring. . . Attestation To help prompt me to consider important information that might be impacting today's encounter and assessment, information from prior notes written by myself or my colleagues may have been "brought forward" into today's note. My signature on this note, however, is an attestation that I personally performed the exam, history, and/or decision-making noted today, and, unless otherwise indicated, the interactions with patient, family, and staff as well as the review of records all occurred today. I also attest that the listed assessment and stated plan reflect my best clinical judgment today based on the combination of historical information, prior notes, and today's exam/ interactions. When time spent is documented, it refers only to time spent today by the signer, or if indicated, combined time spent today by collaborating physician/nurse practitioner. Sandeep Woods MD Feb 24, 2017 19:15
[2017-02-24] MEDS: METOPROLOL TARTRATE 25 MG TAB PO SCH (20:25)
--- NOTE | 2017-02-24 21:45 | EKG ---
Date Performed: 02/24/2017 Time Performed: 06:28:48 PTAGE: 71 years EKG: ATRIAL FIBRILLATION WITH RAPID VENTRICULAR RESPONSE POSSIBLE LEFT VENTRICULAR HYPERTROPHY P OSSIBLE SEPTAL MYOCARDIAL INFARCTION MODERATE T-WAVE ABNORMALITY, CONSIDER LATERAL ISCHEMIA ABNORMAL ECG PREVIOUS TRACING : 08/19/2016 12.10 Compared to the previous tracing Dual Chamber pacer is no l onger present DOCTOR: Declan Connell Interpretating Date/Time 02/24/2017 21:44:38
[2017-02-24] MEDS: CHLORHEXIDINE GLUCONATE 2 % 1 PACK (2 CLOTHS) TOP SCH (22:26)
[2017-02-25] VITALS (15 sets, daily range): BP systolic 102–126; BP diastolic 34–88; PULSE 94–110; RESP 17–35; TEMP 97.7–99; O2SAT 90–96
[2017-02-25] MEDS: RESP: ALBUTEROL 2.5 MG/IPRATROPIUM 0.5 MG NEB (SCH) INH ×4 (04:40→20:50)
--- NOTE | 2017-02-25 05:17 | RADRPT ---
EXAM DATE/TIME: 02/25/2017 03:47 [facility] COMPARISON: CHEST SINGLE AP, February 24, 2017, 6:33. INDICATIONS : Respiratory disease. MEDICAL HISTORY : Hypertension. Myocardial infarction. Chronic obstructive pulmonary disease. SURGICAL HISTORY : CABG. Pacemaker. ENCOUNTER: Subsequent ACUITY: 2 days PAIN SCORE: 7/10 LOCATION: Bilateral FINDINGS: Single AP view of the chest. AICD remains in place. Median sternotomy wires again seen. Bilateral pul monary parenchymal opacity left greater than right unchanged. Cardiac silhouette enlarged unchanged. Small bilateral pleural effusions unchanged. CONCLUSION: No significant interval change. Persistent left greater than right pulmonary parenchymal opacity and small bilateral pleural effusions. Nicolas Dsouza MD on February 25, 2017 at 5:15 Board Certified Radiologist. This report was verified electronically.
[2017-02-25] MEDS: CEFEPIME INJ 2,000 MG in SODIUM CHLORIDE 0.9% INJ 100 ML IV SCH ×3 (05:31→23:12)
[2017-02-25] MEDS: methylPREDNISolone SOD SUCC 40 MG/1 ML VIAL IV PUSH SCH ×2 (05:31→18:20)
[2017-02-25] MEDS: ISOSORBIDE MONONITRATE 30 MG TAB PO SCH (05:31)
[2017-02-25 05:51] LABS: HEMATOCRIT 40.1 % (39.0-51.0); HEMOGLOBIN 13.4 GM/DL (13.0-17.0); MEAN CELL VOLUME 91.2 FL (80.0-100.0); MEAN CORPUSCULAR HEMOGLOBIN 30.4 PG (27.0-34.0); MEAN CORPUSCULAR HGB CONC 33.4 % (32.0-36.0); MEAN PLATELET VOLUME 7.9 FL (7.0-11.0); PLATELET COUNT 192 TH/MM3 (150-450); RED CELL DISTRIBUTION WIDTH 14.7 % (11.6-17.2); WHITE BLOOD COUNT 5.6 TH/MM3 (4.0-11.0)
[2017-02-25 06:03] LABS: INTERNATIONAL NORMALIZED RATIO 5.6 RATIO; PROTHROMBIN TIME - PATIENT 55.8 SEC (9.8-11.6)
[2017-02-25 06:20] LABS: BICARBONATE 37.4 MEQ/L (21.0-32.0); CALCIUM 9.7 MG/DL (8.5-10.1); CREATININE 1.14 MG/DL (0.60-1.30)
[2017-02-25 06:21] LABS: PHOSPHORUS 3.8 MG/DL (2.5-4.9)
[2017-02-25] MEDS: INSULIN ASPART SUPPLEMENTAL SCALE SQ SCH ×4 (06:51→21:00)
[2017-02-25] MEDS: DOCUSATE SODIUM 50 MG/SENNA 8.6 MG TAB PO SCH ×2 (08:35→19:49)
[2017-02-25] MEDS: AZITHROMYCIN INJ 500 MG in SODIUM CHLOR 0.9% 250 ML INJ 250 ML IV SCH (08:35)
[2017-02-25] MEDS: LISINOPRIL 5 MG TAB PO SCH (08:36)
[2017-02-25] MEDS: SODIUM CHLORIDE 0.9% FLUSH 10 ML FLUSH IV FLUSH SCH ×2 (08:36→19:49)
[2017-02-25] MEDS: GEMFIBROZIL 600 MG TAB PO SCH ×2 (08:36→15:44)
[2017-02-25] MEDS: SPIRONOLACTONE 25 MG TAB PO SCH (08:36)
[2017-02-25] MEDS: METOPROLOL TARTRATE 25 MG TAB PO SCH ×2 (08:36→19:49)
[2017-02-25] MEDS: FAMOTIDINE 20 MG/2 ML VIAL IV PUSH SCH ×2 (08:36→19:49)
[2017-02-25] MEDS ORDERED: PHYTONADIONE INJ 10 MG in DEXTROSE 5% IN WATER INJ 50 ML IV ONE ×2 (10:00)
[2017-02-25] MEDS ORDERED: Vancomycin Consult Pharmacy 1 EA OTHER SCH (10:30)
[2017-02-25] MEDS ORDERED: FUROSEMIDE 100 MG/10 ML VIAL IV PUSH ONE (10:45)
--- NOTE | 2017-02-25 10:48 | HHI.CCPN ---
Subjective Remarks/Hospital Course This is a 71-year-old male with a PMH of CHF, COPD on home O2 @ 4LPM, with two- pillow orthopnea was brought in by EMS from home for evaluation of 2 days of worsening shortness of breath, no appetite, and malaise. Per EMS report the patient had severe respiratory distress with poor air movement bilaterally with wheezes bilaterally with an O2 saturation in the 80s on room air. They administered 2 albuterol nebulized treatments as well as 125 mg of IV Solu- Medrol en route to the hospital. Upon arrival to the ED, the patient was in moderate respiratory distress, speaking a few words at a time with very poor air movement bilaterally. He notes only minimal improvement with the treatment he had received by EMS. He denied chest pain. He has had a nonproductive cough. He has not noted any fevers or chills. He is also had some worsening bilateral lower extremity edema. His environmental marketing representative is Dr. Bolanos. In the ED the patient was noted to be in A. fib RVR heart rate 101, and was placed on BiPAP, and given 40 mg of Lasix, and 40 mg of methylprednisolone with improvement of his symptoms. Critical care medicine was consulted. Subjective: 02/25: Afebrile. Patient intermittently changing between O2 via nasal cannula 4-6 L, and BiPAP 14/5. A chin diureses greater than 2 L in the last 24 hours. Lasix again given this a.m.. Blood cultures revealed gram-positive cocci vancomycin added to antibiotic regimen. The patient now tolerating a diet. He is anxious this a.m. Paxil 10 mg daily patient's home medication resumed. Patient's INR was noted to be significantly elevated to 5.6. Vitamin K 10 mg 1 dose IV given. The patient continues in A. fib rate controlled. Objective Vital Signs Date Time Temp Pulse Resp B/P (MAP) Pulse Ox O2 Delivery O2 Flow Rate FiO2 02/25/17 08:20 90 35 02/25/17 04:00 99.0 98 26 108/74 (85) 02/24/17 21:07 Nasal Cannula 4.00 Intake and Output 02/25/17 02/25/17 02/26/17 08:00 16:00 00:00 Intake Total 494 ml Output Total 825 ml Balance -331 ml Result Diagram: 02/25/17 0456 02/25/17 0456 Other Results Microbiology Date/Time Source Procedure Growth Status 02/24/17 06:50 Nasal Washing Influenza Types A,B Antigen (CESAR) - Final NEGATIVE FOR FLU A AND B ANTIGEN.... Complete Laboratory Tests Test 02/24/17 13:00 Blood Gas Puncture Site RT RADIAL Blood Gas Patient Temperature 98.6 Blood Gas HCO3 36 mmol/L (22-26) Blood Gas Base Excess 10.3 mmol/L (-2-2) Blood Gas Oxygen Saturation 93 % (90-100) Arterial Blood pH 7.39 (7.380-7.420) Arterial Blood Partial Pressure CO2 60 mmHg (38-42) Arterial Blood Partial Pressure O2 74 mmHg (61-120) Arterial Blood Oxygen Content 16.5 Vol % (12.0-20.0) Arterial Blood Carboxyhemoglobin 1.1 % (0-4) Arterial Blood Methemoglobin 0.7 % (0-2) Blood Gas Hemoglobin 12.6 G/DL (12.0-16.0) Oxygen Delivery Device BiPAP Blood Gas Ventilator Setting [id number] Blood Gas Inspired Oxygen 35 % Imaging Last Impressions Chest X-Ray 02/24/17 0625 Signed Impressions: Service Date/Time: Friday, February 24, 2017 06:33 - CONCLUSION: 1. Left lower lobe consolidation and small bilateral pleural effusions. 2. Rounded lateral left midlung opacity may represent fluid within the major fissure or pulmonary parenchymal opacity. Lateral chest radiograph could be performed for further characterization. Nicolas Dsouza MD Objective Remarks GENERAL: Well-developed well-nourished gentleman looking older than stated age currently on BiPAP SKIN: Warm and dry. HEAD: Atraumatic. Normocephalic. EYES: Pupils equal and round. No scleral icterus. No injection or drainage. ENT: No nasal bleeding or discharge. Mucous membranes pink and moist. NECK: Trachea midline. No JVD. CARDIOVASCULAR: Normal rate, irregular rhythm. RESPIRATORY: No accessory muscle use. Mild expiratory wheezing bilaterally. Breath sounds equal bilaterally. Currently on BiPAP 14/5/0.35 GASTROINTESTINAL: Abdomen soft, non-tender, nondistended. No guarding. Normoactive bowel sounds MUSCULOSKELETAL: Extremities without clubbing, cyanosis, or edema. No obvious deformities. 3+ pedal / lower extremity edema NEUROLOGICAL: Awake and alert. RASS 0. No gross focal/sensory deficits. Follows commands in all 4 extremities. Urinary Catheter: Yes Regalado insert reason: ICU Pt Getting Diuretics Date of Insertion: Feb 24, 2017 A/P Problem List: (1) Respiratory distress ICD Code: R06.00 - Dyspnea, unspecified Status: Acute (2) Hypoxia ICD Code: R09.02 - Hypoxemia Status: Acute (3) Demand ischemia ICD Code: I24.8 - Other forms of acute ischemic heart disease; R65.20 - Severe sepsis without septic shock Status: Acute (4) Sepsis ICD Code: A41.9 - Sepsis, unspecified organism Status: Acute (5) Chronic anticoagulation ICD Code: Z79.01 - vermin exterminator (current) use of anticoagulants Status: Chronic (6) CHF (congestive heart failure) ICD Code: I50.9 - Heart failure, unspecified Status: Acute (7) COPD (chronic obstructive pulmonary disease) ICD Code: J44.9 - Chronic obstructive pulmonary disease, unspecified Status: Chronic (8) Acute exacerbation of CHF (congestive heart failure) ICD Code: I50.9 - Heart failure, unspecified Status: Acute (9) Pneumonia ICD Code: J18.9 - Pneumonia, unspecified organism Status: Acute (10) Pulmonary edema ICD Code: J81.1 - Chronic pulmonary edema Status: Acute (11) CHF exacerbation ICD Code: I50.9 - Heart failure, unspecified Status: Acute (12) History of atrial fibrillation ICD Code: Z86.79 - History of atrial fibrillation Status: Acute (13) Diabetes mellitus, type II ICD Code: E11.9 - Type 2 diabetes mellitus Status: Acute (14) Hyperlipidemia ICD Code: E78.5 - Hyperlipidemia Status: Acute Assessment and Plan This is a 71-year-old male with past medical history significant for ischemic cardiomyopathy, with AICD. With a medical history significant for COPD and now presents with exacerbation of CHF and probable pneumonia. Discussion with patient he is a DNR however would like to be intubated if his respiratory status declines. Palliative medicine consulted for clarification of the fine goals of treatment. Plan by systems: Neurologic: Diabetic neuropathy Avoid long-acting sedative type medications Tylenol 650 mg every 6 hours when necessary for pain and/or temperature > 101.0 Patient normally on gabapentin 1200 mg 3 times a day, on hold Resume Paroxetine 10 mg/day Respiratory: COPD HCAP Pulmonary edema Home O2 dependency @4LPM Maintain O2 sat greater than 92% Continue BiPAP currently at 14/7 FiO2 of 0.45%, until you to wean FiO2 Duo nebs every 6 hours scheduled Patient received methylprednisolone 40 mg 1 dose in ED, continue methylprednisolone 40 mg twice a day Lasix 40 mg twice a day 02/24 chest x-ray Left lower lobe consolidation, a centimeter opacity lateral left midlung, small bilateral pleural effusions Patient's baseline is 2 pillow orthopnea with 4 L home O2 dependency Repeat chest x-ray -unchanged Cardiovascular: CHF exacerbation Ischemic cardiomyopathy with AICD A. fib RVR-resolved History of hypertension A. fib rate controlled Initial presentation patient in A. fib RVR HR 101, upon application of BiPAP HR normalized 80s Initial troponin 0.04, continue to follow trend Echo 02/09/16 EF 40-45%, mild MR, trace AR BMP 713-> 1072 Continue Isordil 30 mg/day, metoprolol 25 mg twice a day, lisinopril 5 mg/day and spironolactone 25 mg/day Renal: Renal insufficiency Maintain Regalado catheter patient receiving diuretics to measure adequate urinary output -- Strict I/Os FEN/GI: Hypercholesterolemia GERD Electrolyte derangement Heart healthy diet Zofran for nausea Famotidine GI prophylaxis Sodium 130, possible chronic continue to monitor Replete electrolytes per ICU protocol Continue gemfibrozil 600 mg twice a day Heme/ID: Chronic anticoagulation Patient normally on Coumadin 5 mg/day-currently on hold INR 3.3-> 5.6 today, 10 mg vitamin K IV x 1 dose Repeat INR in a.m.-maintain INR 2.0-3.0 F/U urine culture 02/25 blood zupbawzk-xews-olcumned cocci Obtain pneumococcal antigen 02/24 Influenza A- negative Endocrine: Diabetes mellitus Glucose monitoring per ICU protocol Hold metformin -- SSI Prophylaxis: GI Prophylaxis Famotidine BID DVT Prophylaxis -- SCDs Patient on chronic anticoagulation, Coumadin, INR 3.3, currently supratherapeutic Lines: Peripheral IVs 2. Central line if indicated Dispo: my billing statement This patient remains critically ill with one or more organ systems which are or may become a threat to life. I have spent in excess of 37 minutes discontinuously in the care and management of this patient. This time is exclusive of procedures, and includes, but is not limited to, evaluation of the patient, review of the medical record, discussions with family, consultants, nursing staff, or respiratory therapy, and documentation in the medical record. Physician Esther Garcia Problem Qualifiers (1) Pneumonia: Qualified Codes: J18.1 - Lobar pneumonia, unspecified organism (2) Pulmonary edema: Qualified Codes: J81.0 - Acute pulmonary edema Esther Garcia MD Feb 25, 2017 10:48
[2017-02-25] MEDS: PARoxetine HCL 20 MG TAB PO SCH (12:21)
[2017-02-25] MEDS: VANCOMYCIN 1,500 MG/NS 500 ML IV SCH ×2 (13:43)
[2017-02-25] MEDS: SODIUM CHLOR 0.9% 1000 ML INJ 1,000 ML IV SCH (15:00)
--- NOTE | 2017-02-25 16:04 | MB ---
cc: MIRIAM VICENTE FRANKLYN F. MD DATE OF CONSULTATION: 02/25/[address] Garcia. REASON FOR CONSULTATION Management of gram-positive cocci bacteremia. HISTORY OF PRESENT ILLNESS This is a 71-year-old white male who was admitted to the hospital on 09/24 with respiratory distress. The patient reportedly had two days of worsening shortness of breath. He was admitted to the hospital and was found to have wheezing and oxygen desaturation. He has been started on medications and also on antibiotics. He is currently on BiPAP at 35%. He was felt to likely have COPD exacerbation or pneumonia. Chest x-ray on admission shows left lower lobe consolidation and small bilateral pleural effusions. The patient has not been expectorating any sputum. He also has been treated with Lasix. Currently is alert and awake. He does communicate but it is difficult to maintain prolonged conversation because he is on the BiPAP mask. Additional information is obtained from the medical record. He is noted to be desaturating whenever he does activity. PAST MEDICAL HISTORY 1. COPD. 2. Anxiety. 3. Depression. 4. Congestive heart failure. 5. Coronary artery disease. 6. Diabetes mellitus. 7. Gastroesophageal reflux disease. 8. Hypertension. 9. Seizure disorder. 10. History of coronary artery bypass graft surgery. 11. Prostatectomy. 12. History of AICD in 2009. 13. Atrial fibrillation. ALLERGIES PHENYTOIN, DIVALPROEX SODIUM, TETANUS TOXOID. MEDICATIONS 1. Vancomycin. 2. Lasix. 3. Paxil. 4. Prinivil. 5. Aldactone. 6. Azithromycin. 7. Cefepime. 8. Imdur. 9. Methylprednisolone. 10. Insulin. 11. Lopid. SOCIAL HISTORY The patient smokes five cigarettes a day. No alcohol. No illicit drugs. FAMILY HISTORY Noncontributory. REVIEW OF SYSTEMS Difficult to obtain because the patient is on the BiPAP. Remarkable for shortness of breath and mild chest pain. PHYSICAL EXAMINATION GENERAL: This is a well-developed male who is in no acute distress. He is awake and alert. He is on BiPAP oxygen administration. VITAL SIGNS: Temperature 99 degrees. HEENT: Head is atraumatic. Extraocular movements grossly intact. Pupils reactive to light. No icterus. Oropharynx difficult to assess because of the BiPAP mask in place. NECK: No adenopathy or swelling. LUNGS: Clear breath sounds which are decreased at the bases. HEART: Regular, S1 and S2 without murmurs, rubs or gallops. ABDOMEN: Bowel sounds present, soft, and no tenderness appreciated. RECTAL: Not performed. EXTREMITIES: No clubbing, cyanosis or edema. SKIN: No diffuse rash. NEUROLOGIC: Nonfocal. PSYCHIATRIC: The patient is calm and cooperative. LABORATORY DATA WBC five point of the wound in 192, hemoglobin 13.4 mL, creatinine 1.14, BUN 31, sodium 130 and removal. LABORATORY DATA WBC 5.6, platelets 192, hemoglobin 13.4, creatinine 1.14, BUN 31, sodium 130. Blood culture: One bottle from one set has gram-positive cocci in the aerobic, and a second bottle from a second set has gram-positive cocci in the anaerobic culture. IMPRESSION 1. Bacteremia due to gram-positive cocci. 2. Pneumonia. 3. Respiratory distress with hypoxemia. Given that the blood cultures show up in different sets with one bottle positive and different bottles one being aerobic and one being anaerobic, it is difficult to tell whether this is a real or pseudo-bacteremia. The patient has no fever and no elevation in white blood cell count. However, given the acuity of his illness he should be continued with the antibiotic treatment and blood cultures repeated, and the current blood culture followed up for identity and sensitivity of the organism and clinical status monitored. RECOMMENDATIONS 1. Continue Vancomycin. 2. Continue cefepime and azithromycin for pulmonary coverage. 3. Continue to monitor blood cultures. 4. Obtain additional blood cultures. 5. Monitor clinical status. Thank you for this consultation. The patient's progress will be followed and the blood culture will be followed as well, and additional antibiotics will be given upon followup. Jesus Kilpatrick MD FD/BEVERLY /12:13 PM /3:18 PM
--- NOTE | 2017-02-25 18:08 | MB ---
cc: MATT QUARLES MD DATE OF CONSULTATION: 02/25/2017. REASON FOR CONSULTATION: COPD exacerbation and respiratory failure. HISTORY OF PRESENT ILLNESS: The patient is a 71-year-old gentleman who is known to have a history of congestive heart failure, severe COPD oxygen-dependent on four liters per minute who came into the hospital because he was having two to three days of significant shortness of breath. Right now, the patient is currently on BiPAP. He is a little better with the BiPAP. He is at 35% oxygen because the patient does desaturate with any exertion. The patient continues to have wheezing. He continues to be short of breath. He does have some coughing. He does not have any chest pain. No hemoptysis. He reported that he does not follow up with a airport representative. Past medical history and medications reviewed. REVIEW OF SYSTEMS: Negative except for what is mentioned in the history of present illness. PHYSICAL EXAMINATION: VITAL SIGNS: Temperature of 98.9, pulse 96, respiratory rate is low 30s, blood pressure is 102/64, he is satting 96% on 35% FIO2. HEAD AND NECK: Normocephalic and atraumatic. BiPAP on. Trachea is midline. LUNGS: Decreased breath sounds bilaterally significantly without any wheezing heard. HEART: Normal S1 and S2. ABDOMEN: Soft. It is not tender. EXTREMITIES: No significant edema or cyanosis. NEUROLOGIC: The patient is alert. He moves all extremities. I reviewed his chest x-ray and I reviewed all his labs. His white blood cell count is 5.6, hemoglobin 13.4. Sodium is 130, potassium 4.5, BUN 31, creatinine is 1.14, BNP 713. ASSESSMENT AND PLAN: 1. Acute respiratory failure. 2. Severe COPD exacerbation. 3. Congestive heart failure. I do believe the patient is improving slowly. However, I do believe his overall prognosis is not very good. I do recommend to continue the current systemic steroids and antibiotics. Continue bronchodilators. I would recommend to wean off FIO2 to keep 02 saturations more than or equal to 89%. I would defer the rest of the medical management to the online merchandising specialist, and I will continue to follow with you. Thank you for this consultation. MD DEWAYNE Stern/LIZBETH /4:56 PM /5:46 PM
[2017-02-25 18:25] LABS: LACTIC ACID SEPSIS PROTOCOL 2.4 mmol/L (0.4-2.0)
[2017-02-25] MEDS: FUROSEMIDE 40 MG/4 ML VIAL IV PUSH SCH (19:49)
[2017-02-25] MEDS ORDERED: DEXMEDETOMIDINE 200 MCG/50 ML Premix IV PRN (23:45)
[2017-02-26] VITALS (18 sets, daily range): BP systolic 116–134; BP diastolic 73–92; PULSE 86–102; RESP 20–46; TEMP 97.7–100.2; O2SAT 90–96
[2017-02-26] MEDS: DEXMEDETOMIDINE 200 MCG in NS 48 ML IV PRN ×4 (00:03→05:43)
[2017-02-26] MEDS: ALBUMIN 5% INJ 500 ML IV SCH ×3 (00:03→22:58)
[2017-02-26] MEDS: CHLORHEXIDINE GLUCONATE 2 % 1 PACK (2 CLOTHS) TOP SCH (02:21)
[2017-02-26] MEDS ORDERED: LORazepam 2 MG/ML VIAL IV ONE (02:30)
[2017-02-26] MEDS ORDERED: HALOPERIDOL LACTATE 5 MG/ML AMP IV ONE (02:30)
[2017-02-26] MEDS: RESP: ALBUTEROL 2.5 MG/IPRATROPIUM 0.5 MG NEB (SCH) INH ×4 (05:01→20:55)
[2017-02-26] MEDS: methylPREDNISolone SOD SUCC 40 MG/1 ML VIAL IV PUSH SCH ×2 (05:09→17:42)
[2017-02-26] MEDS: GEMFIBROZIL 600 MG TAB PO SCH ×2 (05:09→17:42)
[2017-02-26] MEDS: ISOSORBIDE MONONITRATE 30 MG TAB PO SCH (05:09)
[2017-02-26 06:01] LABS: INTERNATIONAL NORMALIZED RATIO 1.6 RATIO; PROTHROMBIN TIME - PATIENT 15.9 SEC (9.8-11.6)
[2017-02-26 06:02] LABS: HEMATOCRIT 41.3 % (39.0-51.0); MEAN CORPUSCULAR HEMOGLOBIN 31.1 PG (27.0-34.0); MEAN CORPUSCULAR HGB CONC 33.8 % (32.0-36.0); MEAN PLATELET VOLUME 8.8 FL (7.0-11.0); PLATELET COUNT 187 TH/MM3 (150-450); RED BLOOD COUNT 4.49 MIL/MM3 (4.50-5.90); RED CELL DISTRIBUTION WIDTH 14.5 % (11.6-17.2); WHITE BLOOD COUNT 8.3 TH/MM3 (4.0-11.0)
[2017-02-26] MEDS: CEFEPIME INJ 2,000 MG in SODIUM CHLORIDE 0.9% INJ 100 ML IV SCH ×3 (06:11→22:58)
[2017-02-26 06:29] LABS: BICARBONATE 32.7 MEQ/L (21.0-32.0); CALCIUM 9.2 MG/DL (8.5-10.1); CREATININE 1.39 MG/DL (0.60-1.30); MAGNESIUM 2.1 MG/DL (1.5-2.5); PHOSPHORUS 5.1 MG/DL (2.5-4.9)
[2017-02-26] MEDS: INSULIN ASPART SUPPLEMENTAL SCALE SQ SCH ×4 (08:00→19:48)
[2017-02-26] MEDS: AZITHROMYCIN INJ 500 MG in SODIUM CHLOR 0.9% 250 ML INJ 250 ML IV SCH (08:27)
[2017-02-26] MEDS: FAMOTIDINE 20 MG/2 ML VIAL IV PUSH SCH ×2 (08:27→19:26)
[2017-02-26] MEDS: FUROSEMIDE 40 MG/4 ML VIAL IV PUSH SCH ×2 (08:28→19:27)
[2017-02-26] MEDS: SODIUM CHLORIDE 0.9% FLUSH 10 ML FLUSH IV FLUSH SCH ×2 (08:28→19:27)
[2017-02-26] MEDS: METOPROLOL TARTRATE 25 MG TAB PO SCH ×2 (09:00→19:26)
[2017-02-26] MEDS: DOCUSATE SODIUM 50 MG/SENNA 8.6 MG TAB PO SCH ×2 (09:00→19:26)
[2017-02-26] MEDS: SPIRONOLACTONE 25 MG TAB PO SCH (09:00)
[2017-02-26] MEDS: LISINOPRIL 5 MG TAB PO SCH (09:00)
[2017-02-26] MEDS: PARoxetine HCL 20 MG TAB PO SCH (09:00)
--- NOTE | 2017-02-26 09:26 | HHI.CCPN ---
Subjective Remarks/Hospital Course This is a 71-year-old male with a PMH of CHF, COPD on home O2 @ 4LPM, with two- pillow orthopnea was brought in by EMS from home for evaluation of 2 days of worsening shortness of breath, no appetite, and malaise. Per EMS report the patient had severe respiratory distress with poor air movement bilaterally with wheezes bilaterally with an O2 saturation in the 80s on room air. They administered 2 albuterol nebulized treatments as well as 125 mg of IV Solu- Medrol en route to the hospital. Upon arrival to the ED, the patient was in moderate respiratory distress, speaking a few words at a time with very poor air movement bilaterally. He notes only minimal improvement with the treatment he had received by EMS. He denied chest pain. He has had a nonproductive cough. He has not noted any fevers or chills. He is also had some worsening bilateral lower extremity edema. His principal technical architect is Dr. Bolanos. In the ED the patient was noted to be in A. fib RVR heart rate 101, and was placed on BiPAP, and given 40 mg of Lasix, and 40 mg of methylprednisolone with improvement of his symptoms. Critical care medicine was consulted. Subjective: 02/25: Afebrile. Patient intermittently changing between O2 via nasal cannula 4-6 L, and BiPAP 14/5. A chin diureses greater than 2 L in the last 24 hours. Lasix again given this a.m.. Blood cultures revealed gram-positive cocci vancomycin added to antibiotic regimen. The patient now tolerating a diet. He is anxious this a.m. Paxil 10 mg daily patient's home medication resumed. Patient's INR was noted to be significantly elevated to 5.6. Vitamin K 10 mg 1 dose IV given. The patient continues in A. fib rate controlled. 02/26: Overnight the patient became extremely anxious ,agitated, removing BiPAP apparatus in oxygen mask. The patient required Precedex infusion to maintain BiPAP apparatus. The patient was effectively diuresed greater than 2 L yesterday. This x-ray pending. Repeat blood cultures pending. Supratherapeutic Coumadin corrected, current INR 1.5 plan to restart Coumadin for target INR between 2.0-3.0. Objective Vital Signs Date Time Temp Pulse Resp B/P (MAP) Pulse Ox O2 Delivery O2 Flow Rate FiO2 02/26/17 08:44 91 35 02/26/17 06:00 99 02/26/17 04:00 99.9 20 117/83 (94) 02/25/17 19:00 Bi-Pap 02/24/17 21:07 4.00 Intake and Output 02/26/17 02/26/17 02/26/17 07:59 15:59 23:59 Intake Total 376 ml Output Total 650 ml Balance -274 ml Result Diagram: 02/26/17 0527 02/26/17 0527 Other Results Microbiology Date/Time Source Procedure Growth Status 02/24/17 06:50 Nasal Washing Influenza Types A,B Antigen (CESAR) - Final NEGATIVE FOR FLU A AND B ANTIGEN.... Complete Imaging Last Impressions Chest X-Ray 02/24/17 0625 Signed Impressions: Service Date/Time: Friday, February 24, 2017 06:33 - CONCLUSION: 1. Left lower lobe consolidation and small bilateral pleural effusions. 2. Rounded lateral left midlung opacity may represent fluid within the major fissure or pulmonary parenchymal opacity. Lateral chest radiograph could be performed for further characterization. Nicolas Dsouza MD Objective Remarks GENERAL: Well-developed well-nourished gentleman looking older than stated age currently on BiPAP sedated on Precedex infusion SKIN: Warm and dry. HEAD: Atraumatic. Normocephalic. EYES: Pupils equal and round. No scleral icterus. No injection or drainage. ENT: No nasal bleeding or discharge. Mucous membranes pink and moist. NECK: Trachea midline. No JVD. CARDIOVASCULAR: Normal rate, irregular rhythm. RESPIRATORY: No accessory muscle use. Mild expiratory wheezing bilaterally. Breath sounds equal bilaterally. Currently on BiPAP 14/5/0.35 GASTROINTESTINAL: Abdomen soft, non-tender, nondistended. No guarding. Normoactive bowel sounds MUSCULOSKELETAL: Extremities without clubbing, cyanosis, or edema. No obvious deformities. 3+ pedal / lower extremity edema NEUROLOGICAL: Awake and alert. RASS 0. No gross focal/sensory deficits. Follows commands in all 4 extremities. Date of Insertion: Feb 24, 2017 A/P Problem List: (1) Respiratory distress ICD Code: R06.00 - Dyspnea, unspecified Status: Acute (2) Hypoxia ICD Code: R09.02 - Hypoxemia Status: Acute (3) Demand ischemia ICD Code: I24.8 - Other forms of acute ischemic heart disease; R65.20 - Severe sepsis without septic shock Status: Acute (4) Sepsis ICD Code: A41.9 - Sepsis, unspecified organism Status: Acute (5) Chronic anticoagulation ICD Code: Z79.01 - senior care (current) use of anticoagulants Status: Chronic (6) CHF (congestive heart failure) ICD Code: I50.9 - Heart failure, unspecified Status: Acute (7) COPD (chronic obstructive pulmonary disease) ICD Code: J44.9 - Chronic obstructive pulmonary disease, unspecified Status: Chronic (8) Acute exacerbation of CHF (congestive heart failure) ICD Code: I50.9 - Heart failure, unspecified Status: Acute (9) Pneumonia ICD Code: J18.9 - Pneumonia, unspecified organism Status: Acute (10) Pulmonary edema ICD Code: J81.1 - Chronic pulmonary edema Status: Acute (11) CHF exacerbation ICD Code: I50.9 - Heart failure, unspecified Status: Acute (12) History of atrial fibrillation ICD Code: Z86.79 - History of atrial fibrillation Status: Acute (13) Diabetes mellitus, type II ICD Code: E11.9 - Type 2 diabetes mellitus Status: Acute (14) Hyperlipidemia ICD Code: E78.5 - Hyperlipidemia Status: Acute Assessment and Plan This is a 71-year-old male with past medical history significant for ischemic cardiomyopathy, with AICD. With a medical history significant for COPD and now presents with exacerbation of CHF and probable pneumonia. Discussion with patient he is a DNR however would like to be intubated if his respiratory status declines. Palliative medicine consulted for clarification to define goals of treatment. Plan by systems: Neurologic: Diabetic neuropathy Avoid long-acting sedative type medications Patient currently on Precedex infusion Tylenol 650 mg every 6 hours when necessary for pain and/or temperature > 101.0 Patient normally on gabapentin 1200 mg 3 times a day, on hold Paroxetine 10 mg/day Respiratory: COPD exacerbation HCAP Pulmonary edema Home O2 dependency @4LPM Maintain O2 sat greater than 92% Continue BiPAP currently at 14/7 FiO2 of 0.35%, until you to wean FiO2 Duo nebs every 6 hours scheduled Patient received methylprednisolone 40 mg 1 dose in ED, continue methylprednisolone 40 mg twice a day Continue Lasix 40 mg twice a day 1/5 chest x-ray Left lower lobe consolidation, a centimeter opacity lateral left midlung, small bilateral pleural effusions Patient's baseline is 2 pillow orthopnea with 4 L home O2 dependency F/U repeat chest x-ray -unchanged Cardiovascular: CHF exacerbation Ischemic cardiomyopathy with AICD A. fib RVR-resolved History of hypertension A. fib rate controlled Initial presentation patient in A. fib RVR HR 101, upon application of BiPAP HR normalized 80s Initial troponin 0.04 Lasix 40 mg continued BID Echo 02/09/16 EF 40-45%, mild MR, trace AR Continue Isordil 30 mg/day, metoprolol 25 mg twice a day, lisinopril 5 mg/day and spironolactone 25 mg/day Renal: Renal insufficiency Maintain Regalado catheter patient receiving diuretics to measure adequate urinary output -- Strict I/Os FEN/GI: Hypercholesterolemia GERD Electrolyte derangement Nothing by mouth except meds-insert NG tube, for feeding and medication administration Zofran for nausea Famotidine GI prophylaxis Sodium 130-> 133 , improved. Reveals hospitalizations patient noted to have sodium levels 131-135 Replete electrolytes per ICU protocol Continue gemfibrozil 600 mg twice a day Heme/ID: Chronic anticoagulation INR normalized, will reinitiate Coumadin for targeted therapeutic level Repeat INR in a.m.-maintain INR 2.0-3.0 F/U urine culture 02/25 blood [id number] cocci ID [id number] recommendations-patient continues on vancomycin, cefepime and azithromycin Obtain pneumococcal antigen 02/24 Influenza A- negative Endocrine: Diabetes mellitus Glucose monitoring per ICU protocol Hold metformin -- SSI Prophylaxis: GI Prophylaxis Famotidine BID DVT Prophylaxis -- SCDs Patient on chronic anticoagulation, Coumadin, INR 3.3, currently supratherapeutic Lines: Peripheral IVs 2. Central line if indicated Dispo: my billing statement This patient remains critically ill with one or more organ systems which are or may become a threat to life. I have spent in excess of 39 minutes discontinuously in the care and management of this patient. This time is exclusive of procedures, and includes, but is not limited to, evaluation of the patient, review of the medical record, discussions with family, consultants, nursing staff, or respiratory therapy, and documentation in the medical record. Physician Esther Garcia Problem Qualifiers (1) Pneumonia: Qualified Codes: J18.1 - Lobar pneumonia, unspecified organism (2) Pulmonary edema: Qualified Codes: J81.0 - Acute pulmonary edema Esther Garcia MD Feb 26, 2017 09:26
[2017-02-26] MEDS: DEXMEDETOMIDINE INJ 1,000 MCG in SODIUM CHLOR 0.9% 250 ML INJ 240 ML IV PRN ×2 (11:31→20:10)
[2017-02-26] MEDS: VANCOMYCIN 1,500 MG/NS 500 ML IV SCH ×2 (11:32)
--- NOTE | 2017-02-26 12:16 | RADRPT ---
EXAM DATE/TIME: 02/26/2017 11:20 [facility] COMPARISON: CHEST SINGLE AP, February 25, 2017, 3:47. INDICATIONS : Shortness of breath. MEDICAL HISTORY : Hypertension. Chronic obstructive pulmonary disease. Myocardial infarction. SURGICAL HISTORY : CABG. Pacemaker. ENCOUNTER: Initial ACUITY: 1 day PAIN SCORE: Non-responsive. LOCATION: Bilateral chest FINDINGS: The heart is enlarged. Small bilateral pleural effusions are noted. Scattered patchiness is noted dhara aterally and is stable. Left subclavian pacemaker is unchanged. CONCLUSION: No significant change from 02/25/17. Ahmet Jeffers MD on February 26, 2017 at 12:12 Board Certified Radiologist. This report was verified electronically.
--- NOTE | 2017-02-26 13:04 | HHI.IDPN ---
Note Infectious Disease Note Patient is on BIPAP. Low grade fever. Noted to be agitated earlier and to have increased RR and decreased saturation. 71-year-old white male who was admitted to the hospital on 09/24 with respiratory distress. The patient reportedly had two days of worsening shortness of breath. He was admitted to the hospital and was found to have wheezing and oxygen desaturation. PAST MEDICAL HISTORY 1. COPD. 2. Anxiety. 3. Depression. 4. Congestive heart failure. 5. Coronary artery disease. 6. Diabetes mellitus. 7. Gastroesophageal reflux disease. 8. Hypertension. 9. Seizure disorder. 10. History of coronary artery bypass graft surgery. 11. Prostatectomy. 12. History of AICD in 2009. 13. Atrial fibrillation. ALLERGIES PHENYTOIN, DIVALPROEX SODIUM, TETANUS TOXOID. ANTIBIOTICS 1. Vancomycin. 2. Azithromycin. 3. Cefepime. OBJECTIVE: Vital Signs Date Time Temp Pulse Resp B/P (MAP) Pulse Ox O2 Delivery O2 Flow Rate FiO2 02/26/17 12:00 100.0 88 25 116/73 (87) 93 02/26/17 12:00 88 02/26/17 08:44 91 35 02/26/17 08:00 86 02/26/17 08:00 99.0 86 46 123/73 (90) 91 02/26/17 07:00 93 Bi-Pap 40 02/26/17 06:00 99 02/26/17 05:01 90 35 02/26/17 04:00 101 02/26/17 04:00 99.9 101 20 117/83 (94) 90 02/26/17 03:35 93 35 02/26/17 02:00 90 02/26/17 01:20 95 35 02/26/17 00:00 99 02/26/17 00:00 97.7 99 36 120/92 (101) 96 02/25/17 22:00 94 02/25/17 20:37 94 35 02/25/17 20:00 97.7 95 30 126/88 (101) 92 02/25/17 20:00 100 02/25/17 19:00 94 Bi-Pap 35 02/25/17 18:00 96 02/25/17 16:32 95 35 02/25/17 16:00 96 02/25/17 16:00 98.9 96 32 102/64 (77) 96 02/25/17 14:00 98 02/25/17 13:41 95 Laboratory Tests Test 02/25/17 04:56 02/26/17 05:27 White Blood Count 5.6 TH/MM3 8.3 TH/MM3 Red Blood Count 4.40 MIL/MM3 4.49 MIL/MM3 Hemoglobin 13.4 GM/DL 14.0 GM/DL Hematocrit 40.1 % 41.3 % Mean Corpuscular Volume 91.2 FL 92.0 FL Mean Corpuscular Hemoglobin 30.4 PG 31.1 PG Mean Corpuscular Hemoglobin Concent 33.4 % 33.8 % Red Cell Distribution Width 14.7 % 14.5 % Platelet Count 192 TH/MM3 187 TH/MM3 Mean Platelet Volume 7.9 FL 8.8 FL Laboratory Tests Test 02/24/17 14:02 02/25/17 04:56 02/25/17 17:25 02/25/17 21:12 Phosphorus Level 4.2 MG/DL 3.8 MG/DL Troponin I 0.04 NG/ML Blood Urea Nitrogen 31 MG/DL Creatinine 1.14 MG/DL Random Glucose 122 MG/DL Calcium Level 9.7 MG/DL Magnesium Level 2.0 MG/DL Sodium Level 130 MEQ/L Potassium Level 4.5 MEQ/L Chloride Level 85 MEQ/L Carbon Dioxide Level 37.4 MEQ/L Anion Gap 8 MEQ/L Estimat Glomerular Filtration Rate 64 ML/MIN B-Type Natriuretic Peptide 1072 PG/ML Lactic Acid Level 2.4 mmol/L 4.7 mmol/L Test 02/26/17 05:27 Blood Urea Nitrogen 42 MG/DL Creatinine 1.39 MG/DL Random Glucose 146 MG/DL Calcium Level 9.2 MG/DL Phosphorus Level 5.1 MG/DL Magnesium Level 2.1 MG/DL Sodium Level 133 MEQ/L Potassium Level 3.4 MEQ/L Chloride Level 90 MEQ/L Carbon Dioxide Level 32.7 MEQ/L Anion Gap 10 MEQ/L Estimat Glomerular Filtration Rate 51 ML/MIN Microbiology Date/Time Source Procedure Growth Status 02/25/17 17:25 Blood Peripheral Aerobic Blood Culture - Preliminary NO GROWTH IN 1 DAY Resulted 02/25/17 17:25 Blood Peripheral Anaerobic Blood Culture - Preliminary NO GROWTH IN 1 DAY Resulted 02/25/17 17:20 Blood Peripheral Aerobic Blood Culture - Preliminary NO GROWTH IN 1 DAY Resulted 02/25/17 17:20 Blood Peripheral Anaerobic Blood Culture - Preliminary NO GROWTH IN 1 DAY Resulted 02/24/17 06:35 Blood Peripheral Aerobic Blood Culture - Preliminary Staphylococcus Epidermidis Resulted 02/24/17 06:35 Anaerobic Blood Culture - Preliminary Gram Positive Cocci Resulted 02/24/17 06:25 Blood Peripheral Aerobic Blood Culture - Preliminary NO GROWTH IN 2 DAYS Resulted 02/24/17 06:25 Anaerobic Blood Culture - Preliminary Staph Sp Coagulase Negative Resulted 02/24/17 06:50 Nasal Washing Influenza Types A,B Antigen (CESAR) - Final NEGATIVE FOR FLU A AND B ANTIGEN.... Complete 02/25/17 13:50 Urine Catheterized Urine Urine Culture - Preliminary NO GROWTH IN 24 HOURS. Resulted PHYSICAL EXAMINATION GENERAL: This is a well-developed male who is in no acute distress. He is somnolent. He is on BiPAP oxygen administration. HEENT: No icterus. NECK: No adenopathy or swelling. LUNGS: Clear breath sounds which are decreased at the bases. HEART: Regular, S1 and S2 without murmurs, rubs or gallops. ABDOMEN: Bowel sounds present, soft, and no tenderness appreciated. EXTREMITIES: No clubbing, cyanosis or edema. SKIN: No diffuse rash. NEUROLOGIC: Nonfocal. IMPRESSION 1. Bacteremia due to gram-positive cocci. 2. Pneumonia. 3. Respiratory distress with hypoxemia. On BIPAP. Given that the blood cultures show up in different sets with one bottle positive and different bottles one being aerobic and one being anaerobic, it is difficult to tell whether this is a real or pseudo-bacteremia. The patient has no fever and no elevation in white blood cell count. However, given the acuity of his illness he should be continued with the antibiotic treatment and blood cultures repeated, and the current blood culture followed up for identity and sensitivity of the organism and clinical status monitored. RECOMMENDATIONS 1. Continue Vancomycin. 2. Continue cefepime and azithromycin for pulmonary coverage. 3. Continue to monitor blood cultures. 4. Monitor clinical status. Jesus Kilpatrick MD Feb 26, 2017 13:04
--- NOTE | 2017-02-26 13:26 | RADRPT ---
EXAM DATE/TIME: 02/26/2017 11:27 [facility] COMPARISON: No previous studies available for comparison. INDICATIONS : NG tube palcement. MEDICAL HISTORY : None. SURGICAL HISTORY : None. ENCOUNTER: Initial ACUITY: 1 day PAIN SCORE: Non-responsive. LOCATION: Bilateral abdomen. FINDINGS: Examination of the abdomen demonstrates a normal bowel gas pattern. No free air is identified. No o rganomegaly is evident. Osseous structures are intact. CONCLUSION: No evidence of obstruction. Dobbhoff feeding tube in the stomach Pablito Olivera MD on February 26, 2017 at 13:23 Board Certified Radiologist. This report was verified electronically.
[2017-02-26] MEDS: SODIUM CHLOR 0.9% 1000 ML INJ 1,000 ML IV SCH (15:00)
--- NOTE | 2017-02-26 16:40 | HHI.PR ---
Subjective Remarks not better very anxious still on NIPPV Objective Vital Signs Date Time Temp Pulse Resp B/P (MAP) Pulse Ox O2 Delivery O2 Flow Rate FiO2 02/26/17 15:24 90 45 02/26/17 12:00 100.0 88 25 116/73 (87) 93 02/26/17 12:00 88 02/26/17 11:30 94 35 02/26/17 08:44 91 35 02/26/17 08:00 86 02/26/17 08:00 99.0 86 46 123/73 (90) 91 02/26/17 07:00 93 Bi-Pap 40 02/26/17 06:00 99 02/26/17 05:01 90 35 02/26/17 04:00 101 02/26/17 04:00 99.9 101 20 117/83 (94) 90 02/26/17 03:35 93 35 02/26/17 02:00 90 02/26/17 01:20 95 35 02/26/17 00:00 99 02/26/17 00:00 97.7 99 36 120/92 (101) 96 02/25/17 22:00 94 02/25/17 20:37 94 35 02/25/17 20:00 97.7 95 30 126/88 (101) 92 02/25/17 20:00 100 02/25/17 19:00 94 Bi-Pap 35 02/25/17 18:00 96 I/O 02/25/17 02/25/17 02/25/17 02/26/17 02/26/17 02/26/17 07:00 15:00 23:00 07:00 15:00 23:00 Intake Total 494 ml 301 ml 1190 ml 376 ml Output Total 825 ml 1452 ml 650 ml Balance -331 ml 301 ml -262 ml -274 ml Intake Oral 240 ml 240 ml 60 ml IV Total 254 ml 301 ml 950 ml 316 ml Output Urine Total 825 ml 1450 ml 650 ml Stool Total 2 ml # Bowel Movements 0 Result Diagram: 02/26/1752602/26/17526 Objective Remarks PHYSICAL EXAMINATION: HEAD AND NECK: Normocephalic and atraumatic. BiPAP on. Trachea is midline. LUNGS: Decreased breath sounds bilaterally significantly without any wheezing heard. HEART: Normal S1 and S2. ABDOMEN: Soft. It is not tender. EXTREMITIES: No significant edema or cyanosis. NEUROLOGIC: The patient is alert. He moves all extremities. ASSESSMENT AND PLAN: 1. Acute respiratory failure. 2. Severe COPD exacerbation. 3. Congestive heart failure. , I do believe his overall prognosis is not very good. I do recommend to continue the current systemic steroids and antibiotics. Continue bronchodilators. add MS 2 mg Q 4 PRN I would recommend to wean off FIO2 to keep 02 saturations more than or equal to 89%. if the patient does not improve in 1-2 days , comfort care will be reasonable. D/W RN at bedside in details.. Dylan Linder MD Feb 26, 2017 16:39
[2017-02-26] MEDS ORDERED: WARFARIN SOD 2.5 MG TAB PO ONE (18:00)
[2017-02-27] VITALS (15 sets, daily range): BP systolic 125–138; BP diastolic 68–87; PULSE 82–108; RESP 22–36; TEMP 99.7–101.8; O2SAT 90–97
[2017-02-27] MEDS: VANCOMYCIN 1,500 MG/NS 500 ML IV SCH ×2 (02:15)
[2017-02-27] MEDS: RESP: ALBUTEROL 2.5 MG/IPRATROPIUM 0.5 MG NEB (SCH) INH ×3 (03:49→15:27)
[2017-02-27] MEDS: CHLORHEXIDINE GLUCONATE 2 % 1 PACK (2 CLOTHS) TOP SCH (04:00)
[2017-02-27 04:52] LABS: HEMATOCRIT 41.5 % (39.0-51.0); MEAN CELL VOLUME 92.8 FL (80.0-100.0); MEAN CORPUSCULAR HEMOGLOBIN 31.2 PG (27.0-34.0); MEAN CORPUSCULAR HGB CONC 33.7 % (32.0-36.0); MEAN PLATELET VOLUME 8.9 FL (7.0-11.0); PLATELET COUNT 167 TH/MM3 (150-450); RED BLOOD COUNT 4.47 MIL/MM3 (4.50-5.90); RED CELL DISTRIBUTION WIDTH 15.4 % (11.6-17.2); WHITE BLOOD COUNT 11.1 TH/MM3 (4.0-11.0)
[2017-02-27 04:57] LABS: INTERNATIONAL NORMALIZED RATIO 1.3 RATIO; PROTHROMBIN TIME - PATIENT 13.6 SEC (9.8-11.6)
[2017-02-27 05:13] LABS: CALCIUM 9.3 MG/DL (8.5-10.1); CREATININE 1.37 MG/DL (0.60-1.30)
[2017-02-27] MEDS: methylPREDNISolone SOD SUCC 40 MG/1 ML VIAL IV PUSH SCH ×2 (05:20→18:00)
[2017-02-27] MEDS: CEFEPIME INJ 2,000 MG in SODIUM CHLORIDE 0.9% INJ 100 ML IV SCH ×2 (05:21→15:00)
[2017-02-27] MEDS: ISOSORBIDE MONONITRATE 30 MG TAB PO SCH (06:02)
[2017-02-27] MEDS: GEMFIBROZIL 600 MG TAB PO SCH ×2 (06:02→15:43)
[2017-02-27] MEDS: DEXMEDETOMIDINE INJ 1,000 MCG in SODIUM CHLOR 0.9% 250 ML INJ 240 ML IV PRN ×4 (07:00→18:26)
[2017-02-27] MEDS: INSULIN ASPART SUPPLEMENTAL SCALE SQ SCH ×3 (08:00→17:00)
[2017-02-27] MEDS: SPIRONOLACTONE 25 MG TAB PO SCH (08:52)
[2017-02-27] MEDS: DOCUSATE SODIUM 50 MG/SENNA 8.6 MG TAB PO SCH (08:52)
[2017-02-27] MEDS: LISINOPRIL 5 MG TAB PO SCH (08:52)
[2017-02-27] MEDS: PARoxetine HCL 20 MG TAB PO SCH (08:52)
[2017-02-27] MEDS: METOPROLOL TARTRATE 25 MG TAB PO SCH (08:52)
[2017-02-27] MEDS: FUROSEMIDE 40 MG/4 ML VIAL IV PUSH SCH (08:59)
[2017-02-27] MEDS ORDERED: MUPIROCIN 2% OINT 1 APPLIC/GM SYR NASAL SCH (09:00)
[2017-02-27] MEDS: AZITHROMYCIN INJ 500 MG in SODIUM CHLOR 0.9% 250 ML INJ 250 ML IV SCH (09:00)
[2017-02-27] MEDS: SODIUM CHLORIDE 0.9% FLUSH 10 ML FLUSH IV FLUSH SCH (09:00)
[2017-02-27] MEDS: FAMOTIDINE 20 MG/2 ML VIAL IV PUSH SCH (09:02)
--- NOTE | 2017-02-27 09:23 | HHI.CCPN ---
Subjective Remarks/Hospital Course This is a 71-year-old male with a PMH of CHF, COPD on home O2 @ 4LPM, with two- pillow orthopnea was brought in by EMS from home for evaluation of 2 days of worsening shortness of breath, no appetite, and malaise. Per EMS report the patient had severe respiratory distress with poor air movement bilaterally with wheezes bilaterally with an O2 saturation in the 80s on room air. They administered 2 albuterol nebulized treatments as well as 125 mg of IV Solu- Medrol en route to the hospital. Upon arrival to the ED, the patient was in moderate respiratory distress, speaking a few words at a time with very poor air movement bilaterally. He notes only minimal improvement with the treatment he had received by EMS. He denied chest pain. He has had a nonproductive cough. He has not noted any fevers or chills. He is also had some worsening bilateral lower extremity edema. His agronomy specialist is Dr. Bolanos. In the ED the patient was noted to be in A. fib RVR heart rate 101, and was placed on BiPAP, and given 40 mg of Lasix, and 40 mg of methylprednisolone with improvement of his symptoms. Critical care medicine was consulted. Subjective: 02/25: Afebrile. Patient intermittently changing between O2 via nasal cannula 4-6 L, and BiPAP 14/5. A chin diureses greater than 2 L in the last 24 hours. Lasix again given this a.m.. Blood cultures revealed gram-positive cocci vancomycin added to antibiotic regimen. The patient now tolerating a diet. He is anxious this a.m. Paxil 10 mg daily patient's home medication resumed. Patient's INR was noted to be significantly elevated to 5.6. Vitamin K 10 mg 1 dose IV given. The patient continues in A. fib rate controlled. 02/26: Overnight the patient became extremely anxious ,agitated, removing BiPAP apparatus in oxygen mask. The patient required Precedex infusion to maintain BiPAP apparatus. The patient was effectively diuresed greater than 2 L yesterday. This x-ray pending. Repeat blood cultures pending. Supratherapeutic Coumadin corrected, current INR 1.5 plan to restart Coumadin for target INR between 2.0-3.0. 02/27: Appears to have significant respiratory distress. On BiPAP with full facemask. O2 sats borderline. Objective Vital Signs Date Time Temp Pulse Resp B/P (MAP) Pulse Ox O2 Delivery O2 Flow Rate FiO2 02/27/17 08:04 90 80 02/27/17 07:00 Bi-Pap 02/27/17 06:00 103 02/27/17 04:00 99.7 22 131/84 (100) 02/24/17 21:07 4.00 Intake and Output 02/27/17 02/27/17 02/28/17 08:00 16:00 00:00 Intake Total 919 ml Output Total 950 ml Balance -31 ml Result Diagram: 02/27/17 0425 02/27/17 0425 Other Results Microbiology Date/Time Source Procedure Growth Status 02/25/17 13:50 Urine Catheterized Urine Urine Culture - Final NO GROWTH IN 48 HOURS. Complete Imaging Last Impressions Chest X-Ray 02/24/17 0625 Signed Impressions: Service Date/Time: Friday, February 24, 2017 06:33 - CONCLUSION: 1. Left lower lobe consolidation and small bilateral pleural effusions. 2. Rounded lateral left midlung opacity may represent fluid within the major fissure or pulmonary parenchymal opacity. Lateral chest radiograph could be performed for further characterization. Nicolas Dsouza MD Objective Remarks GENERAL: Well-developed well-nourished gentleman looking older than stated age currently on BiPAP sedated on Precedex infusion SKIN: Warm and dry. HEAD: Atraumatic. Normocephalic. EYES: Pupils equal and round. No scleral icterus. No injection or drainage. ENT: No nasal bleeding or discharge. Mucous membranes pink and moist. NECK: Trachea midline. No JVD. CARDIOVASCULAR: Normal rate, irregular rhythm. RESPIRATORY: No accessory muscle use. Mild expiratory wheezing bilaterally. Breath sounds equal bilaterally. Currently on BiPAP 14/5/0.35 GASTROINTESTINAL: Abdomen soft, non-tender, nondistended. No guarding. Normoactive bowel sounds MUSCULOSKELETAL: Extremities without clubbing, cyanosis, or edema. No obvious deformities. 3+ pedal / lower extremity edema NEUROLOGICAL: Awake and alert. disoriented, not following commands. No gross focal/sensory deficits. Moving all 4 extremities. Date of Insertion: Feb 24, 2017 A/P Problem List: (1) Respiratory distress ICD Code: R06.00 - Dyspnea, unspecified Status: Acute (2) Hypoxia ICD Code: R09.02 - Hypoxemia Status: Acute (3) Demand ischemia ICD Code: I24.8 - Other forms of acute ischemic heart disease; R65.20 - Severe sepsis without septic shock Status: Acute (4) Sepsis ICD Code: A41.9 - Sepsis, unspecified organism Status: Acute (5) Chronic anticoagulation ICD Code: Z79.01 - surgery specialist (current) use of anticoagulants Status: Chronic (6) CHF (congestive heart failure) ICD Code: I50.9 - Heart failure, unspecified Status: Acute (7) COPD (chronic obstructive pulmonary disease) ICD Code: J44.9 - Chronic obstructive pulmonary disease, unspecified Status: Chronic (8) Acute exacerbation of CHF (congestive heart failure) ICD Code: I50.9 - Heart failure, unspecified Status: Acute (9) Pneumonia ICD Code: J18.9 - Pneumonia, unspecified organism Status: Acute (10) Pulmonary edema ICD Code: J81.1 - Chronic pulmonary edema Status: Acute (11) CHF exacerbation ICD Code: I50.9 - Heart failure, unspecified Status: Acute (12) History of atrial fibrillation ICD Code: Z86.79 - History of atrial fibrillation Status: Acute (13) Diabetes mellitus, type II ICD Code: E11.9 - Type 2 diabetes mellitus Status: Acute (14) Hyperlipidemia ICD Code: E78.5 - Hyperlipidemia Status: Acute Assessment and Plan This is a 71-year-old male with past medical history significant for ischemic cardiomyopathy, with AICD. With a medical history significant for COPD and now presents with exacerbation of CHF and probable pneumonia. Palliative medicine consulted for clarification to define goals of treatment. Patient has expressed different decisions regarding intubation to different providers. Plan by systems: Neurologic: Diabetic neuropathy Avoid long-acting sedative type medications Patient currently on Precedex infusion Tylenol 650 mg every 6 hours when necessary for pain and/or temperature > 101.0 Patient normally on gabapentin 1200 mg 3 times a day, on hold Paroxetine 10 mg/day Respiratory: COPD exacerbation HCAP Pulmonary edema Home O2 dependency @4LPM Maintain O2 sat greater than 92% Continue BiPAP currently at 14/7 FiO2 of 0.35%, until you to wean FiO2 Duo nebs every 6 hours scheduled Patient received methylprednisolone 40 mg 1 dose in ED, continue methylprednisolone 40 mg twice a day Continue Lasix 40 mg twice a day 1/5 chest x-ray Left lower lobe consolidation, a centimeter opacity lateral left midlung, small bilateral pleural effusions Patient's baseline is 2 pillow orthopnea with 4 L home O2 dependency F/U repeat chest x-ray -unchanged Cardiovascular: CHF exacerbation Ischemic cardiomyopathy with AICD A. fib RVR-resolved History of hypertension A. fib rate controlled Initial presentation patient in A. fib RVR HR 101, upon application of BiPAP HR normalized 80s Initial troponin 0.04 Lasix 40 mg continued BID Echo 02/09/16 EF 40-45%, mild MR, trace AR Continue Isordil 30 mg/day, metoprolol 25 mg twice a day, lisinopril 5 mg/day and spironolactone 25 mg/day Renal: Renal insufficiency Maintain Regalado catheter patient receiving diuretics to measure adequate urinary output -- Strict I/Os FEN/GI: Hypercholesterolemia GERD Electrolyte derangement Nothing by mouth except meds-insert NG tube, for feeding and medication administration Zofran for nausea Famotidine GI prophylaxis Sodium 130-> 133 , improved. Reveals hospitalizations patient noted to have sodium levels 131-135 Replete electrolytes per ICU protocol Continue gemfibrozil 600 mg twice a day Heme/ID: Chronic anticoagulation INR normalized, will reinitiate Coumadin for targeted therapeutic level Repeat INR in a.m.-maintain INR 2.0-3.0 F/U urine culture 02/25 blood [id number] cocci ID [id number] recommendations-patient continues on vancomycin, cefepime and azithromycin Obtain pneumococcal antigen 02/24 Influenza A- negative Endocrine: Diabetes mellitus Glucose monitoring per ICU protocol Hold metformin -- SSI Prophylaxis: GI Prophylaxis Famotidine BID DVT Prophylaxis -- SCDs Patient on chronic anticoagulation, Coumadin, INR 3.3, currently supratherapeutic Lines: Peripheral IVs 2. Central line if indicated Palliative care following to assist with deciding goals of therapy. Dispo: my billing statement This patient remains critically ill with one or more organ systems which are or may become a threat to life. I have spent in excess of 35 minutes discontinuously in the care and management of this patient. This time is exclusive of procedures, and includes, but is not limited to, evaluation of the patient, review of the medical record, discussions with family, consultants, nursing staff, or respiratory therapy, and documentation in the medical record. Problem Qualifiers (1) Pneumonia: Qualified Codes: J18.1 - Lobar pneumonia, unspecified organism (2) Pulmonary edema: Qualified Codes: J81.0 - Acute pulmonary edema Cameron Dowell MD Feb 27, 2017 09:23
[2017-02-27] MEDS: POTASSIUM CHLOR 20 MEQ PREMIX 100 ML IV PRN ×2 (10:38→13:52)
[2017-02-27] MEDS: ALBUMIN 5% INJ 500 ML IV SCH (10:39)
[2017-02-27] MEDS ORDERED: ACETAMINOPHEN 1000 MG/100 ML 100 ML IV ONE (12:00)
[2017-02-27] MEDS: SODIUM CHLOR 0.9% 1000 ML INJ 1,000 ML IV SCH (15:00)
--- NOTE | 2017-02-27 15:13 | HHI.IDPN ---
Note Infectious Disease Note Patient is on BIPAP. Desaturated once BIPAP mask taken off. Spiking temp. 71-year-old white male who was admitted to the hospital on 09/24 with respiratory distress. The patient reportedly had two days of worsening shortness of breath. He was admitted to the hospital and was found to have wheezing and oxygen desaturation. PAST MEDICAL HISTORY 1. COPD. 2. Anxiety. 3. Depression. 4. Congestive heart failure. 5. Coronary artery disease. 6. Diabetes mellitus. 7. Gastroesophageal reflux disease. 8. Hypertension. 9. Seizure disorder. 10. History of coronary artery bypass graft surgery. 11. Prostatectomy. 12. History of AICD in 2009. 13. Atrial fibrillation. ALLERGIES PHENYTOIN, DIVALPROEX SODIUM, TETANUS TOXOID. ANTIBIOTICS 1. Vancomycin. 2. Azithromycin. 3. Cefepime. OBJECTIVE: Vital Signs Date Time Temp Pulse Resp B/P (MAP) Pulse Ox O2 Delivery O2 Flow Rate FiO2 02/27/17 12:00 105 02/27/17 12:00 101.8 98 36 138/85 (102) 90 02/27/17 11:24 94 50 02/27/17 10:00 102 02/27/17 08:04 90 80 02/27/17 08:00 101.1 98 36 132/87 (102) 90 02/27/17 08:00 98 02/27/17 07:00 92 Bi-Pap 45 02/27/17 06:00 103 02/27/17 04:00 99.7 95 22 131/84 (100) 97 02/27/17 04:00 95 02/27/17 03:50 94 40 02/27/17 02:00 82 02/27/17 00:40 97 40 02/27/17 00:00 100.0 89 25 134/84 (101) 95 02/27/17 00:00 92 02/26/17 22:00 102 02/26/17 20:55 96 40 02/26/17 20:00 99.1 89 24 122/86 (98) 94 02/26/17 20:00 93 02/26/17 20:00 94 Bi-Pap 45 02/26/17 18:00 94 02/26/17 16:00 98 02/26/17 16:00 100.2 98 26 134/80 (98) 96 02/26/17 15:24 90 45 Laboratory Tests Test 02/26/17 05:27 02/27/17 04:25 White Blood Count 8.3 TH/MM3 11.1 TH/MM3 Red Blood Count 4.49 MIL/MM3 4.47 MIL/MM3 Hemoglobin 14.0 GM/DL 14.0 GM/DL Hematocrit 41.3 % 41.5 % Mean Corpuscular Volume 92.0 FL 92.8 FL Mean Corpuscular Hemoglobin 31.1 PG 31.2 PG Mean Corpuscular Hemoglobin Concent 33.8 % 33.7 % Red Cell Distribution Width 14.5 % 15.4 % Platelet Count 187 TH/MM3 167 TH/MM3 Mean Platelet Volume 8.8 FL 8.9 FL Laboratory Tests Test 02/25/17 17:25 02/25/17 21:12 02/26/17 05:27 02/27/17 04:25 Lactic Acid Level 2.4 mmol/L 4.7 mmol/L Blood Urea Nitrogen 42 MG/DL 52 MG/DL Creatinine 1.39 MG/DL 1.37 MG/DL Random Glucose 146 MG/DL 158 MG/DL Calcium Level 9.2 MG/DL 9.3 MG/DL Phosphorus Level 5.1 MG/DL Magnesium Level 2.1 MG/DL Sodium Level 133 MEQ/L 137 MEQ/L Potassium Level 3.4 MEQ/L 3.2 MEQ/L Chloride Level 90 MEQ/L 96 MEQ/L Carbon Dioxide Level 32.7 MEQ/L 29.0 MEQ/L Anion Gap 10 MEQ/L 12 MEQ/L Estimat Glomerular Filtration Rate 51 ML/MIN 52 ML/MIN Microbiology Date/Time Source Procedure Growth Status 02/25/17 17:25 Blood Peripheral Aerobic Blood Culture - Preliminary NO GROWTH IN 2 DAYS Resulted 02/25/17 17:25 Blood Peripheral Anaerobic Blood Culture - Preliminary NO GROWTH IN 2 DAYS Resulted 02/25/17 17:20 Blood Peripheral Aerobic Blood Culture - Preliminary NO GROWTH IN 2 DAYS Resulted 02/25/17 17:20 Blood Peripheral Anaerobic Blood Culture - Preliminary NO GROWTH IN 2 DAYS Resulted 02/25/17 13:50 Urine Catheterized Urine Urine Culture - Final NO GROWTH IN 48 HOURS. Complete Microbiology Date/Time Source Procedure Growth Status 02/25/17 17:25 Blood Peripheral Aerobic Blood Culture - Preliminary NO GROWTH IN 1 DAY Resulted 02/25/17 17:25 Blood Peripheral Anaerobic Blood Culture - Preliminary NO GROWTH IN 1 DAY Resulted 02/25/17 17:20 Blood Peripheral Aerobic Blood Culture - Preliminary NO GROWTH IN 1 DAY Resulted 02/25/17 17:20 Blood Peripheral Anaerobic Blood Culture - Preliminary NO GROWTH IN 1 DAY Resulted 02/24/17 06:35 Blood Peripheral Aerobic Blood Culture - Preliminary Staphylococcus Epidermidis Resulted 02/24/17 06:35 Anaerobic Blood Culture - Preliminary Gram Positive Cocci Resulted 02/24/17 06:25 Blood Peripheral Aerobic Blood Culture - Preliminary NO GROWTH IN 2 DAYS Resulted 02/24/17 06:25 Anaerobic Blood Culture - Preliminary Staph Sp Coagulase Negative Resulted 02/24/17 06:50 Nasal Washing Influenza Types A,B Antigen (CESAR) - Final NEGATIVE FOR FLU A AND B ANTIGEN.... Complete 02/25/17 13:50 Urine Catheterized Urine Urine Culture - Preliminary NO GROWTH IN 24 HOURS. Resulted IMAGING: Chest X-Ray 02/26/17 0000 Signed Impressions: Service Date/Time: Sunday, February 26, 2017 11:20 - CONCLUSION: No significant change from 02/25/17. Ahmet Jeffers MD Abdomen X-Ray 02/26/17 0000 Signed Impressions: Service Date/Time: Sunday, February 26, 2017 11:27 - CONCLUSION: No evidence of obstruction. Dobbhoff feeding tube in the stomach Pablito Olivera MD Chest X-Ray 02/25/17 0600 Signed Impressions: Service Date/Time: Saturday, February 25, 2017 03:47 - CONCLUSION: No significant interval change. Persistent left greater than right pulmonary parenchymal opacity and small bilateral pleural effusions. Nicolas Dsouza MD PHYSICAL EXAMINATION GENERAL: Appears to be in respiratory distress. On BiPAP oxygen administration. HEENT: No icterus. NECK: No adenopathy or swelling. LUNGS: basilar rhonchi. HEART: Regular, S1 and S2 without murmurs, rubs or gallops. ABDOMEN: Bowel sounds present, soft. EXTREMITIES: No clubbing, cyanosis or edema. SKIN: No diffuse rash. NEUROLOGIC: Unable to asses. IMPRESSION 1. Bacteremia due to gram-positive cocci. 2. Pneumonia. 3. Respiratory distress with hypoxemia. On BIPAP. RECOMMENDATIONS 1. Continue Vancomycin. 2. Continue cefepime and azithromycin for pulmonary coverage. 3. Continue to monitor blood cultures. If negative on repeat he can be treated for ten days with vancomycin. 4. Monitor clinical status. Dontfraid,Jesus F MD Feb 27, 2017 15:13
[2017-02-27] MEDS ORDERED: WARFARIN SOD 4 MG TAB PO SCH (16:00)
--- NOTE | 2017-02-27 17:38 | HHI.HCPN ---
Reason for visit a. To assist with evaluation and management of symptoms including: dyspnea ; generalized weakness b. To assist medical decision maker(s) with: better understanding of current medical conditions; weighing benefits/burdens of medical treatment options; making medical treatment decisions. . Subjective/Interval History Patient seen and examined in his room on [facility]. Patient is sitting up in bed on a BiPAP machine, increased work of breathing. Obvious use of accessory muscles and abdominal breathing. FiO2 45% with O2 saturation in the high 80s and a maximum of 90%.Patient looks very weak, and unable to verbally respond to simple questions. No eye opening during visit. Report from bedside RN, that patient was verbalizing earlier on to" just let him go". Patient is febrile with a core temperature of 101.8 degrees Fahrenheit, heart rate 108, SBP 120s to 130s. Laboratory workup today revealed WBC 11.1, hemoglobin 14.0, hematocrit 31.5, platelet count 167, potassium 3.2, BUN/ creatinine 52/1.37. Telephone call placed to patient's healthcare surrogate Gonzalez Salvador. Updated on patient's current medical status and deterioration in his respiratory status. Patient's healthcare surrogate stated that patient does not want to be intubated and has emphasized that to his health care surrogates. She stated that patient would only want to be kept comfortable with no tubes. Introduced hospice philosophy and benefits. Gonzalez Salvador, wants patient to be enrolled in hospice and agreeable with placing a hospice consult. Will be coming to visit with patient and meet up with hospice staff today. Family/friend interactions Telephone conversation with the patient's healthcare surrogate. . Advance Directives Living Will: Never completed Health Care Surrogate: Copy in medical record Durable Power of Comic Artist: Never completed Advance Directive Specifics Date completed: There is no living will on file. There is a written designation of health care surrogate scanned into the electronic medical record. It is dated 09/18/15. / Health Care Surrogate(s): The patient has designated the following as his health care surrogate... Gonzalez and/or Christoph Salvador [address] [facility] [address] He has designated his alternate to be.. Rafi Roberts [address] [place] [id number] These individuals are apparently friends. . Documented care wishes: Patient is 5 wishes- see scanned in document . Objective Vital Signs Date Time Temp Pulse Resp B/P (MAP) Pulse Ox O2 Delivery O2 Flow Rate FiO2 02/27/17 16:00 108 02/27/17 16:00 101.8 108 22 125/68 (87) 96 02/27/17 15:27 93 50 02/27/17 14:00 102 02/27/17 12:00 105 02/27/17 12:00 101.8 98 36 138/85 (102) 90 02/27/17 11:24 94 50 02/27/17 10:00 102 02/27/17 08:04 90 80 02/27/17 08:00 101.1 98 36 132/87 (102) 90 02/27/17 08:00 98 02/27/17 07:00 92 Bi-Pap 45 02/27/17 06:00 103 02/27/17 04:00 99.7 95 22 131/84 (100) 97 02/27/17 04:00 95 02/27/17 03:50 94 40 02/27/17 02:00 82 02/27/17 00:40 97 40 02/27/17 00:00 100.0 89 25 134/84 (101) 95 02/27/17 00:00 92 02/26/17 22:00 102 02/26/17 20:55 96 40 02/26/17 20:00 99.1 89 24 122/86 (98) 94 02/26/17 20:00 93 02/26/17 20:00 94 Bi-Pap 45 02/26/17 18:00 94 Intake & Output 02/27/17 02/27/17 06:59 18:59 Intake Total 919 ml 598 ml Output Total 950 ml Balance -31 ml 598 ml IV Total 799 ml 598 ml Other 120 ml Output Urine Total 950 ml # Bowel Movements 0 Physical Exam CONSTITUTIONAL/GENERAL: This is an adequately nourished patient in an intensive care unit bed. Lethargic with increased awake of breathing, not verbalizing. TUBES/LINES/DRAINS: Peripheral IV; Regalado catheter; SCDs; nasal cannula oxygen. SKIN: No jaundice, rashes, or lesions. Ecchymoses on upper extremities. No wounds seen anteriorly. Skin temperature appropriate. Not diaphoretic. HEAD: Atraumatic. Normocephalic. EYES: Pupils equal and round and reactive. Extraocular motions intact. No scleral icterus. No injection or drainage. Fundi not examined. ENT: Hearing grossly normal. Nose without bleeding or purulent drainage. Throat without visible erythema, exudates, masses, or lesions. NECK: Trachea midline. Supple, nontender. No palpable thyroid enlargement or nodularity. CARDIOVASCULAR: Irregularly irregular rate and rhythm without murmurs, gallops, or rubs. JVD is present.. Peripheral pulses symmetric. RESPIRATORY/CHEST: Symmetric, unlabored respirations. Breath sounds diminished bilaterally but significantly worse on left. Scattered rhonchi. No audible wheezes at time of my visit. GASTROINTESTINAL: Abdomen soft, non-tender, nondistended. No hepato-splenomegaly , or palpable masses. No guarding. Bowel sounds present. GENITOURINARY: Without palpable bladder distension. Regalado catheter in place. MUSCULOSKELETAL: Extremities without clubbing, cyanosis. 3-4+ edema bilateral lower extremities. No joint tenderness or effusion noted. No calf tenderness. No mottling or clubbing. NEUROLOGICAL: Lethargic, not verbalizing. Did not follow commands PSYCHIATRIC: No obvious anxiety/depression. no apparent hallucinations or other psychotic thought process. . Diagnostic Tests Laboratory Laboratory Tests Test 02/25/17 04:56 02/25/17 17:25 02/25/17 21:12 02/26/17 05:27 White Blood Count 5.6 TH/MM3 (4.0-11.0) 8.3 TH/MM3 (4.0-11.0) Red Blood Count 4.40 MIL/MM3 (4.50-5.90) 4.49 MIL/MM3 (4.50-5.90) Hemoglobin 13.4 GM/DL (13.0-17.0) 14.0 GM/DL (13.0-17.0) Hematocrit 40.1 % (39.0-51.0) 41.3 % (39.0-51.0) Mean Corpuscular Volume 91.2 FL (80.0-100.0) 92.0 FL (80.0-100.0) Mean Corpuscular Hemoglobin 30.4 PG (27.0-34.0) 31.1 PG (27.0-34.0) Mean Corpuscular Hemoglobin Concent 33.4 % (32.0-36.0) 33.8 % (32.0-36.0) Red Cell Distribution Width 14.7 % (11.6-17.2) 14.5 % (11.6-17.2) Platelet Count 192 TH/MM3 (150-450) 187 TH/MM3 (150-450) Mean Platelet Volume 7.9 FL (7.0-11.0) 8.8 FL (7.0-11.0) Prothrombin Time 55.8 SEC (9.8-11.6) 15.9 SEC (9.8-11.6) Prothromb Time International Ratio 5.6 RATIO 1.6 RATIO Blood Urea Nitrogen 31 MG/DL (7-18) 42 MG/DL (7-18) Creatinine 1.14 MG/DL (0.60-1.30) 1.39 MG/DL (0.60-1.30) Random Glucose 122 MG/DL (74-106) 146 MG/DL (74-106) Calcium Level 9.7 MG/DL (8.5-10.1) 9.2 MG/DL (8.5-10.1) Phosphorus Level 3.8 MG/DL (2.5-4.9) 5.1 MG/DL (2.5-4.9) Magnesium Level 2.0 MG/DL (1.5-2.5) 2.1 MG/DL (1.5-2.5) Sodium Level 130 MEQ/L (136-145) 133 MEQ/L (136-145) Potassium Level 4.5 MEQ/L (3.5-5.1) 3.4 MEQ/L (3.5-5.1) Chloride Level 85 MEQ/L (98-107) 90 MEQ/L (98-107) Carbon Dioxide Level 37.4 MEQ/L (21.0-32.0) 32.7 MEQ/L (21.0-32.0) Anion Gap 8 MEQ/L (5-15) 10 MEQ/L (5-15) Estimat Glomerular Filtration Rate 64 ML/MIN (>89) 51 ML/MIN (>89) B-Type Natriuretic Peptide 1072 PG/ML (0-100) Lactic Acid Level 2.4 mmol/L (0.4-2.0) 4.7 mmol/L (0.4-2.0) Test 02/27/17 04:25 White Blood Count 11.1 TH/MM3 (4.0-11.0) Red Blood Count 4.47 MIL/MM3 (4.50-5.90) Hemoglobin 14.0 GM/DL (13.0-17.0) Hematocrit 41.5 % (39.0-51.0) Mean Corpuscular Volume 92.8 FL (80.0-100.0) Mean Corpuscular Hemoglobin 31.2 PG (27.0-34.0) Mean Corpuscular Hemoglobin Concent 33.7 % (32.0-36.0) Red Cell Distribution Width 15.4 % (11.6-17.2) Platelet Count 167 TH/MM3 (150-450) Mean Platelet Volume 8.9 FL (7.0-11.0) Prothrombin Time 13.6 SEC (9.8-11.6) Prothromb Time International Ratio 1.3 RATIO Blood Urea Nitrogen 52 MG/DL (7-18) Creatinine 1.37 MG/DL (0.60-1.30) Random Glucose 158 MG/DL (74-106) Calcium Level 9.3 MG/DL (8.5-10.1) Sodium Level 137 MEQ/L (136-145) Potassium Level 3.2 MEQ/L (3.5-5.1) Chloride Level 96 MEQ/L (98-107) Carbon Dioxide Level 29.0 MEQ/L (21.0-32.0) Anion Gap 12 MEQ/L (5-15) Estimat Glomerular Filtration Rate 52 ML/MIN (>89) Result Diagram: 02/27/17 0425 02/27/17 0425 Microbiology Microbiology Date/Time Source Procedure Growth Status 02/25/17 17:25 Blood Peripheral Aerobic Blood Culture - Preliminary NO GROWTH IN 2 DAYS Resulted 02/25/17 17:25 Blood Peripheral Anaerobic Blood Culture - Preliminary NO GROWTH IN 2 DAYS Resulted 02/25/17 17:20 Blood Peripheral Aerobic Blood Culture - Preliminary NO GROWTH IN 2 DAYS Resulted 02/25/17 17:20 Blood Peripheral Anaerobic Blood Culture - Preliminary NO GROWTH IN 2 DAYS Resulted 02/25/17 13:50 Urine Catheterized Urine Urine Culture - Final NO GROWTH IN 48 HOURS. Complete Imaging Last 48 hours Impressions Chest X-Ray 02/26/17 0000 Signed Impressions: Service Date/Time: Sunday, February 26, 2017 11:20 - CONCLUSION: No significant change from 02/25/17. Ahmet Jeffers MD Abdomen X-Ray 02/26/17 0000 Signed Impressions: Service Date/Time: Sunday, February 26, 2017 11:27 - CONCLUSION: No evidence of obstruction. Dobbhoff feeding tube in the stomach Pablito Olivera MD Assessment and Plan Disease Oriented Problem List: (1) CHF exacerbation (2) Pleural effusion (3) COPD (chronic obstructive pulmonary disease) (4) Pneumonia (5) Adrenal adenoma (6) Tobacco abuse (7) Hyperlipidemia (8) Diabetes mellitus, type II (9) Chronic anticoagulation (10) History of atrial fibrillation (11) Microhematuria (12) BPH with urinary obstruction Symptom Scale: (1) Dyspnea 0-10 Scale: Unable to quantify (2) Generalized weakness 0-10 Scale: Unable to quantify Pertinent Non-Medical Issues Psychosocial: Lives in an assisted living facility. Patient is a . No children. Spiritual: Patient self identifies as Yazidism. Yazdanism and spirituality are important to him would welcome smart grid engineer visits. Legal: There is no living will on the chart per patient does have a written designation of health care surrogate which has been scanned into the electronic medical record. Ethical issues impacting care: Patient is capacitated to make his own health care decisions at this time. No known at that are legal conflicts at this time. . Important Contacts Gonzalez and/or Christoph Salvador (friends, health care surrogate) [address] [place], [place] [id number] He friend has been designated his alternatesurrogate... Rafi Armando [address] [place], [place] [id number] . Prognosis Patient has had multiple hospitalizations for both COPD and congestive heart failure exacerbations. So far, he has managed to improve with treatment and get back to his assisted living facility. He does seem to be losing weight now. They're certainly more hospitalizations over the last year that there were in the preceding year. Overall there has been declined. I would not be surprised if patient within the next year. . Code Status: No Code Plan == Code Status: DNR. == Decision making: Patient is in respiratory distress and not verbalizing. Should he become incapacitated he has designated his friends, Gonzalez and/or Christoph Salvador, as his health care surrogate. == Goals of medical treatment. Patient`s respiratory status worsening, currently on BIPAP and not verbalizing. Patient`s HCS Gonzalez stated that patient would not want to be intubated and placed on a mechanical ventilator. Hospice consulted. == Symptoms * Pain: Patient is complaining of some buttock type pain. Denies pain elsewhere at this time. If necessary, patient could probably tolerate a very low dose opiate without having a significant detrimental effect on respiratory status. * Dyspnea: Dyspnea appears to be managed at this time with supplemental oxygen , nebulizer treatments, steroids, diuresis, antibiotics. Dyspnea is probably a combination of congestive heart failure and COPD exacerbation. As above if necessary, low-dose opiate and or a benzodiazepine could help alleviate air hunger without significantly compromising respiratory status. * Generalized weakness == Palliative care we'll continue to follow to assist with symptom management and to further clarify goals of care as the clinical course evolves. Attestation To help prompt me to consider important information that might be impacting today's encounter and assessment, information from prior notes written by myself or my colleagues may have been "brought forward" into today's note. My signature on this note, however, is an attestation that I personally performed the exam, history, and/or decision-making noted today, and, unless otherwise indicated, the interactions with patient, family, and staff as well as the review of records all occurred today. I also attest that the listed assessment and stated plan reflect my best clinical judgment today based on the combination of historical information, prior notes, and today's exam/ interactions. When time spent is documented, it refers only to time spent today by the signer, or if indicated, combined time spent today by collaborating physician/nurse practitioner. Nabeel Matthews Feb 27, 2017 17:38
[2017-02-27] MEDS ORDERED: PHARMACY ORDERED LAB ONE (19:45)
== END 2017-02-27 19:25 | disposition hospice, inpatient (51) | DRG 871 ==
LOC: NEPC 06:17 → NEDA 08:20 → N03A 10:29
PROVIDERS: ADMIT Anesthesiology; ATTEND Anesthesiology
PROC: 5A09457 Assistance with Respiratory Ventilation, 24-96 Consecutive Hours, Continuous Positive Airway Pressure (ICD-10-PCS; principal; 2017-02-24)
DX: A41.9 Sepsis, unspecified organism (principal); J18.9 Pneumonia, unspecified organism; J96.01 Acute respiratory failure with hypoxia; I50.23 Acute on chronic systolic (congestive) heart failure; I13.0 Hypertensive heart and chronic kidney disease with heart failure and stage 1 through stage 4 chronic kidney disease, or unspecified chronic kidney disease; I24.8 Other forms of acute ischemic heart disease; E11.22 Type 2 diabetes mellitus with diabetic chronic kidney disease; J44.0 Chronic obstructive pulmonary disease with (acute) lower respiratory infection; J44.1 Chronic obstructive pulmonary disease with (acute) exacerbation; N13.8 Other obstructive and reflux uropathy; E11.40 Type 2 diabetes mellitus with diabetic neuropathy, unspecified; R65.20 Severe sepsis without septic shock; N18.3 Chronic kidney disease, stage 3 (moderate); I48.91 Unspecified atrial fibrillation; E78.00 Pure hypercholesterolemia, unspecified; K21.9 Gastro-esophageal reflux disease without esophagitis; I25.5 Ischemic cardiomyopathy; E78.5 Hyperlipidemia, unspecified; I25.10 Atherosclerotic heart disease of native coronary artery without angina pectoris; I25.2 Old myocardial infarction; D35.00 Benign neoplasm of unspecified adrenal gland; N40.1 Benign prostatic hyperplasia with lower urinary tract symptoms; G40.909 Epilepsy, unspecified, not intractable, without status epilepticus; I08.0 Rheumatic disorders of both mitral and aortic valves; R41.3 Other amnesia; R63.4 Abnormal weight loss; F17.210 Nicotine dependence, cigarettes, uncomplicated; F60.2 Antisocial personality disorder; F32.9 Major depressive disorder, single episode, unspecified; F41.9 Anxiety disorder, unspecified; Y95 Nosocomial condition; Z51.5 Encounter for palliative care; Z66 Do not resuscitate; Z79.01 Long term (current) use of anticoagulants; Z79.84 Long term (current) use of oral hypoglycemic drugs; Z88.7 Allergy status to serum and vaccine; Z95.1 Presence of aortocoronary bypass graft; Z95.810 Presence of automatic (implantable) cardiac defibrillator; Z96.641 Presence of right artificial hip joint; Z99.81 Dependence on supplemental oxygen
CPT/HCPCS: 36600; 71045; 74018; 80048; 80053; 82550; 82552; 82805; 82948; 83605; 83735; 83880; 84100; 84484; 85025; 85027; 85610; 85730; 86403; 87040; 87077; 87086; 87185; 87186; 87205; 87641; 87804; 93005; 94002; 94003; 94640; 94664; 96365; 96367; 96375; J0131; J0456; J0692; J0696; J1630; J1815; J1940; J2060; J2920; J2930; J3370; J3430; J3480; J7030; J7040; J7050; P9045